=== PATIENT | female | born 2000 | race Caucasian/White ===

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

== ENCOUNTER → 2020-10-12 17:14 | Outpatient (CLI) | payer OTHER, SELFPAY ==
[2020-10-12 17:40] LABS: Basophils # 0.1 K/mm3 (0-0.2); Basophils % 0.5 % (0.1-2.0); Eosinophils % 0.3 % (0.1-12.0); Hematocrit 46.1 % (37.0-47.0); Hemoglobin 14.4 g/dL (12.2-16.2); Lymphocytes # 2.9 K/mm3 (0.7-4.5); Lymphocytes % 26.7 % (10-50); Mean Corpuscular HGB Conc 31.2 g/dL (31.8-35.4); Mean Corpuscular Hemoglobin 26.3 pg (27.0-31.2); Mean Corpuscular Volume 84.2 fl (81-99); Mean Platelet Volume 7.5 fl (7.4-10.4); Monocytes # 0.6 K/mm3 (0.1-1.0); Monocytes % 5.3 % (1.7-9.3); Neutrophils # 7.2 K/mm3 (1.8-7.8); Neutrophils % 67.2 % (37.0-80.0); Platelet Count 283 K/mm3 (142-424); Red Blood Count 5.48 M/mm3 (4.20-5.40); Red Cell Distribution Width 13.5 % (11.5-17.5); White Blood Count 10.7 K/mm3 (4.5-13.0)
[2020-10-12 17:58] LABS: Alanine Aminotransferase 39 U/L (12-78); Albumin Level 5.1 g/dl (3.5-5.0); Albumin/Globulin Ratio 1.5 (1.1-1.8); Alkaline Phosphatase 79 U/L (38-126); Anion Gap 13.2 mEq/L (5-15); Aspartate Amino Transferase 38 U/L (14-36); Bilirubin,Total 0.6 mg/dl (0.2-1.3); Blood Urea Nitrogen 6 mg/dl (7-17); Calcium 10.2 mg/dl (8.4-10.2); Carbon Dioxide 26 mmol/L (22.0-30.0); Chloride 106 mmol/L (98-107); Estimated Glomerular Filt Rate 91 ml/min (>60); GFR (African American) 111 ML/MIN (>60); Globulin 3.3 g/dL (1.3-3.2); Glucose 97 mg/dl (74-100); Potassium 4.2 mmoL/L (3.5-5.1); Sodium 141 mmol/L (136-145); Total Protein,Serum 8.4 g/dl (6.3-8.2)
[2020-10-15 09:14] LABS: Hep A Ab, IgM Negative (Negative); Hepatitis B Core Antibody IgM Negative (Negative); Hepatitis B Surface Antigen Negative (Negative)
[2020-10-15 10:51] LABS: Hepatitis C Antibody 0.1 s/co ratio (0.0-0.9)
== END ==
PROVIDERS: Visit Provider Internal Medicine Adolescent Medicine
DX: F31.31 Bipolar disorder, current episode depressed, mild (principal)
CPT/HCPCS: 36415; 80053; 80074; 85025

== ENCOUNTER 2021-01-22 19:39 | Emergency (ER) | payer OTHER, SELFPAY ==
[2021-01-22 20:15] VITALS: BP 129/73; PULSE 99; RESP 18; TEMP 37; O2SAT 99; BMI 34.9
--- NOTE | 2021-01-22 20:50 | HMH.EDUTC ---
[facility] [place] Clinical Impression: Pilonidal cyst Cellulitis Qualifiers: Site of cellulitis: buttock Qualified Code(s): L03.317 - Cellulitis of buttock Disposition: Home, Self-Care Condition on Discharge: Good Instructions: Cellulitis, Pilonidal Cyst Additional Instructions: Do Sitz baths of sit in a tub of warm salt water 2 or 3 times per day for 15 minutes each. Take the medication as directed. Apply the topical medication as directed. Prescriptions: Sulfamethoxazole/Trimethoprim [Bactrim DS tablet] 1 each PO BID 10 Days #20 tab Transmission Status: Received by [facility] #[id number] Mupirocin [Bactroban 2% Ointment 22gm tube] 1 applicatio TP TID 7 Days #1 tube Transmission Status: Received by [facility] #[id number] cephALEXin [cephALEXin 500mg capsule] 500 mg PO Q6H 10 Days #40 cap Transmission Status: Received by [facility] #[id number] Referrals: Ravi Askew MD [Primary Care Provider] - Forms: Work/School Release Time of Disposition: 21:26 Medical Decision Making - Medical Records Medical records reviewed: No: I reviewed the patient's medical records. - Vivek Inquiry Pt receiving controlled substance: No Vital Signs: 01/22/21 20:15 01/22/21 21:24 Temperature 98.6 F 98.6 F Temperature Source Oral Pulse Rate 99 H Pulse Rate [Right Brachial] 99 H Respiratory Rate 18 18 Blood Pressure 129/73 Blood Pressure [Right Arm] 129/73 Blood Pressure Mean [Right Arm] 91 Blood Pressure Source [Right Arm] Automatic Cuff Blood Pressure Position [Right Arm] Sitting 02 Sat by Pulse Oximetry 99 Oxygen Delivery Method Room Air Orders (Tests/Meds): ED MEDICATIONS Discontinued Medications Generic Name Dose Route Start Last Admin Trade Name Freq PRN Reason Stop Dose Admin Ceftriaxone Sodium 1 gm 01/22/21 20:51 01/22/21 20:59 Ceftriaxone 1gm Vial IM 01/22/21 20:52 1 gm ONCE ONE Administration Protocol Lidocaine HCl 0 ml 01/22/21 20:51 01/22/21 20:59 Lidocaine 1% 5ml Pf Vial IM 01/22/21 20:52 2.1 ml ONCE ONE Administration [facility] [place] - General Stated complaint: infect insect bite on back Time Seen by Provider: 01/22/21 20:25 Mode of Arrival: Ambulatory Source of Information: Patient Limitations: No Limitations Description of Symptoms (Recalled from Triage Doc. by RN): PATIENT C/O POSSIBLE BUG BITE/ALLERGIC REACTION TO LOWER BACK X 5 DAYS HEENT Symptoms (Recalled from RN notes): No Resp Symptoms (Recalled from RN notes): No Skin Symptoms (Recalled from RN notes): Yes MS Symptoms (Recalled from RN notes): No Functional Status (Recalled from RN notes): WNL - History of Present Illness Provider Complaint: She states that on her very lower back there is swelling and drainage from an infection. She thinks that she got bit by a bug and it started this. She denies any fever or chills. - Related Data Home Medications Medication Instructions Recorded Confirmed L norgest/E estradiol-E estrad 1 tab PO 91 Days tab 02/03/18 03/04/19 0.15 mg-30 mcg (84)/10 mcg(7) tabs,3mos loratadine 10 mg tablet 10 mg PO 30 Days tab 02/03/18 03/04/19 aripiprazole 15 mg tablet PO #30 tab 03/04/19 03/04/19 fluticasone propionate 50 INTRANASAL #16 g 03/04/19 03/04/19 mcg/actuation nasal spray,suspension hydroxyzine pamoate 25 mg capsule PO #100 cap 03/04/19 03/04/19 Previous Rx's Medication Instructions Recorded amoxicillin 875 mg tablet 875 mg PO BID 10 Days #20 tab 03/04/19 ukkeqsmebmoalif-snckfuopseqwutu-SB 10 ml PO Q4-6H PRN #220 ml 03/04/19 2 mg-30 mg-10 mg/5 mL oral syrup Mupirocin [Bactroban 2% Ointment 1 applicatio TP TID 7 Days #1 tube 01/22/21 22gm tube] Sulfamethoxazole/Trimethoprim 1 each PO BID 10 Days #20 tab 01/22/21 [Bactrim DS tablet] cephALEXin [cephALEXin 500mg 500 mg PO Q6H 10 Days #40 cap 01/22/21 capsule] Allergies Allergy/AdvReac Type Severity Reaction Status Date / Time No Known Jameel
[2021-01-22 21:24] VITALS: BP 129/73; PULSE 99; RESP 18; TEMP 37; O2SAT 99
== END 2021-01-22 21:39 | disposition home or self-care (01) ==
PROVIDERS: Emergency Provider Nurse Practitioner Family; PCP Internal Medicine Adolescent Medicine
DX: L05.91 Pilonidal cyst without abscess (principal); F17.210 Nicotine dependence, cigarettes, uncomplicated
CPT/HCPCS: 96372; 99202; G0463

== ENCOUNTER 2021-10-16 09:37 | Emergency (ER) | payer OTHER, SELFPAY ==
[2021-10-16] VITALS (8 sets, daily range): BP systolic 112–137; BP diastolic 53–85; PULSE 73–93; RESP 17–18; TEMP 36.6–36.9; O2SAT 4–99; BMI 32.0
--- NOTE | 2021-10-16 11:06 | HMH.EDUTC ---
[facility] [place] [facility] [place] Impression: Viral upper respiratory infection Decreased movement Qualifiers: Fetus number: fetus 6 or greater Trimester: unspecified trimester Qualified Code(s): O36.8199 - Decreased movements, unspecified trimester, other fetus Disposition: Home, Self-Care Condition on Discharge: Fair Instructions: DI for Viral Upper Respiratory Infection -- Adult Additional Instructions: Follow-up in Dr. Li's office on Thursday for further evaluation, ultrasound. Return to emergency department if any severe abdominal pain, vaginal bleeding, uncontrollable vomiting, bloody diarrhea, fever greater than 100.[address] Cortez office called with appt time Thursday at 10am for ultrasound and then 10:30 for office visit. Referrals: Ravi Askew MD [Primary Care Provider] - Forms: Work/School Release Time of Disposition: 11:17 Medical Decision Making - Vivek Inquiry Pt receiving controlled substance: No Vivek was queried for this patient: No Vital Signs: 10/16/21 10:50 10/16/21 11:18 10/16/21 12:00 Temperature 98 F 98.5 F Temperature Source Oral Oral Pulse Rate 78 Pulse Rate [Left] 93 H 73 Respiratory Rate 18 18 Blood Pressure 134/53 L Blood Pressure [Right Arm] 128/77 134/60 Blood Pressure Mean 82 Blood Pressure Mean [Right Arm] 94 84 Blood Pressure Source [Right Arm] Automatic Cuff Blood Pressure Position [Right Arm] Sitting 02 Sat by Pulse Oximetry 99 99 97 Oxygen Delivery Method Room Air 10/16/21 12:30 10/16/21 13:00 10/16/21 13:32 Temperature Temperature Source Pulse Rate 78 84 83 Pulse Rate [Left] Respiratory Rate Blood Pressure 137/85 127/74 137/79 Blood Pressure [Right Arm] Blood Pressure Mean 94 92 98 Blood Pressure Mean [Right Arm] Blood Pressure Source [Right Arm] Blood Pressure Position [Right Arm] 02 Sat by Pulse Oximetry 99 98 95 Oxygen Delivery Method 10/16/21 15:05 10/16/21 15:38 Temperature 98.5 F Temperature Source Oral Pulse Rate 80 81 Pulse Rate [Left] Respiratory Rate 17 Blood Pressure 114/53 L 112/74 Blood Pressure [Right Arm] Blood Pressure Mean 68 Blood Pressure Mean [Right Arm] Blood Pressure Source [Right Arm] Blood Pressure Position [Right Arm] 02 Sat by Pulse Oximetry 4 L Oxygen Delivery Method Room Air - Lab Data Lab Results 10/16/21 11:23: Urine Color Yellow, Urine Appearance Clear, Urine pH 7.0, Ur Specific [place] <= 1.005, Urine Protein Negative, Urine Glucose (UA) Negative, Urine Ketones 2+, Urine Blood Negative, Urine Nitrate Negative, Urine Bilirubin Negative, Urine Urobilinogen 0.2, Ur Leukocyte Esterase Negative, Urine RBC None, Urine WBC None, Ur Squamous Epith Cells 3-5, Urine Bacteria Trace 10/16/21 13:01: SARS-CoV-2 (PCR) Not detected, Influenza A Untype (PCR) Not detected, Influenza Type B (PCR) Not detected 10/16/21 14:14: WBC 11.2 H, RBC 4.52, Hgb 12.9, Hct 38.7, MCV 85.6, MCH 28.4, MCHC 33.2, RDW 13.8, Plt Count 257, MPV 8.1, Neut % (Auto) 74.4, Lymph % (Auto) 17.8, [place] % (Auto) 4.0, Eos % (Auto) 3.0, Baso % (Auto) 0.8, Neut # (Auto) 8.3 H, Lymph # (Auto) 2.0, [place] # (Auto) 0.4, Eos # (Auto) 0.3, Baso # (Auto) 0.1 10/16/21 14:14: Sodium 137, Potassium 3.6, Chloride 103, Carbon Dioxide 23, Anion Gap 14.6, BUN 4 L, Creatinine 0.50 L, Estimated Creat Clear 277, Estimated GFR 156, Est GFR ( Amer) 188, Glucose 77, Calcium 8.9, Total Bilirubin 0.8, AST 25, ALT 21, Alkaline Phosphatase 87, Total Protein 7.7, Albumin 4.2, Globulin 3.5 H, Albumin/Globulin Ratio 1.2 Result diagrams: 10/16/21 14:14 10/16/21 14:14 Orders (Tests/Meds): ED MEDICATIONS Discontinued Medications Generic Name Dose Route Start Last Admin Trade Name Freq PRN Reason Stop Dose Admin Sodium Chloride 1,000 ml 10/16/21 13:50 10/16/21 14:17 Sodium Chloride 0.9% 1000ml Bag IV 10/16/21 13:51 1,000 ml BOLUS ONE Administration Sodium Chloride 10 ml 10/16/21 13:50 S
--- NOTE | 2021-10-16 11:16 | PC.NURSE ---
FHT obtained via doppler, HR 146 notified ACACIA ASHER
--- NOTE | 2021-10-16 11:25 | PC.NURSE ---
contacted OB department spoke with DEYSI Bhatt; states with pt being 21 weeks they would obtain heart tones is all they would do, states fetus it too early for an NST. Relayed information to ACACIA ASHER
--- NOTE | 2021-10-16 11:30 | PC.NURSE ---
ACACIA ASHER at
[2021-10-16 11:51] LABS: Microscopic, Urine URINE MICROSCOPIC (MICROSCOPIC)
[2021-10-16 11:55] LABS: Appearance,Urine CLEAR (Clear); Bilirubin,Urine Negative (Negative); Blood, Urine Negative (Negative); Color,Urine YELLOW (Yellow); Glucose,Urine (UA) Negative (Negative); Ketones,Urine 2+ (Negative); Leukocyte Esterase,Urine Negative (Negative); Nitrate,Urine Negative (Negative); Protein,Urine Negative (Negative); Specific Gravity, Urine <= 1.005 (1.005-1.030); Urobilinogen,Urine 0.2 EU/dl (0.2)
[2021-10-16 12:07] LABS: Bacteria,Urine Trace /lpf
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
[2021-10-16 13:09] LABS: Coronavirus 19, PCR Not Detected (NotDetected); Influenza A, PCR Not Detected (NotDetected); Influenza B, PCR Not Detected (NotDetected)
--- NOTE | 2021-10-16 13:23 | HMH.EDGENADL ---
ED Disposition Clinical Impression: Viral upper respiratory infection Decreased movement Qualifiers: Fetus number: fetus 6 or greater Trimester: unspecified trimester Qualified Code(s): O36.8199 - Decreased movements, unspecified trimester, other fetus Disposition: Home, Self-Care Condition on Discharge: Good Instructions: DI for Viral Upper Respiratory Infection -- Adult Additional Instructions: Follow-up in Dr. Li's office on Thursday for further evaluation, ultrasound. Return to emergency department if any severe abdominal pain, vaginal bleeding, uncontrollable vomiting, bloody diarrhea, fever greater than 100.5 degrees. Referrals: Ravi Askew MD [Primary Care Provider] - - Critical Care Critical Care Time: No Attestation: On 10/16/21, the high probability of a clinically significant, sudden or life threatening deterioration of the following system(s) required my full and direct attention, intervention and personal management. The time I documented below is in addition to time spent performing reported procedures but includes the following listed in this critical care notation. Medical Decision Making - Vivek Inquiry Pt receiving controlled substance: No Vital Signs: 10/16/21 10:50 10/16/21 11:18 10/16/21 12:00 Temperature 98 F 98.5 F Temperature Source Oral Oral Pulse Rate 78 Pulse Rate [Left] 93 H 73 Respiratory Rate 18 18 Blood Pressure 134/53 L Blood Pressure [Right Arm] 128/77 134/60 Blood Pressure Mean 82 Blood Pressure Mean [Right Arm] 94 84 Blood Pressure Source [Right Arm] Automatic Cuff Blood Pressure Position [Right Arm] Sitting 02 Sat by Pulse Oximetry 99 99 97 Oxygen Delivery Method Room Air - Lab Data Lab Results 10/16/21 11:23: Urine Color Yellow, Urine Appearance Clear, Urine pH 7.0, Ur Specific [place] <= 1.005, Urine Protein Negative, Urine Glucose (UA) Negative, Urine Ketones 2+, Urine Blood Negative, Urine Nitrate Negative, Urine Bilirubin Negative, Urine Urobilinogen 0.2, Ur Leukocyte Esterase Negative, Urine RBC None, Urine WBC None, Ur Squamous Epith Cells 3-5, Urine Bacteria Trace 10/16/21 13:01: SARS-CoV-2 (PCR) Not detected, Influenza A Untype (PCR) Not detected, Influenza Type B (PCR) Not detected Orders (Tests/Meds): ED MEDICATIONS Generic Name Dose Route Start Last Admin Trade Name Freq PRN Reason Stop Dose Admin Sodium Chloride 10 ml 10/16/21 13:50 Sodium Chloride 0.9% 10ml Flush Syringe IV 11/15/21 13:49 NEEDED PRN Maintain IV Site Discontinued Medications Generic Name Dose Route Start Last Admin Trade Name Freq PRN Reason Stop Dose Admin Sodium Chloride 1,000 ml 10/16/21 13:50 Sodium Chloride 0.9% 1000ml Bag IV 10/16/21 13:51 BOLUS ONE ORDERS Category Date Time Status Complete Blood Count Auto Diff Stat Lab 10/16/21 13:50 Ordered Comprehensive Metabolic Panel Stat Lab 10/16/21 13:50 Ordered - Physician Consults Physician Consulted: Guillermo Time: 13:52 Reason -: Obstetrical Eval/Care Comment/Response: Agrees with management. Discharge after IV fluids. Follow-up in their office on Thursday. They will call the emergency department with an appointment time. General Adult HPI - General Chief complaint: OB/Uterine Contractions Stated complaint: cough, fever, congestion, vomiting, diarrhea Time Seen by Provider: 10/16/21 13:23 Mode of Arrival: Ambulatory Limitations: No Limitations Description of Symptoms (Recalled from ER Triage Doc. by RN): Pt reports has not felt movement since yesterday morning. Pt reports she contacted her OB office who directed her to be seen in ER. Pt denies vaginal bleeding, denies pelvic pain. Pt reports sheis 21 weeks gestation, G1. OB is Dr. Li in [place]. Pt also reports has had diarrhea, cough and congestion. - History of Present Illness HPI narrative: Prima , 21 weeks gestation . Sent from the urgent treatmen
--- NOTE | 2021-10-16 13:35 | PC.NURSE ---
Called Dr Dana MANRIQUEZ in [place], to consult with patient. He was not in but they are going to have interactive developer Dr palm back.
[2021-10-16 14:23] LABS: Basophils # 0.1 K/mm3 (0-0.2); Basophils % 0.8 % (0.1-2.0); Eosinophils # 0.3 K/mm3 (0.0-0.4); Hematocrit 38.7 % (37.0-47.0); Hemoglobin 12.9 g/dL (12.2-16.2); Lymphocytes % 17.8 % (10-50); Mean Corpuscular HGB Conc 33.2 g/dL (31.8-35.4); Mean Corpuscular Hemoglobin 28.4 pg (27.0-31.2); Mean Corpuscular Volume 85.6 fl (81-99); Mean Platelet Volume 8.1 fl (7.4-10.4); Monocytes # 0.4 K/mm3 (0.1-1.0); Neutrophils # 8.3 K/mm3 (1.8-7.8); Neutrophils % 74.4 % (37.0-80.0); Platelet Count 257 K/mm3 (142-424); Red Blood Count 4.52 M/mm3 (4.20-5.40); Red Cell Distribution Width 13.8 % (11.5-17.5); White Blood Count 11.2 K/mm3 (4.8-10.8)
[2021-10-16 14:30] LABS: Chloride 103 mmol/L (98-107); Potassium 3.6 mmoL/L (3.5-5.1); Sodium 137 mmol/L (136-145)
[2021-10-16 14:33] LABS: Alanine Aminotransferase 21 U/L (12-78); Albumin Level 4.2 g/dl (3.5-5.0); Albumin/Globulin Ratio 1.2 (1.1-1.8); Alkaline Phosphatase 87 U/L (38-126); Anion Gap 14.6 mEq/L (5-15); Aspartate Amino Transferase 25 U/L (14-36); Bilirubin,Total 0.8 mg/dl (0.2-1.3); Blood Urea Nitrogen 4 mg/dl (7-17); Carbon Dioxide 23 mmol/L (22.0-30.0); Creatinine Clearance Estimated 277 mL/min (50-200); Estimated Glomerular Filt Rate 156 ml/min (>60); GFR (African American) 188 ML/MIN (>60); Globulin 3.5 g/dL (1.3-3.2); Total Protein,Serum 7.7 g/dl (6.3-8.2)
[2021-10-16 14:34] LABS: Calcium 8.9 mg/dl (8.4-10.2); Glucose 77 mg/dl (74-100)
== END 2021-10-16 15:41 | disposition home or self-care (01) ==
LOC: UTC 09:42 → ER 11:10
PROVIDERS: Emergency Provider Emergency Medicine; PCP Internal Medicine Adolescent Medicine
DX: J06.9 Acute upper respiratory infection, unspecified (principal); R11.2 Nausea with vomiting, unspecified; O36.8121 Decreased fetal movements, second trimester, fetus 1; J45.909 Unspecified asthma, uncomplicated; F17.210 Nicotine dependence, cigarettes, uncomplicated
CPT/HCPCS: 80053; 81001; 85025; 96360; 96365; 99283; C9803; U0003; U0005

== ENCOUNTER 2021-12-01 08:23 | Outpatient (CLI) | payer OTHER, SELFPAY ==
[2021-12-01 08:26] VITALS: BP 132/76; PULSE 92; RESP 18; O2SAT 98; BMI 33.0
[2021-12-01 08:32] VITALS: BMI 37.3
[2021-12-01 08:53] LABS: Microscopic, Urine URINE MICROSCOPIC (MICROSCOPIC)
[2021-12-01 08:59] LABS: Appearance,Urine CLOUDY (Clear); Blood, Urine Negative (Negative); Color,Urine ORANGE (Yellow); Glucose,Urine (UA) Negative (Negative); Ketones,Urine 3+ (Negative); Leukocyte Esterase,Urine Negative (Negative); Nitrate,Urine POSITIVE (Negative); Protein,Urine 3+ (Negative); Specific Gravity, Urine >= 1.030 (1.005-1.030); Urobilinogen,Urine 0.2 EU/dl (0.2)
[2021-12-01 09:08] LABS: Barbiturates Screen,Urine Negative ng/ml (<200)
[2021-12-01 09:09] LABS: Benzodiazepines Screen,Urine Negative ng/ml (<200)
[2021-12-01 09:10] LABS: Amphetamine/Metha Screen,Urine Negative ng/ml (<1000); Cannabinoid Screen,Urine Positive ng/ml (<50)
[2021-12-01 09:11] LABS: Cocaine Screen,Urine Negative ng/ml (<300)
[2021-12-01 09:12] LABS: Methadone Screen,Urine Negative ng/ml (<300); Opiate Screen,Urine Negative ng/ml (<300)
[2021-12-01 09:13] LABS: Phencyclidine Screen,Urine Negative ng/ml (<25)
[2021-12-01 09:17] LABS: Coronavirus 19, PCR Not Detected (NotDetected); Influenza A, PCR Not Detected (NotDetected); Influenza B, PCR Not Detected (NotDetected)
[2021-12-01 09:24] LABS: Bilirubin,Urine 2+ (Negative)
[2021-12-01 09:25] LABS: Amorphous Sediment,Urine 1+ /lpf; Bacteria,Urine 4+ /lpf; RBC,Urine Occasional #/hpf (0-3)
[2021-12-01 09:44] LABS: Basophils # 0.2 K/mm3 (0-0.2); Basophils % 1.1 % (0.1-2.0); Hematocrit 37.9 % (37.0-47.0); Hemoglobin 12.9 g/dL (12.2-16.2); Lymphocytes # 1.7 K/mm3 (0.7-4.5); Lymphocytes % 10.1 % (10-50); Mean Corpuscular Hemoglobin 29.1 pg (27.0-31.2); Mean Corpuscular Volume 85.8 fl (81-99); Mean Platelet Volume 8.3 fl (7.4-10.4); Monocytes # 0.6 K/mm3 (0.1-1.0); Monocytes % 3.3 % (1.7-9.3); Neutrophils # 14.6 K/mm3 (1.8-7.8); Neutrophils % 85.4 % (37.0-80.0); Platelet Count 245 K/mm3 (142-424); Red Blood Count 4.42 M/mm3 (4.20-5.40); Red Cell Distribution Width 13.4 % (11.5-17.5); White Blood Count 17.1 K/mm3 (4.8-10.8)
[2021-12-01 09:47] LABS: MANUAL DIFFERENTIAL MANUAL DIFFERENTIAL (MANUAL DIFF)
[2021-12-01 09:56] LABS: Chloride 100 mmol/L (98-107); Potassium 3.6 mmoL/L (3.5-5.1); Sodium 136 mmol/L (136-145)
[2021-12-01 09:58] LABS: Blood Urea Nitrogen 5 mg/dl (7-17); Creatinine Clearance Estimated 277 mL/min (50-200); Estimated Glomerular Filt Rate 156 ml/min (>60); GFR (African American) 188 ML/MIN (>60)
[2021-12-01 09:59] LABS: Alanine Aminotransferase 20 U/L (12-78); Albumin Level 3.8 g/dl (3.5-5.0); Albumin/Globulin Ratio 1.3 (1.1-1.8); Alkaline Phosphatase 108 U/L (38-126); Anion Gap 13.6 mEq/L (5-15); Aspartate Amino Transferase 23 U/L (14-36); Bilirubin,Total 0.6 mg/dl (0.2-1.3); Calcium 9.9 mg/dl (8.4-10.2); Carbon Dioxide 26 mmol/L (22.0-30.0); Globulin 2.9 g/dL (1.3-3.2); Glucose 118 mg/dl (74-100); Total Protein,Serum 6.7 g/dl (6.3-8.2)
[2021-12-01 10:33] LABS: Lymphocytes % 18 % (10-50); Monocytes % 2 % (2-9); Neutrophils % 80 % (42-76); Total Cells Counted 100
[2021-12-01 10:34] LABS: Platelet Estimate Normal; RBC Morphology Normal
--- NOTE | 2021-12-01 12:06 | P.PN_ITS ---
Internal Medicine - PN: Subj *Date: 12/01/21 *Time: 12:06 Interval history: She is a 20-year-old 1 para 0 at 27 and 4 weeks gestational age. She has nausea, vomiting and diarrhea. She denies any fever or chills. She has been here for the last few hours and has had IV fluids. She is feeling much better. We gave her IV Zofran. She has had no further episodes of nausea or vomiting. She does have Zofran at home but she has the tablets rather than the ODT's. Blood work and urinalysis shows likely UTI with dehydration. She has positive nitrites. Exam Vital signs and Labs for Last 24 Hours: Pulse Resp BP Pulse Ox 92 H 18 132/76 98 12/01/21 08:26 12/01/21 08:26 12/01/21 08:26 12/01/21 08:26 Laboratory Results - last 24 hr 12/01/21 08:35: Urine Color [place], Urine Appearance Cloudy, Urine pH 6.0, Ur Specific [place] >= 1.030, Urine Protein 3+, Urine Glucose (UA) Negative, Urine Ketones 3+, Urine Blood Negative, Urine Nitrate Positive, Urine Bilirubin 2+ A, Urine Urobilinogen 0.2, Ur Leukocyte Esterase Negative, Urine RBC Occasional, Urine WBC 3-5, Ur Squamous Epith Cells 5-10, Amorphous Sediment 1+, Urine Bacteria 4+ 12/01/21 08:35: Urine Opiates Screen Negative, Urine Methadone Screen Negative, Ur Barbituates Screen Negative, Ur Phencyclidine Scrn Negative, Ur Amphetamines Screen Negative, U Benzodiazepines Scrn Negative, Urine Cocaine Screen Negative, U Marijuana (THC) Screen Positive H 12/01/21 09:10: SARS-CoV-2 (PCR) Not detected, Influenza A Untype (PCR) Not detected, Influenza Type B (PCR) Not detected 12/01/21 09:25: WBC 17.1 H, RBC 4.42, Hgb 12.9, Hct 37.9, MCV 85.8, MCH 29.1, MCHC 34.0, RDW 13.4, Plt Count 245, MPV 8.3, Neut % (Auto) 85.4 H, Lymph % (Auto) 10.1, [place] % (Auto) 3.3, Eos % (Auto) 0.0 L, Baso % (Auto) 1.1, Neut # (Auto) 14.6 H, Lymph # (Auto) 1.7, [place] # (Auto) 0.6, Eos # (Auto) 0.0, Baso # (Auto) 0.2, Total Counted 100, Neutrophils % (Manual) 80 H, Lymphocytes % (Manual) 18, Monocytes % (Manual) 2, Platelet Estimate Normal, RBC Morphology Normal 12/01/21 09:25: Sodium 136, Potassium 3.6, Chloride 100, Carbon Dioxide 26, Anion Gap 13.6, BUN 5 L, Creatinine 0.50 L, Estimated Creat Clear 277, Estimated GFR 156, Est GFR ( Amer) 188, Glucose 118 H, Calcium 9.9, Total Bilirubin 0.6, AST 23, ALT 20, Alkaline Phosphatase 108, Total Protein 6.7, Albumin 3.8, Globulin 2.9, Albumin/Globulin Ratio 1.3 I & O for Last 24 hours: Intake & Output 11/29/21 11/30/21 12/01/21 12/02/21 11:59 11:59 11:59 11:59 Weight 217 lb 8 oz - Constitutional no acute distress Assessment and Plan (1) Vomiting affecting Status: Acute Category: Medical Code(s): O21.9 - Vomiting of , unspecified (2) Dehydration Status: Acute Category: Medical Code(s): E86.0 - Dehydration (3) Urinary tract infection affecting Status: Acute Category: Medical Code(s): O23.40 - Unspecified infection of urinary tract in , unspecified trimester - Assessment and plan all Dx Assessment and Plan for all problems:: She has received 2 L of fluid and feels much better. She received IV Zofran. We will go ahead and start Keflex 500 mg p.o. twice daily for the next 7 days. She has received a dose of Ancef. We will call her in some Zofran ODT as well.
== END 2021-12-01 09:00 | disposition home or self-care (01) ==
LOC: OBOUT 08:24 → OB 08:25
PROVIDERS: PCP Internal Medicine Adolescent Medicine; Visit Provider Nurse Practitioner Obstetrics & Gynecology
DX: O26.892 Other specified pregnancy related conditions, second trimester (principal); Z3A.27 27 weeks gestation of pregnancy
CPT/HCPCS: 59025; 80053; 80305; 81001; 85007; 85025; 87086; 96365; 96366; 96367; C9803; G0463; J2405; U0003; U0005

== ENCOUNTER 2021-12-10 19:56 | Outpatient (CLI) | payer OTHER, SELFPAY ==
[2021-12-10 20:04] VITALS: BP 123/60; PULSE 72; RESP 17; TEMP 36.9; O2SAT 100; BMI 34.4
== END 2021-12-10 21:50 | disposition home or self-care (01) ==
LOC: OBOUT 19:58 → OB 19:59
PROVIDERS: Visit Provider Nurse Practitioner Obstetrics & Gynecology
DX: O21.2 Late vomiting of pregnancy (principal); Z3A.28 28 weeks gestation of pregnancy
CPT/HCPCS: 59025; 96365; G0463; J2405

== ENCOUNTER 2021-12-29 10:01 | Outpatient (CLI) | payer OTHER, SELFPAY ==
[2021-12-29 11:18] VITALS: BMI 33.4
[2021-12-29 11:25] VITALS: BP 145/87; PULSE 66; RESP 18; TEMP 36.4; O2SAT 100; BMI 33.4
[2021-12-29 11:33] LABS: Basophils # 0.4 K/mm3 (0-0.2); Basophils % 2.1 % (0.1-2.0); Chloride 104 mmol/L (98-107); Eosinophils % 0.2 % (0.1-12.0); Hematocrit 38.6 % (37.0-47.0); Hemoglobin 13.1 g/dL (12.2-16.2); Lymphocytes # 1.6 K/mm3 (0.7-4.5); Lymphocytes % 9.5 % (10-50); Mean Corpuscular HGB Conc 33.8 g/dL (31.8-35.4); Mean Platelet Volume 8.4 fl (7.4-10.4); Monocytes # 0.4 K/mm3 (0.1-1.0); Monocytes % 2.6 % (1.7-9.3); Neutrophils # 14.2 K/mm3 (1.8-7.8); Neutrophils % 85.5 % (37.0-80.0); Platelet Count 244 K/mm3 (142-424); Potassium 3.3 mmoL/L (3.5-5.1); Red Blood Count 4.49 M/mm3 (4.20-5.40); Red Cell Distribution Width 13.1 % (11.5-17.5); Sodium 136 mmol/L (136-145); White Blood Count 16.5 K/mm3 (4.8-10.8)
[2021-12-29 11:36] LABS: Blood Urea Nitrogen 3 mg/dl (7-17); Creatinine Clearance Estimated 278 mL/min (50-200); Estimated Glomerular Filt Rate 154 ml/min (>60); GFR (African American) 187 ML/MIN (>60)
[2021-12-29 11:37] LABS: Anion Gap 10.3 mEq/L (5-15); Calcium 9.2 mg/dl (8.4-10.2); Carbon Dioxide 25 mmol/L (22.0-30.0); Glucose 113 mg/dl (74-100)
[2021-12-29 11:39] LABS: MANUAL DIFFERENTIAL MANUAL DIFFERENTIAL (MANUAL DIFF)
[2021-12-29 12:24] LABS: Lymphocytes % 16 % (10-50); Neutrophils % 84 % (42-76); Platelet Estimate Normal; RBC Morphology Normal; Total Cells Counted 100
[2021-12-29 12:33] LABS: Microscopic, Urine URINE MICROSCOPIC (MICROSCOPIC)
[2021-12-29 12:37] LABS: Appearance,Urine SL CLOUDY (Clear); Blood, Urine Negative (Negative); Color,Urine YELLOW (Yellow); Glucose,Urine (UA) Negative (Negative); Ketones,Urine 1+ (Negative); Leukocyte Esterase,Urine Negative (Negative); Nitrate,Urine Negative (Negative); PH,Urine 8.5 (5.0-8.5); Protein,Urine 2+ (Negative); Specific Gravity, Urine 1.015 (1.005-1.030); Urobilinogen,Urine 0.2 EU/dl (0.2)
[2021-12-29 12:49] LABS: Barbiturates Screen,Urine Negative ng/ml (<200); Bilirubin,Urine 1+ (Negative)
[2021-12-29 12:50] LABS: Benzodiazepines Screen,Urine Negative ng/ml (<200)
[2021-12-29 12:51] LABS: Amorphous Sediment,Urine 1+ /lpf; Amphetamine/Metha Screen,Urine Negative ng/ml (<1000); Bacteria,Urine Trace /lpf; Cannabinoid Screen,Urine Positive ng/ml (<50)
[2021-12-29 12:52] LABS: Cocaine Screen,Urine Negative ng/ml (<300); Methadone Screen,Urine Negative ng/ml (<300)
[2021-12-29 12:53] LABS: Opiate Screen,Urine Negative ng/ml (<300)
[2021-12-29 12:54] LABS: Phencyclidine Screen,Urine Negative ng/ml (<25)
[2021-12-29 13:16] LABS: Alanine Aminotransferase 24 U/L (12-78); Aspartate Amino Transferase 31 U/L (14-36)
== END 2021-12-29 13:53 | disposition home or self-care (01) ==
LOC: OBOUT 10:07 → OB 10:08
PROVIDERS: PCP Internal Medicine Adolescent Medicine; Visit Provider Obstetrics & Gynecology
DX: O26.893 Other specified pregnancy related conditions, third trimester (principal); Z3A.31 31 weeks gestation of pregnancy; R11.2 Nausea with vomiting, unspecified; R19.7 Diarrhea, unspecified
CPT/HCPCS: 59025; 80048; 80305; 81001; 84450; 84460; 85007; 85025; 96365; 96367; G0463; J2405

== ENCOUNTER 2022-01-13 07:32 | Outpatient (CLI) | payer OTHER, SELFPAY ==
[2022-01-13 08:35] VITALS: BP 137/81; PULSE 108; RESP 20; TEMP 36.9; O2SAT 98; BMI 31.7
--- NOTE | 2022-01-13 08:50 | HMH.HPDC ---
General - General Admission date:: 01/13/2022 Discharge date: 01/13/22 (Transfer to [facility]) *Admission Date: 01/13/22 *Chief complaint: Contractions, possible leakage of fluid *History of present illness: Ms Marsha Mcgee is a 21 yo at 33+ weeks who presents to [facility] with complaint of contractions that started at 0600 this morning. She also thinks she may be leaking fluid. Patient is unattached. She is being cared for by [facility] office. She reports good movement. She denies difficulties during this . She denies past medical history. Upon arrival to [facility], SVE was 4-5/100/-1. heart tones category 1. [facility] History I have reviewed the patient's past medical history: Yes Medical History: Reports:: Asthma Denies:: Cancer, Diabetes Mellitus Type 1, Diabetes Mellitus Type 2, MRSA *Have you ever received a pneumonia vaccine?: No *Have you received a flu vaccine this season?: No Other Surgeries: Yes: No Previous Surgery Amputation: No Fractures: No - *Social History Smoking Status: Current every day smoker Tobacco Type: cigarettes # Packs/Day (cigarettes): 1 Alcohol Intake: never Substance Use Type: denies use *Occupational Status:: employed Housing: house Household Members: family *Travel in the last 8 weeks: None Family Hx:: Diabetes Para: 0 Review of Systems - Review of Systems Review of systems:: pertinent systems reviewed and negative unless documented below Exam Vital signs and Labs for Last 24 Hours: Temp Pulse Resp BP Pulse Ox 98.5 F 108 H 20 137/81 98 01/13/22 08:35 01/13/22 08:35 01/13/22 08:35 01/13/22 08:35 01/13/22 08:35 I & O for Last 24 hours: Intake & Output 01/10/22 01/11/22 01/12/22 01/13/22 23:59 23:59 23:59 23:59 Weight 215 lb - Constitutional no acute distress - *Routine HEENT Exam Head: Present: normocephalic Eye: Absent: conjunctivae pink ENT: Present: mucous membranes moist - *Routine Respiratory Exam Present: CTA bilaterally - *Routine Cardiovascular Exam Present: RRR - *Routine Abdominal Exam Present: soft. Absent: tenderness Comments: Gravid - *Routine Rectal Exam Rectal:: deferred - *Routine Genitalia Exam Genitalia:: normal female - *Routine Extremities Exam Present: edema, full ROM. Absent: calf tenderness Comments: +1 bilateral lower extremity edema - *Routine Neurological Exam Present: alert, oriented X3 Hospital Course Hospital Course: Ms Marsha Mcgee is a 21 yo at 33+ weeks who presented to [facility] with complaint of contractions that started at 0600 this morning. She thinks she is leaking fluid. Denies vaginal bleeding. Good movement. Denies complications during this . Past medical history significant for asthma. Upon arrival to L&D SVE was 4-5/100/-1. Cervical exam was performed early on arrival. Amnisure was not performed. FHT Category 1. [place] q 3-4. Patient received Celestone 12mg, Mag Sulfate 4 gm bolus with 1 gm/hr maintenance and Ampicillin 2 gram. Brethine 0.25 mg SQ x1 dose given. Patient receives care from [facility] office. Transfer to [facility] for labor. Discussed plan of care with patient. All questions addressed and answered. Patient and her family agree with plan. Rhogam Administration: Not Indicated DS: Diagnosis - Discharge Diagnosis (1) 1, currently Status: Acute (2) with 33 completed weeks gestation Status: Acute (3) labor Status: Acute (4) Asthma Status: Acute Discharge Plan - Patient Discharge Instructions ACTIVITY: Limited activity - Follow up Plan Condition at discharge:: Stable Home Medications: Home Medications Medication Instructions Recorded Confirmed Type L norgest/E estradiol-E estrad 1 tab PO 91 Days tab 02/03/18 03/04/19 History 0.15 mg-30 mcg (84)/10 mcg(7) tabs,3mos
== END 2022-01-13 10:21 | disposition short-term general hospital (02) ==
LOC: OBOUT 07:34 → OB 07:37
PROVIDERS: PCP Internal Medicine Adolescent Medicine; Visit Provider Obstetrics & Gynecology
DX: O47.03 False labor before 37 completed weeks of gestation, third trimester (principal); Z3A.33 33 weeks gestation of pregnancy
CPT/HCPCS: 59025; 96365; 96367; 96372; G0463; J0290; J0595; J2405

== ENCOUNTER 2022-08-19 09:49 | Outpatient (CLI) | payer OTHER, SELFPAY ==
[2022-08-19 09:57] VITALS: BMI 33.4
== END 2022-08-19 10:08 | disposition home or self-care (01) ==
PROVIDERS: PCP Internal Medicine Adolescent Medicine; Visit Provider Nurse Practitioner Family
DX: Z11.1 Encounter for screening for respiratory tuberculosis (principal)
CPT/HCPCS: 86580

== ENCOUNTER 2023-01-04 10:02 | Emergency (ER) | payer OTHER, SELFPAY ==
[2023-01-04 10:15] VITALS: BP 133/86; PULSE 86; RESP 18; TEMP 37.4; O2SAT 100; BMI 25.7
--- NOTE | 2023-01-04 10:42 | EXP.UTC ---
Discharge Plan Disposition Patient Disposition: Home, Self-Care Condition: Good Prescriptions Prescriptions: New amoxicillin [amoxicillin] 500 mg tablet 500 mg PO BID 10 Days Qty: 20 0RF No Action L norgest/e.estradiol-e.estrad 0.15 mg-30 mcg (84)/10 mcg (7) tablets,dose pack,3 month 1 tab PO 91 Days loratadine 10 mg tablet 10 mg PO 30 Days Label Comments: take 1 tablet by mouth once daily fluticasone propionate 50 mcg/actuation spray,suspension INTRANASAL Qty: 16 hydroxyzine pamoate 25 mg capsule PO Qty: 100 Label Comments: TAKE 1 CAPSULE BY MOUTH FOUR TIMES DAILY NEEDED MAY CAUSE DROWSINESS aripiprazole 15 mg tablet PO Qty: 30 amoxicillin 875 mg tablet 875 mg PO BID 10 Days Qty: 20 0RF ghurkslcrbldlns-ybxuhilou-NK 2-30-10 mg/5 mL syrup 10 ml PO Q4-6H PRN (Reason: sinus symptoms) Qty: 220 0RF sulfamethoxazole-trimethoprim 1 EACH tablet 1 each PO BID 10 Days Qty: 20 0RF mupirocin 22 GM ointment 1 applicatio TP TID 7 Days Qty: 1 0RF ondansetron 4 MG tablet,disintegrating 4 mg PO TIDP PRN (Reason: Nausea And Vomiting) Qty: 20 0RF cephalexin 500 MG capsule 500 mg PO Q6H 10 Days Qty: 40 0RF Referrals Follow up/Referrals: Ravi Askew MD [Primary Care Provider] - See instructions Activity Restrictions/Add. Instructions Additional Instructions/Restrictions: Start antibiotic as soon as possible and be sure to take as ordered for full length of time even though he should start feeling better in 24-48 hours. Tylenol or Motrin as needed for pain or fever Encourage fluids, water, Gatorade, Powerade, Pedialyte if infant/toddler/child Warm compresses often helps when placed over ear Return immediately for new or worsening symptoms no noticeable improvement in 48-72 hours and in 10-14 days to ensure the ears are return to baseline. Follow-up with primary care Clinical Impressions Clinical Impression: Acute otitis media, bilateral Instructions Patient Instructions: Middle Ear Infection Discharge ED Provider: Georgina ([facility] [place])Ashley [facility] HPI General Stated complaint: Ear pain, congestion, drainage, sore throat Mode of Arrival: Ambulatory Source of Information: Patient Limitations: No Limitations Time Seen by Provider: 01/04/23 10:42 Description of Symptoms (Recalled from Triage Doc. by RN): PATIENT C/O LEFT EAR PAIN AND SINUS PRESSURE X 2 DAYS HEENT Symptoms (Recalled from RN notes): Yes Resp Symptoms (Recalled from RN notes): No Skin Symptoms (Recalled from RN notes): No MS Symptoms (Recalled from RN notes): No Functional Status (Recalled from RN notes): WNL History of Present Illness Provider Complaint: 22 yr old female presents for left ear pain and sinus pressure Related Data Home Medications Medication Instructions Recorded Confirmed L norgest/E estradiol-E estrad 1 tab PO 91 days 02/03/18 03/04/19 0.15 mg-30 mcg (84)/10 mcg(7) tabs,3mos loratadine 10 mg tablet 10 mg PO 30 days 02/03/18 03/04/19 aripiprazole 15 mg tablet PO #30 tabs 03/04/19 03/04/19 fluticasone propionate 50 intranasal #16 grams 03/04/19 03/04/19 mcg/actuation nasal spray,suspension hydroxyzine pamoate 25 mg capsule PO #100 caps 03/04/19 03/04/19 Previous Rx's Medication Instructions Recorded amoxicillin 875 mg tablet 875 mg PO BID 10 days #20 tabs 03/04/19 kvzxjapmcnebrqv-ccwivxddapjwkiu-[place] 10 ml PO Q4-6H PRN sinus symptoms 03/04/19 2 mg-30 mg-10 mg/5 mL oral syrup #220 mL mupirocin 2 % topical ointment 1 applicatio TP TID 7 days #1 tube 01/22/21 sulfamethoxazole 800 1 each PO BID 10 days #20 tabs 01/22/21 mg-trimethoprim 160 mg tablet cephalexin 500 mg capsule 500 mg PO Q6H 10 days #40 caps 12/01/21 ondansetron 4 mg disintegrating 4 mg PO TIDP PRN Nausea And 12/01/21 tablet Vomiting #20 tabs amoxicillin 500 mg tablet 500 mg PO BID 10 days #20 tabs 01/04/23 Allergies Allergy/AdvReac Type Severity Reaction Stat
[2023-01-04 10:45] VITALS: BP 133/86; PULSE 86; RESP 18; TEMP 37.4; O2SAT 100
== END 2023-01-04 10:50 | disposition home or self-care (01) ==
PROVIDERS: Emergency Provider Nurse Practitioner Family; PCP Internal Medicine Adolescent Medicine
DX: H66.93 Otitis media, unspecified, bilateral (principal); F17.210 Nicotine dependence, cigarettes, uncomplicated
CPT/HCPCS: 99212; 99214; G0463

== ENCOUNTER 2023-03-28 08:10 | Emergency (ER) | payer OTHER, SELFPAY ==
[2023-03-28 08:10] VITALS: BP 131/77; PULSE 87; RESP 20; TEMP 36.7; O2SAT 100; BMI 33.5
--- NOTE | 2023-03-28 08:33 | EXP.UTC ---
Discharge Plan Disposition Patient Disposition: Home, Self-Care Condition: Good Prescriptions Prescriptions: New albuterol sulfate [Proventil HFA] 90 mcg/actuation HFA aerosol inhaler 1 - 2 inh inhalation Q6H PRN (Reason: shortness of breath or wheezing) Qty: 8.5 0RF ibuprofen 600 mg tablet 600 mg PO Q6HP PRN (Reason: Moderate Pain) Qty: 20 0RF methocarbamol 500 mg tablet 500 mg PO TID Qty: 15 0RF No Action L norgest/e.estradiol-e.estrad 0.15 mg-30 mcg (84)/10 mcg (7) tablets,dose pack,3 month 1 tab PO 91 Days loratadine 10 mg tablet 10 mg PO 30 Days Patient Comments: take 1 tablet by mouth once daily fluticasone propionate 50 mcg/actuation spray,suspension INTRANASAL Qty: 16 hydroxyzine pamoate 25 mg capsule PO Qty: 100 Patient Comments: TAKE 1 CAPSULE BY MOUTH FOUR TIMES DAILY NEEDED MAY CAUSE DROWSINESS aripiprazole 15 mg tablet PO Qty: 30 amoxicillin 875 mg tablet 875 mg PO BID 10 Days Qty: 20 0RF ohaqudedsofrzle-tyfuutrfb-IQ 2-30-10 mg/5 mL syrup 10 ml PO Q4-6H PRN (Reason: sinus symptoms) Qty: 220 0RF sulfamethoxazole-trimethoprim 1 EACH tablet 1 each PO BID 10 Days Qty: 20 0RF mupirocin 22 GM ointment 1 applicatio TP TID 7 Days Qty: 1 0RF ondansetron 4 MG tablet,disintegrating 4 mg PO TIDP PRN (Reason: Nausea And Vomiting) Qty: 20 0RF cephalexin 500 MG capsule 500 mg PO Q6H 10 Days Qty: 40 0RF amoxicillin [amoxicillin] 500 mg tablet 500 mg PO BID 10 Days Qty: 20 0RF Referrals Follow up/Referrals: Ravi Askew MD [Primary Care Provider] - See instructions Activity Restrictions/Add. Instructions Additional Instructions/Restrictions: *Ibuprofen alyse 6 hours with meal as needed for pain/inflammation *Not additional anti-inflammatory like motrin, aleve, advil with the above amount of ibuprofen. You can still take Tylenol every 4 hours as needed if you need something else for pain *Ice 20 minutes every 2 hours for the first 48 hours after the initial injury followed by moist heat every 20 minutes 3-4 times a day to affected area *Muscle relaxer every 8 hours as needed for muscle spasms but remember, it WILL cause drowsiness You cannot take it and drive, operate machinery or care for small children. *Keep this area active, no movement leads to more stiffness, However take it easy and avoid heavy lifting pushing or pulling *Follow up with you family doctor if no improvement for further treatment You were tested for today for COVID19 your test result should be back in the next 24-48 hours, you may check your results on the [facility] for the results Clinical Impressions Clinical Impression: Muscle strain Instructions Patient Instructions: Muscle Strain, DI for Low Back Pain Discharge ED Provider: Elisa Kim [facility] General Stated complaint: rib and back pain, no accident Mode of Arrival: Ambulatory Source of Information: Patient Limitations: No Limitations Time Seen by Provider: 03/28/23 08:33 Description of Symptoms (Recalled from Triage Doc. by RN): PATIENT C/O RIB/BACK PAIN AND CONGESTION. REQUESTING COVID TEST HEENT Symptoms (Recalled from RN notes): Yes Resp Symptoms (Recalled from RN notes): No Skin Symptoms (Recalled from RN notes): No MS Symptoms (Recalled from RN notes): Yes Functional Status (Recalled from RN notes): WNL History of Present Illness Provider Complaint: Patient states that he son has been sick with Rhinovirus States that she has been packing him around and he is 33lbs and thinks she may have pulled something in her ribs and got her lower back feeling achy and sore States that she also wanted to get tested for COVID to make sure she doesnt have that States that she has been having a little nasal congestion but she has been around her sick child so it may just be that Related Data Home Medications Medication Instructions Recorded Confirmed
[2023-03-28 08:34] VITALS: BP 131/77; PULSE 87; RESP 20; TEMP 36.7; O2SAT 100
[2023-03-28 08:34] LABS: UTC Pregnancy Test, Urine Negative (Negative)
== END 2023-03-28 08:52 | disposition home or self-care (01) ==
PROVIDERS: Emergency Provider Nurse Practitioner; PCP Internal Medicine Adolescent Medicine
DX: S39.012A Strain of muscle, fascia and tendon of lower back, initial encounter (principal); F17.210 Nicotine dependence, cigarettes, uncomplicated; X50.0XXA Overexertion from strenuous movement or load, initial encounter
CPT/HCPCS: 81025; 99212; 99214; G0463

== ENCOUNTER → 2023-05-09 09:26 | Outpatient (CLI) | payer OTHER, SELFPAY ==
[2023-05-09 09:40] LABS: Basophils % 0.5 % (0.1-2.0); Eosinophils # 0.1 K/mm3 (0.0-0.4); Eosinophils % 1.8 % (0.1-12.0); Hematocrit 40.6 % (37.0-47.0); Hemoglobin 14.1 g/dL (12.2-16.2); Lymphocytes # 2.8 K/mm3 (0.7-4.5); Mean Corpuscular HGB Conc 34.7 g/dL (31.8-35.4); Mean Corpuscular Volume 83.8 fl (81-99); Mean Platelet Volume 8.7 fl (7.4-10.4); Monocytes # 0.4 K/mm3 (0.1-1.0); Monocytes % 5.5 % (1.7-9.3); Neutrophils # 4.5 K/mm3 (1.8-7.8); Neutrophils % 57.2 % (37.0-80.0); Platelet Count 240 K/mm3 (142-424); Red Blood Count 4.84 M/mm3 (4.20-5.40); Red Cell Distribution Width 13.8 % (11.5-17.5); White Blood Count 7.9 K/mm3 (4.8-10.8)
[2023-05-09 11:47] LABS: Alanine Aminotransferase 45 U/L (12-78); Albumin Level 4.6 g/dl (3.5-5.0); Albumin/Globulin Ratio 1.4 (1.1-1.8); Alkaline Phosphatase 49 U/L (38-126); Anion Gap 13.5 mEq/L (5-15); Aspartate Amino Transferase 35 U/L (14-36); Bilirubin,Total 0.4 mg/dl (0.2-1.3); Blood Urea Nitrogen 7 mg/dl (7-17); Calcium 9.8 mg/dl (8.4-10.2); Carbon Dioxide 27 mmol/L (22.0-30.0); Chloride 105 mmol/L (98-107); Estimated Glomerular Filt Rate 89 ml/min (>60); GFR (African American) 108 ML/MIN (>60); Globulin 3.4 g/dL (1.3-3.2); Glucose 73 mg/dl (74-100); Potassium 4.5 mmoL/L (3.5-5.1); Sodium 141 mmol/L (136-145)
[2023-05-09 12:16] LABS: Thyroid Stimulating Hormone 0.89 uIU/mL (0.465-4.68)
== END ==
PROVIDERS: PCP Internal Medicine Adolescent Medicine; Visit Provider Nurse Practitioner Family
DX: R53.83 Other fatigue (principal)
CPT/HCPCS: 36415; 80053; 84443; 85025

== ENCOUNTER → 2023-06-02 13:43 | Outpatient (CLI) | payer OTHER, SELFPAY ==
--- NOTE | 2023-06-02 13:48 | CT_ITS ---
FINAL REPORT TECHNIQUE: Thin section axial images were obtained through the abdomen after intravenous contrast. Reconstruction images were obtained from the axial data. Exam was performed using dose reduction techniques. CLINICAL HISTORY: NAUSEA AND VOMITING FINDINGS: There is dependent atelectasis in the lung bases. There is focal fatty change adjacent to the falciform ligament. Otherwise the liver is homogeneous. The gallbladder is present. The spleen, adrenal glands, and pancreas are unremarkable. There is no hydronephrosis or solid renal mass. Abdominal GI tract is without acute abnormality. There are a few, thickened, fluid-filled small bowel loops in the upper abdomen favored to be related enteritis. There are multiple small mesenteric lymph nodes which are likely reactive. There is no ascites in the abdomen. The uterus is unremarkable and bladder are unremarkable. The pelvic portions of the GI tract, including the appendix, are without acute abnormality. There is no pelvic lymphadenopathy. There is physiologic free fluid. No acute osseous abnormalities identified. IMPRESSION: Mildly thickened, fluid-filled small bowel loops in the upper abdomen favored to be related to enteritis. Multiple small mesenteric lymph nodes. Reviewed, Interpreted and Dictated by Ying Huff MD Transcribed by Brittny Driver Authenticated and [facility]
== END ==
PROVIDERS: PCP Internal Medicine Adolescent Medicine; Visit Provider Nurse Practitioner Family
DX: R11.2 Nausea with vomiting, unspecified (principal); R63.4 Abnormal weight loss
CPT/HCPCS: 74177; Q9967

== ENCOUNTER 2023-08-04 07:42 | Emergency (ER) | payer OTHER, SELFPAY ==
[2023-08-04 07:43] VITALS: BP 111/77; PULSE 112; RESP 20; TEMP 36.8; O2SAT 98; BMI 26.6
[2023-08-04 07:50] LABS: Microscopic, Urine URINE MICROSCOPIC (MICROSCOPIC)
--- NOTE | 2023-08-04 07:50 | PC.NURSE ---
Dr. Faith at [facility] for pt eval
[2023-08-04 07:54] LABS: Appearance,Urine CLEAR (Clear); Blood, Urine Negative (Negative); Color,Urine YELLOW (Yellow); Glucose,Urine (UA) Negative (Negative); Ketones,Urine TRACE (Negative); Leukocyte Esterase,Urine 2+ (Negative); Nitrate,Urine Negative (Negative); Protein,Urine 2+ (Negative); Specific Gravity, Urine 1.025 (1.005-1.030)
[2023-08-04 08:07] LABS: Bilirubin,Urine 2+ (Negative)
[2023-08-04] MEDS: 0.9 % SODIUM CHLORIDE 1000ML 1,000 ML 999 ML IV (08:10)
[2023-08-04 08:11] LABS: Bacteria,Urine 1+ /lpf; Squamous Epithelial Cell,Urine 20-50 #/hpf (0-5)
[2023-08-04] MEDS: METOCLOPRAMIDE HCL 10MG/2ML VIAL 10 MG IVP (08:12)
[2023-08-04 08:27] LABS: Chloride 100 mmol/L (98-107); Potassium 3.8 mmoL/L (3.5-5.1); Sodium 137 mmol/L (136-145)
[2023-08-04 08:30] LABS: Alanine Aminotransferase 20 U/L (12-78); Albumin Level 4.7 g/dl (3.5-5.0); Albumin/Globulin Ratio 1.3 (1.1-1.8); Alkaline Phosphatase 64 U/L (38-126); Anion Gap 14.8 mEq/L (5-15); Aspartate Amino Transferase 27 U/L (14-36); Blood Urea Nitrogen 8 mg/dl (7-17); Carbon Dioxide 26 mmol/L (22.0-30.0); Creatinine Clearance Estimated 157 mL/min (50-200); Estimated Glomerular Filt Rate 104 ml/min (>60); GFR (African American) 125 ML/MIN (>60); Globulin 3.6 g/dL (1.3-3.2); Total Protein,Serum 8.3 g/dl (6.3-8.2)
[2023-08-04 08:31] LABS: Calcium 9.8 mg/dl (8.4-10.2); Glucose 86 mg/dl (74-100)
[2023-08-04 08:35] LABS: Basophils # 0.1 K/mm3 (0-0.2); Basophils % 0.7 % (0.1-2.0); Eosinophils % 0.3 % (0.1-12.0); Hematocrit 42.1 % (37.0-47.0); Hemoglobin 14.3 g/dL (12.2-16.2); Lymphocytes # 2.3 K/mm3 (0.7-4.5); Lymphocytes % 22.6 % (10-50); Mean Corpuscular HGB Conc 33.9 g/dL (31.8-35.4); Mean Corpuscular Volume 82.5 fl (81-99); Mean Platelet Volume 8.3 fl (7.4-10.4); Monocytes # 0.5 K/mm3 (0.1-1.0); Monocytes % 4.8 % (1.7-9.3); Neutrophils # 7.4 K/mm3 (1.8-7.8); Neutrophils % 71.6 % (37.0-80.0); Platelet Count 240 K/mm3 (142-424); Red Cell Distribution Width 13.4 % (11.5-17.5); White Blood Count 10.3 K/mm3 (4.8-10.8)
[2023-08-04 08:45] VITALS: BP 114/60; PULSE 67; RESP 20; O2SAT 99
--- NOTE | 2023-08-04 08:46 | PC.NURSE ---
Pt ambulatory to bathroom, and provided with drink and crackers. No other needs voiced. Call light within reach.
[2023-08-04 09:00] VITALS: BP 123/61; PULSE 70; O2SAT 100
--- NOTE | 2023-08-04 09:15 | HMH.EDGENADL ---
Discharge Plan Disposition Patient Disposition: Home, Self-Care Prescriptions Prescriptions: New cephalexin 500 mg capsule 1,000 mg PO BID 7 Days Qty: 28 0RF metoclopramide HCl [Reglan] 10 mg tablet 10 mg PO Q6H PRN (Reason: nausea and vomiting) Qty: 20 1RF No Action L norgest/e.estradiol-e.estrad 0.15 mg-30 mcg (84)/10 mcg (7) tablets,dose pack,3 month 1 tab PO 91 Days loratadine 10 mg tablet 10 mg PO 30 Days Patient Comments: take 1 tablet by mouth once daily fluticasone propionate 50 mcg/actuation spray,suspension INTRANASAL Qty: 16 hydroxyzine pamoate 25 mg capsule PO Qty: 100 Patient Comments: TAKE 1 CAPSULE BY MOUTH FOUR TIMES DAILY NEEDED MAY CAUSE DROWSINESS aripiprazole 15 mg tablet PO Qty: 30 mupirocin 22 GM ointment 1 applicatio TP TID 7 Days Qty: 1 0RF ondansetron 4 MG tablet,disintegrating 4 mg PO TIDP PRN (Reason: Nausea And Vomiting) Qty: 20 0RF albuterol sulfate [Proventil HFA] 90 mcg/actuation HFA aerosol inhaler 1 - 2 inh inhalation Q6H PRN (Reason: shortness of breath or wheezing) Qty: 8.5 0RF ibuprofen 600 mg tablet 600 mg PO Q6HP PRN (Reason: Moderate Pain) Qty: 20 0RF methocarbamol 500 mg tablet 500 mg PO TID Qty: 15 0RF Referrals Follow up/Referrals: Ravi Askew MD [Primary Care Provider] - See instructions Niru Ochoa DO [Staff Physician] - See instructions Clinical Impressions Clinical Impression: UTI (urinary tract infection), Instructions Patient Instructions: DI for Acute Abdominal Pain Discharge ED Provider: Ayaz Faith General Adult HPI General Chief complaint: Abdominal Pain Stated complaint: vomiting, abd pain took a postitive preg test Time Seen by Provider: 08/04/23 07:46 Mode of Arrival: Ambulatory Source of Information: Patient Limitations: No Limitations Description of Symptoms (Recalled from ER Triage Doc. by RN): Pateint reports she has a postive test 1 week ago. Patient started vomiting and cramping x2 days ago. This is her second . Patient states her mensutral cycle is never regular and she does not know her last cycle. Patient reports she has a lot of GI issues reports colon is enlarged and has a GI doctor that follows her and reports this would be a high risk . History of Present Illness HPI narrative: 22-year-old female who with gastroparesis presenting with abdominal pain, vomiting, positive test. Patient states that she has been having the symptoms for a few days. Took a test about a week ago. States that my colon is 5 times bigger than it should be. And I have no idea how it is going to be room for a baby in there. She has been vomiting what looks like undigested food for the last couple of days, but denies diarrhea, or blood in vomit or stool. No urinary symptoms. Abdominal pain is a crampy, lower abdomen, comes and goes, does not radiate. Not associated with abnormal vaginal discharge or bleeding. Related Data Home Medications Medication Instructions Recorded Confirmed L norgest/E estradiol-E estrad 1 tab PO 91 days 02/03/18 03/04/19 0.15 mg-30 mcg (84)/10 mcg(7) tabs,3mos loratadine 10 mg tablet 10 mg PO 30 days 02/03/18 03/04/19 aripiprazole 15 mg tablet PO #30 tabs 03/04/19 03/04/19 fluticasone propionate 50 intranasal #16 grams 03/04/19 03/04/19 mcg/actuation nasal spray,suspension hydroxyzine pamoate 25 mg capsule PO #100 caps 03/04/19 03/04/19 Previous Rx's Medication Instructions Recorded mupirocin 2 % topical ointment 1 applicatio TP TID 7 days #1 tube 01/22/21 ondansetron 4 mg disintegrating 4 mg PO TIDP PRN Nausea And 12/01/21 tablet Vomiting #20 tabs albuterol sulfate 90 mcg/actuation 1 - 2 inh inhalation Q6H PRN 03/28/23 aerosol inhaler (Proventil HFA) shortness of breath or wheezing #8.5 grams ibuprofen 600 mg tablet 600 mg PO Q6HP PRN Moderate Pain 03/28/23 #20 tabs methocarbamol 500 mg tablet 500 mg PO TID #15 tabs 03/28/23 cephalexin 500 mg capsule 1,000 mg PO BID 7 days #28 caps 08/04/23 metoclopramide HCl 10 mg tablet 10 mg PO Q6H PRN nausea and 08/04/23 (Reglan) vomiting #20 tabs Allergies Allergy/AdvReac Type Severity Reaction Status Date / Time No Known Allergies Allergy Verified 07/16/23 13:15 [facility] Disclaimer: The information contained in this section may have been updated after the patient was seen, as this information can be updated by other users. Social History Smoking Status: Never smoker alcohol intake: never substance use type: denies use current occupational status: employed Travel in the last 8 weeks: None household members: family housing: house ROS Obtained: Yes All systems reviewed & no additional complaints except as documented Physical Exam General General appearance: alert and in no apparent distress Head Head exam: atraumatic and normocephalic Eye Eye exam: Present normal appearance, PERRL and EOMI ENT ENT exam: Present mucous membranes moist Neck Neck exam: Present normal inspection, full ROM and trachea midline Respiratory Respiratory exam: Present normal lung sounds bilaterally; Absent respiratory distress, wheezes, stridor, accessory muscle use or prolonged expiratory phase Cardiovascular Cardiovascular exam: Present regular rate and normal rhythm Abdominal Exam Abdominal exam: Present soft; Absent distention, tenderness, guarding, rebound or rigidity Extremities Exam Extremities exam: Absent edema Neurological Exam Neurological exam: Present alert, oriented X3, CN II-XII intact and normal gait; Absent motor sensory deficit Skin Skin exam: Present warm and dry; Absent diaphoresis or erythema Medical Decision Making Medical Records Medical records reviewed: Yes I reviewed the patient's medical records. Vivek Inquiry Pt receiving controlled substance: No Vivek was queried for this patient: No Vital Signs: 08/04/23 07:43 08/04/23 08:45 08/04/23 09:00 Temperature 98.2 F Temperature Source Oral Pulse Rate 67 70 Pulse Rate [Right Brachial] 112 H Respiratory Rate 20 20 Blood Pressure 114/60 123/61 Blood Pressure [Right Arm] 111/77 Blood Pressure Mean 79 Blood Pressure Mean [Right Arm] 88 Blood Pressure Source [Right Arm] Automatic Cuff Blood Pressure Position [Right Arm] Sitting 02 Sat by Pulse Oximetry 98 99 100 Oxygen Delivery Method Room Air 08/04/23 09:30 Temperature Temperature Source Pulse Rate 54 L Pulse Rate [Right Brachial] Respiratory Rate Blood Pressure 109/51 L Blood Pressure [Right Arm] Blood Pressure Mean Blood Pressure Mean [Right Arm] Blood Pressure Source [Right Arm] Blood Pressure Position [Right Arm] 02 Sat by Pulse Oximetry 99 Oxygen Delivery Method Room Air Lab Data Lab Results 08/04/23 07:46: Urine Color Yellow, Urine Appearance Clear, Urine pH 7.0, Ur Specific [place] 1.025, Urine Protein 2+, Urine Glucose (UA) Negative, Urine Ketones Trace, Urine Blood Negative, Urine Nitrate Negative, Urine Bilirubin 2+ A, Urine Urobilinogen 4.0, Ur Leukocyte Esterase 2+ A, Urine RBC None, Urine WBC 10-20, Ur Squamous Epith Cells 20-50, Urine Bacteria 1+ 08/04/23 08:00: WBC 10.3, RBC 5.10, Hgb 14.3, Hct 42.1, MCV 82.5, MCH 28.0, MCHC 33.9, RDW 13.4, Plt Count 240, MPV 8.3, Neut % (Auto) 71.6, Lymph % (Auto) 22.6, [place] % (Auto) 4.8, Eos % (Auto) 0.3, Baso % (Auto) 0.7, Neut # (Auto) 7.4, Lymph # (Auto) 2.3, [place] # (Auto) 0.5, Eos # (Auto) 0.0, Baso # (Auto) 0.1, Sodium 137, Potassium 3.8, Chloride 100, Carbon Dioxide 26, Anion Gap 14.8, BUN 8, Creatinine 0.70, Estimated Creat Clear 157, Estimated GFR 104, Est GFR ( Amer) 125, Glucose 86, Calcium 9.8, Total Bilirubin 1.0, AST 27, ALT 20, Alkaline Phosphatase 64, Total Protein 8.3 H, Albumin 4.7, Globulin 3.6 H, Albumin/Globulin Ratio 1.3, Lipase 36, HCG, Quant [id number] H 08/04/23 08:00 08/04/23 08:00 Orders (Tests/Meds): ED MEDICATIONS Discontinued Medications Generic Name Dose Route Start Last Admin Trade Name Freq PRN Reason Stop Dose Admin Sodium Chloride 1,000 mls @ 999 mls/hr 08/04/23 07:47 08/04/23 08:10 Sod Chlor 0.9% 1000ml Bag IV 08/04/23 08:47 999 mls/hr .Q1H1M ONE Administration Metoclopramide HCl 10 mg 08/04/23 07:54 08/04/23 08:12 Metoclopramide Hcl 10mg/2ml Vial IVP 08/04/23 07:55 10 mg ONCE ONE Administration Ondansetron HCl 4 mg 08/04/23 07:47 08/04/23 08:12 Ondansetron 4mg/2ml Vial IV 08/04/23 07:48 Not Given ONCE ONE ORDERS Category Date Time Status POCUS Point of Care (ER Only) Stat Exams 08/04/23 09:43 Ordered CBC w/Auto Diff [Complete Blood Count Auto Diff] Stat Lab 08/04/23 08:00 Completed CMP [Comprehensive Metabolic Panel] Stat Lab 08/04/23 08:00 Completed HCG,Quantitative Stat Lab 08/04/23 08:00 Completed Lipase Stat Lab 08/04/23 08:00 Completed UA [Urinalysis and Microscopic] Stat Lab 08/04/23 07:46 Completed Urine Culture Stat Micro 08/04/23 07:46 Received Medical Decision Narrative: 22-year-old female who with gastroparesis presenting with abdominal pain, vomiting, positive test. Patient states that she has been having the symptoms for a few days. Took a test about a week ago. States that my colon is 5 times bigger than it should be. And I have no idea how it is going to be room for a baby in there. She has been vomiting what looks like undigested food for the last couple of days, but denies diarrhea, or blood in vomit or stool. No urinary symptoms. Abdominal pain is a crampy, lower abdomen, comes and goes, does not radiate. Not associated with abnormal vaginal discharge or bleeding. History was obtained via conversation with patient. On arrival, patient hemodynamically stable, alert, [oriented x4, ] appropriate, GCS 15, moving all extremities spontaneously, pupils equal and reactive to light. Full physical exam performed and significant for well-appearing woman in no acute distress. Abdomen soft, nontender on my exam. Patient normotensive, nontachycardic, well-appearing. Differential includes hyperemesis gravidarum, gastroparesis, pancreatitis, , ectopic , cholecystitis, appendicitis, urinary tract infection, stone, among others. Patient was given Reglan, fluids for symptomatic management and correction of underlying abnormalities. Workup independently interpreted and significant for on UA. Nonactionable CBC. Beta-hCG quant 127,000. Bedside ultrasound with intrauterine with cardiac activity. On reevaluation, patient stating she is feeling much better. Given patient presentation, workup, history, this most likely represents intrauterine , UTI. Because patient at baseline without signs or symptoms of clinical decompensation, deemed appropriate for discharge. Results were relayed to patient who voiced understanding and were agreeable to outpatient management and follow up. At the time of discharge the patient was hemodynamically stable, tolerating PO, and mobilizing appropriately. Procedures Limited Ultrasound Indication:: Limited OB ultrasound Indication: Vomiting, abdominal pain, positive test Identified structures: Uterus, pouch of Jhon Findings: Uterus: Definitive IUP joseph FHR: Cardiac flicker [place]: Absent Impression: -IUP: Present - heart rate: Present, cardiac flicker -Ectopic : Absent -Free fluid: Absent Images was to permanent archive The study was technically adequate [facility] Transabdominal: [id number] This study was performed by me, and I personally interpreted all images/videos. Based on my clinical judgement, these images were adequate and did not necessitate further imaging. Critical Care Critical Care Time Critical Care Time: No
[2023-08-04 09:24] LABS: HCG,Quantitative 127690 mIU/ml (0-5.42)
[2023-08-04 09:30] VITALS: BP 109/51; PULSE 54; O2SAT 99
--- NOTE | 2023-08-04 09:34 | PC.NURSE ---
Rounded on pt. No needs or complaints voiced. Call light within reach.
[2023-08-04 09:45] LABS: Lipase 36 U/L (23-300)
--- NOTE | 2023-08-04 10:05 | PC.NURSE ---
Dr. Faith at [facility] for [facility]
[2023-08-04 10:35] VITALS: BP 97/52; PULSE 60; RESP 18; TEMP 37.1; O2SAT 100
--- NOTE | 2023-08-07 09:00 | PC.NURSE ---
urine culture shows mixed urogenital mikael, Dc on cephalexin, NTD at this time per
== END 2023-08-04 10:36 | disposition home or self-care (01) ==
PROVIDERS: Emergency Provider Emergency Medicine; PCP Internal Medicine Adolescent Medicine
DX: O23.41 Unspecified infection of urinary tract in pregnancy, first trimester (principal); Z3A.00 Weeks of gestation of pregnancy not specified
CPT/HCPCS: 80053; 81001; 83690; 84702; 85025; 87086; 96361; 96374; 99285

== ENCOUNTER 2023-08-06 05:51 | Emergency (ER) | payer OTHER, SELFPAY ==
[2023-08-06] VITALS (11 sets, daily range): BP systolic 76–139; BP diastolic 34–100; PULSE 48–93; RESP 18–20; TEMP 36.7–36.8; O2SAT 97–100; BMI 25.8; BMI 28.0
--- NOTE | 2023-08-06 06:14 | ED_ITS ---
Discharge Plan Disposition Patient Disposition: Home, Self-Care Prescriptions Prescriptions: New promethazine 12.5 mg suppository 12.5 mg DC TID PRN (Reason: nausea and vomiting) Qty: 12 0RF Rx Instructions: do not give 3rd daily dose after evening meal or within 4hr before bed ondansetron 4 mg tablet,disintegrating 4 mg PO Q6H PRN (Reason: nausea and vomiting) 5 Days Qty: 20 0RF No Action L norgest/e.estradiol-e.estrad 0.15 mg-30 mcg (84)/10 mcg (7) tablets,dose pac k,3 month 1 tab PO 91 Days loratadine 10 mg tablet 10 mg PO 30 Days Patient Comments: take 1 tablet by mouth once daily fluticasone propionate 50 mcg/actuation spray,suspension INTRANASAL Qty: 16 hydroxyzine pamoate 25 mg capsule PO Qty: 100 Patient Comments: TAKE 1 CAPSULE BY MOUTH FOUR TIMES DAILY NEEDED MAY CAUSE DROWSINESS aripiprazole 15 mg tablet PO Qty: 30 mupirocin 22 GM ointment 1 applicatio TP TID 7 Days Qty: 1 0RF ondansetron 4 MG tablet,disintegrating 4 mg PO TIDP PRN (Reason: Nausea And Vomiting) Qty: 20 0RF albuterol sulfate [Proventil HFA] 90 mcg/actuation HFA aerosol inhaler 1 - 2 inh inhalation Q6H PRN (Reason: shortness of breath or wheezing) Qty: 8.5 0RF ibuprofen 600 mg tablet 600 mg PO Q6HP PRN (Reason: Moderate Pain) Qty: 20 0RF methocarbamol 500 mg tablet 500 mg PO TID Qty: 15 0RF cephalexin 500 mg capsule 1,000 mg PO BID 7 Days Qty: 28 0RF metoclopramide HCl [Reglan] 10 mg tablet 10 mg PO Q6H PRN (Reason: nausea and vomiting) Qty: 20 1RF Referrals Follow up/Referrals: Niru Ochoa DO [Staff Physician] - See instructions Ravi Askew MD [Primary Care Provider] - See instructions Activity Restrictions/Add. Instructions Additional Instructions/Restrictions: Please follow-up with Dr. Ochoa as soon as possible shortly I recommend that you stop smoking marijuana. Lastly return the emergency department with any ongoing weight loss or refractory nausea and vomiting. Clinical Impressions Clinical Impression: Hyperemesis gravidarum, Twin gestation in first trimester, Cannabinoid hyperemesis syndrome Instructions Patient Instructions: DI for Diarrhea and Traveler's Diarrhea -- Adult, DI for Diarrhea and Traveler's Diarrhea -- Child, DI for Nausea -- Adult, DI for Nausea -- Child Discharge ED Provider: Munir Arzola General Adult HPI <Munir Arzola MD - Last Filed: 08/06/23 06:59> General Chief complaint: Nausea/Vomiting/Diarrhea Stated complaint: 3-4 weeks with vomiting Time Seen by Provider: 08/06/23 06:00 Mode of Arrival: Ambulatory Source of Information: Patient Limitations: No Limitations Description of Symptoms (Recalled from ER Triage Doc. by RN): Pt ambulatory to ED with c/o N/V, abd pain, starting approx 12 hrs ago. Pt reports being 3-4 weeks . Pt states she has vomited 26 gallons of mostly water. Abd pain in pelvic region. Denies vaginal bleeding/discharge. History of Present Illness HPI narrative: 22-year-old female, G2, P1, history of chronic daily marijuana usage, reported history of gastroparesis, history of hyperemesis gravidarum during first presents with worsening nausea vomiting. Reports that she has been vomiting nonstop for days and weeks. She reports that she normally vomits every day but symptoms are much worse now. She reports she has been losing weight at home for the last year and a half. Patient reports that she is continuing to drink so that she has something to throw up. She denies any vaginal bleeding or discharge. She was seen here couple of days ago for similar symptoms and was diagnosed with UTI. She reports that she has been taking Zofran and Reglan at home without improvement in symptoms. She reports that she tried Unisom and B6 with her prior and it did not work. Regarding her current gestational age, she reports that she is not sure because she does not know what her last menstrual period is because they are very irregular. Related Data Home Medications Medication Instructions Recorded Confirmed L norgest/E estradiol-E estrad 1 tab PO 91 days 02/03/18 03/04/19 0.15 mg-30 mcg (84)/10 mcg(7) tabs,3mos loratadine 10 mg tablet 10 mg PO 30 days 02/03/18 03/04/19 aripiprazole 15 mg tablet PO #30 tabs 03/04/19 03/04/19 fluticasone propionate 50 intranasal #16 grams 03/04/19 03/04/19 mcg/actuation nasal spray,suspension hydroxyzine pamoate 25 mg capsule PO #100 caps 03/04/19 03/04/19 Previous Rx's Medication Instructions Recorded mupirocin 2 % topical ointment 1 applicatio TP TID 7 days #1 tube 01/22/21 ondansetron 4 mg disintegrating 4 mg PO TIDP PRN Nausea And 12/01/21 tablet Vomiting #20 tabs albuterol sulfate 90 mcg/actuation 1 - 2 inh inhalation Q6H PRN 03/28/23 aerosol inhaler (Proventil HFA) shortness of breath or wheezing #8.5 grams ibuprofen 600 mg tablet 600 mg PO Q6HP PRN Moderate Pain 03/28/23 #20 tabs methocarbamol 500 mg tablet 500 mg PO TID #15 tabs 03/28/23 cephalexin 500 mg capsule 1,000 mg PO BID 7 days #28 caps 08/04/23 metoclopramide HCl 10 mg tablet 10 mg PO Q6H PRN nausea and 08/04/23 (Reglan) vomiting #20 tabs ondansetron 4 mg disintegrating 4 mg PO Q6H PRN nausea and 08/06/23 tablet vomiting 5 days #20 tabs promethazine 12.5 mg rectal 12.5 mg DC TID PRN nausea and 08/06/23 suppository vomiting #12 ea Allergies Allergy/AdvReac Type Severity Reaction Status Date / Time No Known Allergies Allergy Verified 07/16/23 13:15 PFS <Munir Arzola MD - Last Filed: 08/06/23 06:59> PFS Disclaimer: The information contained in this section may have been updated after the patient was seen, as this information can be updated by other users. Social History Smoking Status: Unknown if ever smoked alcohol intake: never substance use type: denies use current occupational status: employed Travel in the last 8 weeks: None household members: family housing: house <Munir Arzola MD - Last Filed: 01/11/24 06:59> ROS Obtained: Yes All systems reviewed & no additional complaints except as documented Physical Exam <Munir Arzola MD - Last Filed: 08/06/23 06:59> General General appearance: alert and anxious Head Head exam: atraumatic and normocephalic Eye Eye exam: Present normal appearance, PERRL and EOMI ENT ENT exam: Present normal oropharynx and normal external ear exam Neck Neck exam: Present normal inspection and full ROM Chest Chest inspection: Present normal inspection and symmetric chest wall rise; Absent tenderness Respiratory Respiratory exam: Present normal lung sounds bilaterally; Absent respiratory distress Cardiovascular Cardiovascular exam: Present regular rate and normal rhythm Abdominal Exam Abdominal exam: Present soft; Absent distention, tenderness or guarding Extremities Exam Extremities exam: Present normal inspection; Absent edema or joint swelling Back Exam Back exam: Present normal inspection; Absent tenderness Neurological Exam Neurological exam: Present alert and oriented X3; Absent motor sensory deficit Psychiatric Psychiatric exam: Present normal affect and normal mood Skin Skin exam: Present warm, dry and normal color Lymphatic Lymphatic Findings: no adenopathy Medical Decision Making <Munir Arzola MD - Last Filed: 08/06/23 06:59> Medical Records Medical records reviewed: Yes I reviewed the patient's medical records. Vivek Inquiry Pt receiving controlled substance: No Vivek was queried for this patient: No Vital Signs: 08/06/23 06:07 08/06/23 06:30 08/06/23 06:46 Temperature 98.3 F Temperature Source Oral Pulse Rate 68 60 Pulse Rate [Left Radial] 93 H Respiratory Rate 20 Blood Pressure 118/100 H 99/39 L Blood Pressure [Right Arm] 131/77 Blood Pressure Mean [Right Arm] 95 Blood Pressure Source [Right Arm] Automatic Cuff Blood Pressure Position [Right Arm] Sitting 02 Sat by Pulse Oximetry 97 100 100 Oxygen Delivery Method Room Air Room Air Room Air 08/06/23 07:00 08/06/23 07:21 08/06/23 07:24 Temperature Temperature Source Pulse Rate 58 L 50 L 48 L Pulse Rate [Left Radial] Respiratory Rate Blood Pressure 109/53 L 105/34 L 90/42 L Blood Pressure [Right Arm] Blood Pressure Mean [Right Arm] Blood Pressure Source [Right Arm] Blood Pressure Position [Right Arm] 02 Sat by Pulse Oximetry 99 100 100 Oxygen Delivery Method Room Air Room Air Room Air 08/06/23 07:26 08/06/23 07:41 08/06/23 08:00 Temperature Temperature Source Pulse Rate 60 48 L 53 L Pulse Rate [Left Radial] Respiratory Rate Blood Pressure 76/43 L 110/53 L 110/50 L Blood Pressure [Right Arm] Blood Pressure Mean [Right Arm] Blood Pressure Source [Right Arm] Blood Pressure Position [Right Arm] 02 Sat by Pulse Oximetry 100 100 100 Oxygen Delivery Method Room Air Room Air Lab Data Lab results reviewed: Yes I reviewed the patient's lab results. Lab Results 08/06/23 06:19: WBC 10.3, RBC 5.41 H, Hgb 15.1, Hct 45.4, MCV 83.9, MCH 27.8, MCHC 33.2, RDW 13.6, Plt Count 237, MPV 8.3, Neut % (Auto) 71.2, Lymph % (Auto) 22.5, Blaine % (Auto) 5.0, Eos % (Auto) 0.5, Baso % (Auto) 0.7, Neut # (Auto) 7.3, Lymph # (Auto) 2.3, Blaine # (Auto) 0.5, Eos # (Auto) 0.1, Baso # (Auto) 0.1, Sodium 137, Potassium 4.3, Chloride 102, Carbon Dioxide 26, Anion Gap 13.3, BUN 7, Creatinine 0.70, Estimated Creat Clear 152, Estimated GFR 104, Est GFR ( Amer) 125, Glucose 96, Lactate 1.4, Calcium 9.3, Magnesium 1.6, Total Bilirubin 0.6, AST 27, ALT 23, Alkaline Phosphatase 63, Total Protein 8.3 H, Albumin 4.7, Globulin 3.6 H, Albumin/Globulin Ratio 1.3, Lipase 40 08/06/23 07:19: SARS-CoV-2 (PCR) Not detected, Influenza A Untype (PCR) Not detected, Influenza Type B (PCR) Not detected 08/06/23 06:19 08/06/23 06:19 Orders (Tests/Meds): ED MEDICATIONS Discontinued Medications Generic Name Dose Route Start Last Admin Trade Name Freq PRN Reason Stop Dose Admin Diphenhydramine HCl 25 mg 08/06/23 06:13 08/06/23 06:28 Diphenhydramine 50mg/Ml Vial IV 08/06/23 06:14 25 mg ONCE ONE Administration Lactated Ringer's 1,000 mls @ 999 mls/hr 08/06/23 06:15 08/06/23 08:14 Lactated Ringer's 1000 Ml Bag IV 08/06/23 08:15 999 mls/hr .Q1H1M ORALIA Administration Metoclopramide HCl 10 mg 08/06/23 06:12 08/06/23 06:28 Metoclopramide Hcl 10mg/2ml Vial IVP 08/06/23 06:13 10 mg ONCE ONE Administration Ondansetron HCl 4 mg 08/06/23 06:12 08/06/23 06:28 Ondansetron 4mg/2ml Vial IV 08/06/23 06:13 4 mg ONCE ONE Administration ORDERS Category Date Time Status POCUS Point of Care (ER Only) Stat Exams 08/06/23 08:19 Ordered Beta HCG, Quant [HCG,Quantitative] Stat Lab 08/06/23 08:33 Ordered CBC w/Auto Diff [Complete Blood Count Auto Diff] Stat Lab 08/06/23 06:19 Completed CMP [Comprehensive Metabolic Panel] Stat Lab 08/06/23 06:19 Completed Lactic Acid Stat Lab 08/06/23 06:19 Completed Lipase Stat Lab 08/06/23 06:19 Completed Magnesium Stat Lab 08/06/23 06:19 Completed Rapid PCR Covid and Flu A/B Stat Lab 08/06/23 07:19 Completed US OB transvaginal Stat Ultrasound 08/06/23 08:32 Taken Medical Decision Narrative: 22-year-old female, G2, P1 with reported history of gastroparesis, hyperemesis gravidarum with first , chronic daily marijuana use, presents with intractable nausea and vomiting at home.. History was obtained via conversation with patient, chart review. On arrival, patient is afebrile, hemodynamically stable, uncomfortable appearing, intermittently crying, moving all extremities spontaneously. Full physical exam performed and significant for no significant abdominal tenderness. I reviewed the patient's most recent visit, they report that she had a intrauterine with cardiac activity. Her beta at that time was 126,000. Differential includes but is not limited to hyperemesis gravidarum, nausea vomiting , gastroenteritis, gastroparesis, pancreatitis, dehydration, cannabis hyperemesis syndrome. Patient was given IV Reglan, Benadryl, Zofran, 2 L fluid bolus for symptomatic management and correction of underlying abnormalities. Workup initiated including CBC CMP lipase mag. At this time care handed off to oncoming physician. <Oh Zhang MD - Last Filed: 08/06/23 09:37> Vital Signs: 08/06/23 06:07 08/06/23 06:30 08/06/23 06:46 Temperature 98.3 F Temperature Source Oral Pulse Rate 68 60 Pulse Rate [Left Radial] 93 H Respiratory Rate 20 Blood Pressure 118/100 H 99/39 L Blood Pressure [Right Arm] 131/77 Blood Pressure Mean [Right Arm] 95 Blood Pressure Source [Right Arm] Automatic Cuff Blood Pressure Position [Right Arm] Sitting 02 Sat by Pulse Oximetry 97 100 100 Oxygen Delivery Method Room Air Room Air Room Air 08/06/23 07:00 08/06/23 07:21 08/06/23 07:24 Temperature Temperature Source Pulse Rate 58 L 50 L 48 L Pulse Rate [Left Radial] Respiratory Rate Blood Pressure 109/53 L 105/34 L 90/42 L Blood Pressure [Right Arm] Blood Pressure Mean [Right Arm] Blood Pressure Source [Right Arm] Blood Pressure Position [Right Arm] 02 Sat by Pulse Oximetry 99 100 100 Oxygen Delivery Method Room Air Room Air Room Air 08/06/23 07:26 08/06/23 07:41 08/06/23 08:00 Temperature Temperature Source Pulse Rate 60 48 L 53 L Pulse Rate [Left Radial] Respiratory Rate Blood Pressure 76/43 L 110/53 L 110/50 L Blood Pressure [Right Arm] Blood Pressure Mean [Right Arm] Blood Pressure Source [Right Arm] Blood Pressure Position [Right Arm] 02 Sat by Pulse Oximetry 100 100 100 Oxygen Delivery Method Room Air Room Air Lab Data Lab results reviewed: Yes I reviewed the patient's lab results. Lab Results 08/06/23 06:19: WBC 10.3, RBC 5.41 H, Hgb 15.1, Hct 45.4, MCV 83.9, MCH 27.8, MCHC 33.2, RDW 13.6, Plt Count 237, MPV 8.3, Neut % (Auto) 71.2, Lymph % (Auto) 22.5, Blaine % (Auto) 5.0, Eos % (Auto) 0.5, Baso % (Auto) 0.7, Neut # (Auto) 7.3, Lymph # (Auto) 2.3, Blaine # (Auto) 0.5, Eos # (Auto) 0.1, Baso # (Auto) 0.1, Sodium 137, Potassium 4.3, Chloride 102, Carbon Dioxide 26, Anion Gap 13.3, BUN 7, Creatinine 0.70, Estimated Creat Clear 152, Estimated GFR 104, Est GFR ( Amer) 125, Glucose 96, Lactate 1.4, Calcium 9.3, Magnesium 1.6, Total Bilirubin 0.6, AST 27, ALT 23, Alkaline Phosphatase 63, Total Protein 8.3 H, Albumin 4.7, Globulin 3.6 H, Albumin/Globulin Ratio 1.3, Lipase 40 08/06/23 07:19: SARS-CoV-2 (PCR) Not detected, Influenza A Untype (PCR) Not detected, Influenza Type B (PCR) Not detected Orders (Tests/Meds): ED MEDICATIONS Discontinued Medications Generic Name Dose Route Start Last Admin Trade Name Freq PRN Reason Stop Dose Admin Diphenhydramine HCl 25 mg 08/06/23 06:13 08/06/23 06:28 Diphenhydramine 50mg/Ml Vial IV 08/06/23 06:14 25 mg ONCE ONE Administration Lactated Ringer's 1,000 mls @ 999 mls/hr 08/06/23 06:15 08/06/23 08:14 Lactated Ringer's 1000 Ml Bag IV 08/06/23 08:15 999 mls/hr .Q1H1M ORALIA Administration Metoclopramide HCl 10 mg 08/06/23 06:12 08/06/23 06:28 Metoclopramide Hcl 10mg/2ml Vial IVP 08/06/23 06:13 10 mg ONCE ONE Administration Ondansetron HCl 4 mg 08/06/23 06:12 08/06/23 06:28 Ondansetron 4mg/2ml Vial IV 08/06/23 06:13 4 mg ONCE ONE Administration ORDERS Category Date Time Status POCUS Point of Care (ER Only) Stat Exams 08/06/23 08:19 Ordered Beta HCG, Quant [HCG,Quantitative] Stat Lab 08/06/23 08:33 Ordered CBC w/Auto Diff [Complete Blood Count Auto Diff] Stat Lab 08/06/23 06:19 Completed CMP [Comprehensive Metabolic Panel] Stat Lab 08/06/23 06:19 Completed Lactic Acid Stat Lab 08/06/23 06:19 Completed Lipase Stat Lab 08/06/23 06:19 Completed Magnesium Stat Lab 08/06/23 06:19 Completed Rapid PCR Covid and Flu A/B Stat Lab 08/06/23 07:19 Completed US OB transvaginal Stat Ultrasound 08/06/23 08:32 Taken Medical Decision Narrative: 22-year-old female, G2, P1 with reported history of gastroparesis, hyperemesis gravidarum with first , chronic daily marijuana use, presents with intractable nausea and vomiting at home.. History was obtained via conversation with patient, chart review. On arrival, patient is afebrile, hemodynamically stable, uncomfortable appearing, intermittently crying, moving all extremities spontaneously. Full physical exam performed and significant for no significant abdominal tenderness. I reviewed the patient's most recent visit, they report that she had a intrauterine with cardiac activity. Her beta at that time was 126,000. Differential includes but is not limited to hyperemesis gravidarum, nausea vomiting , gastroenteritis, gastroparesis, pancreatitis, dehydration, cannabis hyperemesis syndrome. Patient was given IV Reglan, Benadryl, Zofran, 2 L fluid bolus for symptomatic management and correction of underlying abnormalities. Workup initiated including CBC CMP lipase mag. At this time care handed off to oncoming physician. Reassessment 8:[address] hZang I took over from Dr. Arzola. We got an accurate measurement of the patient's weight since she is only lost about 6 pounds in the last few weeks nonetheless she is losing weight in the setting of nausea vomiting in . Has a history of hyperemesis gravidarum and extensive discussion with her as well about cyclical vomiting associated with cannabinol hyperemesis and advised that she stop smoking chronically. She is feeling significantly better after the medications given to her from Dr. Arzola. However I did a limited bedside ultrasound as she was concerned about this and noted that there were 2 gestational sacs concerning for twin gestations could not definitively see pole or yolk sac and ordered transvaginal ultrasound for further evaluation. Reassessment 937 patient feeling much better tolerating p.o. transvaginal ultrasound confirmed twin intrauterine pregnancies. She has been advised to follow-up close with her primary care doctor and her [employer] doctor and return to the emergency department any ongoing nausea and vomiting. A prescription for Zofran was sent to her pharmacy in addition to rectal Phenergan. I am worried about the weight loss that she has had but she would like to go home would not like to be admitted for IV fluids and she will follow-up with her [employer] doctor Dr. Niru Ochoa. Procedures <Munir Arzola MD - Last Filed: 08/06/23 06:59> Risk/Benefits of Procedure(s) Were Explained: Yes <Oh Zhang MD - Last Filed: 08/06/23 09:37> Miscellaneous Procedure Procedure Performed: Limited OB ultrasound Indication: Nausea and vomiting in Identified structures: [-Uterus -Left adnexa -Right adnexa -Pouch of Jhon] Findings: Uterus: 2 gestational sacs noted intrauterine with a double decidual sign but no obvious pole or yolk sac FHR: Unable to be visualized Right adnexa: No free fluid Left adnexa: No free fluid Cul de sac: Absent Impression: 2 gestational sacs without definitive pole or yolk sacs concerning for twin gestations versus blighted ovum etc. Images were saved to permanent archive The study was technically adequate CPT Transabdominal: 48111-80 This study was performed by me, and I personally interpreted all images/videos. Based on my clinical judgement, these images were adequate and did not necessitate further imaging. Critical Care <Munir Arzola MD - Last Filed: 08/06/23 06:59> Critical Care Time Critical Care Time: No
[2023-08-06] MEDS: METOCLOPRAMIDE HCL 10MG/2ML VIAL 10 MG IVP (06:28)
[2023-08-06] MEDS: diphenhydrAMINE 50MG/ML VIAL 25 MG IV (06:28)
[2023-08-06] MEDS: ONDANSETRON 4MG/2ML VIAL 4 MG IV (06:28)
[2023-08-06] MEDS: LACTATED RINGERS 1000ML 1,000 ML 999 ML IV ×2 (06:29→08:14)
[2023-08-06 06:35] LABS: Basophils # 0.1 K/mm3 (0-0.2); Basophils % 0.7 % (0.1-2.0); Eosinophils # 0.1 K/mm3 (0.0-0.4); Eosinophils % 0.5 % (0.1-12.0); Hematocrit 45.4 % (37.0-47.0); Hemoglobin 15.1 g/dL (12.2-16.2); Lymphocytes # 2.3 K/mm3 (0.7-4.5); Lymphocytes % 22.5 % (10-50); Mean Corpuscular HGB Conc 33.2 g/dL (31.8-35.4); Mean Corpuscular Hemoglobin 27.8 pg (27.0-31.2); Mean Corpuscular Volume 83.9 fl (81-99); Mean Platelet Volume 8.3 fl (7.4-10.4); Monocytes # 0.5 K/mm3 (0.1-1.0); Neutrophils # 7.3 K/mm3 (1.8-7.8); Neutrophils % 71.2 % (37.0-80.0); Platelet Count 237 K/mm3 (142-424); Red Blood Count 5.41 M/mm3 (4.20-5.40); Red Cell Distribution Width 13.6 % (11.5-17.5); White Blood Count 10.3 K/mm3 (4.8-10.8)
[2023-08-06 06:43] LABS: Alanine Aminotransferase 23 U/L (12-78); Albumin Level 4.7 g/dl (3.5-5.0); Albumin/Globulin Ratio 1.3 (1.1-1.8); Alkaline Phosphatase 63 U/L (38-126); Anion Gap 13.3 mEq/L (5-15); Aspartate Amino Transferase 27 U/L (14-36); Bilirubin,Total 0.6 mg/dl (0.2-1.3); Blood Urea Nitrogen 7 mg/dl (7-17); Calcium 9.3 mg/dl (8.4-10.2); Carbon Dioxide 26 mmol/L (22.0-30.0); Chloride 102 mmol/L (98-107); Creatinine Clearance Estimated 152 mL/min (50-200); Estimated Glomerular Filt Rate 104 ml/min (>60); GFR (African American) 125 ML/MIN (>60); Globulin 3.6 g/dL (1.3-3.2); Glucose 96 mg/dl (74-100); Lactic Acid 1.4 mmol/L (0.7-2.1); Lipase 40 U/L (23-300); Magnesium 1.6 mg/dl (1.6-2.3); Potassium 4.3 mmoL/L (3.5-5.1); Sodium 137 mmol/L (136-145); Total Protein,Serum 8.3 g/dl (6.3-8.2)
[2023-08-06 07:38] LABS: Coronavirus 19, PCR Not Detected (NotDetected); Influenza A, PCR Not Detected (NotDetected); Influenza B, PCR Not Detected (NotDetected)
--- NOTE | 2023-08-06 08:00 | PC.NURSE ---
pt provided additional crackers, tolerated sprite and crackers earlier. provided additional warm blanket
--- NOTE | 2023-08-06 08:14 | PC.NURSE ---
dr jackson at bedside to reevaluate pt
--- NOTE | 2023-08-06 08:32 | US_ITS ---
PROCEDURE: US OB TRANSVAGINAL CLINICAL INDICATION: hyperemesis, confirmation of COMPARISON: No exams were available for comparison FINDINGS: Transvaginal sonographic images of the pelvis were obtained. Her last menstrual period is unknown. Two intrauterine gestational sacs are present. Twin A: The crown lump length crown-rump length is 1.18cm This correlates to a gestational age of 7weeks 3 days. heart tones are present with an FHR of 152bpm. Yolk sac is noted. The yolk sac measures 4.4mm. Twin B: [place]-rump length is 14.8 mm This correlates to a gestational age of 7 weeks 6 days. heart tones are present. Yolk sac is noted. The yolk sac measures 4.6 mm. The right ovary is seen and appears normal. The left ovary is seen and appears normal. There is no fluid in the cul-de-sac. IMPRESSION: 1. Viable twin gestation. 2. Dating consensus says that we should use the largest fetus for dates. (Twin B )Her MARIBELL will be [birth year]18[birth year]24. 3. Both ovaries are seen and appear normal. There is a small amount of fluid around the left ovary. 4. There appear to be 2 separate sacs. Possibly 1 placenta. 5. No fluid in the cul-de-sac. Dictated by: Anup Gilmore MD 08/06/2023 11:39 Anup Gilmore MD in OV 08/06/2023 11:39
--- NOTE | 2023-08-06 08:55 | PC.NURSE ---
pt gone to ultrasound
--- NOTE | 2023-08-06 09:24 | PC.NURSE ---
PT RETURNED FROM US
--- NOTE | 2023-08-06 09:34 | PC.NURSE ---
DR MATSON AT BEDSIDE TO UPDATE PT ON POC
[2023-08-06 10:33] LABS: HCG,Quantitative 150270 mIU/ml (0-5.42)
== END 2023-08-06 09:45 | disposition home or self-care (01) ==
PROVIDERS: Student in an Organized Health Care Education/Training Program; Emergency Provider Emergency Medicine; PCP Internal Medicine Adolescent Medicine
DX: O21.0 Mild hyperemesis gravidarum (principal); O99.321 Drug use complicating pregnancy, first trimester; O99.281 Endocrine, nutritional and metabolic diseases complicating pregnancy, first trimester; O30.001 Twin pregnancy, unspecified number of placenta and unspecified number of amniotic sacs, first trimester; O26.891 Other specified pregnancy related conditions, first trimester; F12.188 Cannabis abuse with other cannabis-induced disorder; R10.2 Pelvic and perineal pain; R63.4 Abnormal weight loss; Z3A.01 Less than 8 weeks gestation of pregnancy
CPT/HCPCS: 76817; 80053; 83605; 83690; 83735; 84702; 85025; 87636; 96361; 96374; 96375; 99285; J2405

== ENCOUNTER 2023-08-12 03:19 | Emergency (ER) | payer OTHER, SELFPAY ==
[2023-08-12] VITALS (8 sets, daily range): BP systolic 97–143; BP diastolic 43–69; PULSE 61–85; RESP 16–22; TEMP 36.6–36.8; O2SAT 100; BMI 28.3
--- NOTE | 2023-08-12 03:30 | HMH.EDGENADL ---
Discharge Plan Disposition Patient Disposition: Home, Self-Care Prescriptions Prescriptions: No Action omeprazole 40 mg capsule,delayed release(DR/EC) 40 mg PO DAILY Patient Comments: TAKE 1 CAPSULE BY MOUTH ONCE DAILY promethazine [Promethegan] 12.5 mg suppository 12.5 mg [place] Q8HP PRN (Reason: Nausea And Vomiting) ondansetron 4 mg tablet,disintegrating 4 mg PO Q6HP PRN (Reason: Nausea And Vomiting) Patient Comments: DISSOLVE 1 TABLET ON THE TONGUE EVERY 6 HOURS FOR 5 DAYS NEEDED FOR NAUSEA OR VOMITING fluticasone propionate 50 mcg/actuation spray,suspension 1 spray INTRANASAL DAILY Patient Comments: SHAKE LIQUID AND USE 1 SPRAY IN EACH NOSTRIL EVERY DAY loratadine 10 mg tablet 10 mg PO DAILY Patient Comments: TAKE 1 TABLET BY MOUTH EVERY DAY metoclopramide HCl 10 mg tablet 10 mg PO Q6HP PRN (Reason: Nausea And Vomiting) Patient Comments: TAKE 1 TABLET BY MOUTH EVERY 6 HOURS NEEDED FOR NAUSEA OR VOMITING Referrals Follow up/Referrals: Ravi Askew MD [Primary Care Provider] - See instructions Activity Restrictions/Add. Instructions Additional Instructions/Restrictions: Please follow-up with your primary care provider and obgyn. Please return to the emergency department if you develop any new or worsening symptoms or become concerned for your health. Clinical Impressions Clinical Impression: Nausea and vomiting during prior to 22 weeks gestation, Cannabis hyperemesis syndrome concurrent with and due to cannabis dependence Instructions Patient Instructions: DI for Diarrhea and Traveler's Diarrhea -- Adult, DI for Diarrhea and Traveler's Diarrhea -- Child, DI for Nausea -- Adult, DI for Nausea -- Child Discharge ED Provider: Munir Arzola General Adult HPI General Chief complaint: Nausea/Vomiting/Diarrhea Stated complaint: vomiting Time Seen by Provider: 08/12/23 03:25 History of Present Illness HPI narrative: 22-year-old female presents with persistent/worsening nausea vomiting in the setting of . She is 8 weeks based on transvaginal ultrasound obtained 5 days ago which showed twins. She reports that she had hyperemesis with her first and her symptoms this time are worse. She is a chronic large volume marijuana user as well. She has been taking Phenergan and Zofran at home. She reports that she felt well for couple of days after her most recent ED visit, but has feeling worse again. She reports that she cannot keep fluids down over the last couple of days. She reports generalized abdominal discomfort with nausea and vomiting, denies any focal abdominal pain, denies any urinary symptoms. Reports no fever at home. She reports that she has not been able to keep the Zofran or Reglan down, reports the rectal Phenergan has not been working. She has her initial OB appointment scheduled for approximately 7 hours from now. She denies any vaginal bleeding, vaginal discharge, pelvic pain. She reports she has cut down significantly on her marijuana use recently. Related Data Home Medications Medication Instructions Recorded Confirmed fluticasone propionate 50 1 spray intranasal DAILY 08/12/23 08/12/23 mcg/actuation nasal spray,suspension loratadine 10 mg tablet 10 mg PO DAILY 08/12/23 08/12/23 metoclopramide HCl 10 mg tablet 10 mg PO Q6HP PRN Nausea And 08/12/23 08/12/23 Vomiting omeprazole 40 mg capsule,delayed 40 mg PO DAILY 08/12/23 08/12/23 release ondansetron 4 mg disintegrating 4 mg PO Q6HP PRN Nausea And 08/12/23 08/12/23 tablet Vomiting promethazine 12.5 mg rectal 12.5 mg WI Q8HP PRN Nausea And 08/12/23 08/12/23 suppository (Promethegan) Vomiting Allergies Allergy/AdvReac Type Severity Reaction Status Date / Time No Known Allergies Allergy Verified 07/16/23 13:15 [facility] Disclaimer: The information contained in this section may have been updated after the patient was seen, as this information can be updated by other users. Medical History (Updated 08/12/23 @ 05:11 by Munir Arzola MD) Asthma Surgical History (Updated 08/12/23 @ 03:38 by Gianluca Shankar RN) No history of previous surgery Family History (Updated 08/12/23 @ 03:38 by Gianluca Shankar RN) Other No significant family history Social History (Updated 08/12/23 @ 03:38 by Gianluca Shankar RN) Smoking Status: Current every day smoker tobacco type: cigarettes packs per day: 1 alcohol intake: never substance use type: denies use current occupational status: employed Travel in the last 8 weeks: None household members: family housing: house ROS Obtained: Yes All systems reviewed & no additional complaints except as documented Physical Exam General General appearance: alert and anxious Head Head exam: atraumatic and normocephalic Eye Eye exam: Present normal appearance, PERRL and EOMI ENT ENT exam: Present normal oropharynx and normal external ear exam Neck Neck exam: Present normal inspection and full ROM Chest Chest inspection: Present normal inspection and symmetric chest wall rise; Absent tenderness Respiratory Respiratory exam: Present normal lung sounds bilaterally; Absent respiratory distress Cardiovascular Cardiovascular exam: Present regular rate and normal rhythm Abdominal Exam Abdominal exam: Present soft; Absent distention, tenderness or guarding Extremities Exam Extremities exam: Present normal inspection; Absent edema or joint swelling Back Exam Back exam: Present normal inspection; Absent tenderness Neurological Exam Neurological exam: Present alert and oriented X3; Absent motor sensory deficit Psychiatric Psychiatric exam: Present normal affect and normal mood Skin Skin exam: Present warm, dry and normal color Lymphatic Lymphatic Findings: no adenopathy Medical Decision Making Medical Records Medical records reviewed: Yes I reviewed the patient's medical records. Vivek Inquiry Pt receiving controlled substance: No Vivek was queried for this patient: No Vital Signs: 08/12/23 03:20 08/12/23 03:30 08/12/23 04:01 Temperature 97.8 F Temperature Source Oral Pulse Rate 85 62 Pulse Rate [Left] 75 Respiratory Rate 22 18 Blood Pressure 143/69 H 97/55 L Blood Pressure [Right Arm] 143/69 H Blood Pressure Mean 69 Blood Pressure Mean [Right Arm] 93 Blood Pressure Source [Right Arm] Automatic Cuff Blood Pressure Position [Right Arm] Supine 02 Sat by Pulse Oximetry 100 100 100 Oxygen Delivery Method Room Air Room Air Room Air Lab Data Lab results reviewed: Yes I reviewed the patient's lab results. Lab Results 08/12/23 03:40: WBC 12.7 H, RBC 4.74, Hgb 13.2, Hct 39.9, MCV 84.1, MCH 27.8, MCHC 33.0, RDW 13.6, Plt Count 206, MPV 9.1, Neut % (Auto) 73.0, Lymph % (Auto) 22.2, [place] % (Auto) 3.7, Eos % (Auto) 0.7, Baso % (Auto) 0.4, Neut # (Auto) 9.3 H, Lymph # (Auto) 2.8, [place] # (Auto) 0.5, Eos # (Auto) 0.1, Baso # (Auto) 0.1, Sodium 137, Potassium 3.8, Chloride 104, Carbon Dioxide 26, Anion Gap 10.8, BUN 9, Creatinine 0.70, Estimated Creat Clear 166, Estimated GFR 104, Est GFR ( Amer) 125, Glucose 105 H, Calcium 8.9, Magnesium 1.7, Total Bilirubin 0.4, AST 22, ALT 18, Alkaline Phosphatase 56, Total Protein 7.4, Albumin 4.3, Globulin 3.1, Albumin/Globulin Ratio 1.4, Lipase 45 08/12/23 03:40 08/12/23 03:40 Orders (Tests/Meds): ED MEDICATIONS Generic Name Dose Route Start Last Admin Trade Name Freq PRN Reason Stop Dose Admin Lactated Ringer's 1,000 mls @ 999 mls/hr 08/12/23 03:45 08/12/23 03:44 Lactated Ringer's 1000 Ml Bag IV 08/12/23 05:45 999 mls/hr .Q1H1M ORALIA Administration Discontinued Medications Generic Name Dose Route Start Last Admin Trade Name Freq PRN Reason Stop Dose Admin Metoclopramide HCl 10 mg 08/12/23 03:39 08/12/23 03:43 Metoclopramide Hcl 10mg/2ml Vial IVP 08/12/23 03:40 10 mg ONCE ONE Administration Ondansetron HCl 4 mg 08/12/23 03:38 08/12/23 03:42 Ondansetron 4mg/2ml Vial IV 08/12/23 03:39 4 mg ONCE ONE Administration ORDERS Category Date Time Status CBC w/Auto Diff [Complete Blood Count Auto Diff] Stat Lab 08/12/23 03:40 Completed CMP [Comprehensive Metabolic Panel] Stat Lab 08/12/23 03:40 Completed Lipase Stat Lab 08/12/23 03:40 Completed Magnesium Stat Lab 08/12/23 03:40 Completed Medical Decision Narrative: 22-year-old female, presents complicated by history of chronic marijuana usage, hyperemesis gravidarum with prior , currently 8 weeks with twins, presents to the ER with nausea vomiting and p.o. intolerance approximately 6 days after most recent visit for similar symptoms.. History was obtained via conversation with patient, chart review. On arrival, patient is [afebrile, hemodynamically stable, satting appropriately, alert, oriented x4, GCS 15], moving all extremities spontaneously. Full physical exam performed and significant for anxious appearing intermittently tearful woman without focal abdominal tenderness. She frequently drinks water and then throws it up. Weight is 186 pounds, up 1.5 pounds from visit 6 days ago. Differential includes but is not limited to hyperemesis gravidarum, dehydration, electrolyte derangement, cannabis hyperemesis syndrome. Patient was given 2 L fluid bolus, IV Zofran, IV Reglan for symptomatic management and correction of underlying abnormalities. Workup initiated including CBC CMP mag lipase. Laboratory workup independently interpreted by me and significant for normal creatinine, normal potassium, normal mag, normal lipase. At 0400 patient placed in observation status to assess IV antiemetic interventions and provide continued fluid resuscitation. On reassessment, She was sleeping comfortably. no longer vomiting or dry heaving. Reports marked symptomatic improvement. Patient was taken out of observation status at 0 520 as she does not require admission for p.o. intolerance at this time. Total time in observation 1 hour and 20 minutes. I had extensive discussion with patient regarding symptoms and symptom management. She will follow-up with her [facility] [employer] [employer] appointment in the next few hours. Admission for hyperemesis gravidarum was considered, but deemed unnecessary as patient has gained weight since prior visit, has no significant dehydration or electrolyte derangements based on labs, has rapid followup. Procedures Risk/Benefits of Procedure(s) Were Explained: Yes Critical Care Critical Care Time Critical Care Time: No
[2023-08-12] MEDS: LACTATED RINGERS 1000ML 1,000 ML 999 ML IV ×2 (03:42→03:44)
[2023-08-12] MEDS: ONDANSETRON 4MG/2ML VIAL 4 MG IV (03:42)
[2023-08-12] MEDS: METOCLOPRAMIDE HCL 10MG/2ML VIAL 10 MG IVP (03:43)
[2023-08-12 03:50] LABS: Basophils # 0.1 K/mm3 (0-0.2); Basophils % 0.4 % (0.1-2.0); Eosinophils # 0.1 K/mm3 (0.0-0.4); Eosinophils % 0.7 % (0.1-12.0); Hematocrit 39.9 % (37.0-47.0); Hemoglobin 13.2 g/dL (12.2-16.2); Lymphocytes # 2.8 K/mm3 (0.7-4.5); Lymphocytes % 22.2 % (10-50); Mean Corpuscular Hemoglobin 27.8 pg (27.0-31.2); Mean Corpuscular Volume 84.1 fl (81-99); Mean Platelet Volume 9.1 fl (7.4-10.4); Monocytes # 0.5 K/mm3 (0.1-1.0); Monocytes % 3.7 % (1.7-9.3); Neutrophils # 9.3 K/mm3 (1.8-7.8); Platelet Count 206 K/mm3 (142-424); Red Blood Count 4.74 M/mm3 (4.20-5.40); Red Cell Distribution Width 13.6 % (11.5-17.5); White Blood Count 12.7 K/mm3 (4.8-10.8)
[2023-08-12 03:54] LABS: Chloride 104 mmol/L (98-107); Sodium 137 mmol/L (136-145)
[2023-08-12 03:55] LABS: Potassium 3.8 mmoL/L (3.5-5.1)
[2023-08-12 03:57] LABS: Alanine Aminotransferase 18 U/L (12-78); Albumin Level 4.3 g/dl (3.5-5.0); Albumin/Globulin Ratio 1.4 (1.1-1.8); Alkaline Phosphatase 56 U/L (38-126); Anion Gap 10.8 mEq/L (5-15); Aspartate Amino Transferase 22 U/L (14-36); Bilirubin,Total 0.4 mg/dl (0.2-1.3); Blood Urea Nitrogen 9 mg/dl (7-17); Calcium 8.9 mg/dl (8.4-10.2); Carbon Dioxide 26 mmol/L (22.0-30.0); Creatinine Clearance Estimated 166 mL/min (50-200); Estimated Glomerular Filt Rate 104 ml/min (>60); GFR (African American) 125 ML/MIN (>60); Globulin 3.1 g/dL (1.3-3.2); Glucose 105 mg/dl (74-100); Lipase 45 U/L (23-300); Total Protein,Serum 7.4 g/dl (6.3-8.2)
[2023-08-12 03:58] LABS: Magnesium 1.7 mg/dl (1.6-2.3)
== END 2023-08-12 05:35 | disposition home or self-care (01) ==
PROVIDERS: Emergency Provider Emergency Medicine; PCP Internal Medicine Adolescent Medicine
DX: O21.9 Vomiting of pregnancy, unspecified (principal); O99.321 Drug use complicating pregnancy, first trimester; F12.288 Cannabis dependence with other cannabis-induced disorder; F17.210 Nicotine dependence, cigarettes, uncomplicated; J45.909 Unspecified asthma, uncomplicated; O99.331 Smoking (tobacco) complicating pregnancy, first trimester; O99.512 Diseases of the respiratory system complicating pregnancy, second trimester; O30.009 Twin pregnancy, unspecified number of placenta and unspecified number of amniotic sacs, unspecified trimester
CPT/HCPCS: 80053; 83690; 83735; 85025; 96361; 96374; 96375; 99285; J2405

== ENCOUNTER 2023-08-20 11:38 | Emergency (ER) | payer OTHER, SELFPAY ==
[2023-08-20 11:39] VITALS: BP 150/71; PULSE 95; RESP 18; TEMP 36.6; O2SAT 99; BMI 27.3
[2023-08-20 11:42] VITALS: BP 150/71; PULSE 92; O2SAT 97
--- NOTE | 2023-08-20 12:01 | US_ITS ---
PROCEDURE: US OB TRANSVAGINAL CLINICAL INDICATION: bleeding, , passed tissue COMPARISON: US US OB TRANSVAGINAL from 08/06/2023 FINDINGS: Transvaginal sonographic images of the pelvis were obtained. From her last menstrual period she is 9weeks 3days. Twin . Twin A: A viable intrauterine gestation is present with a crown-rump length of 3.0 cm. This correlates to a gestational age of 9weeks 6days. heart tones are present with an FHR of 170bpm. Twin B: Viable intrauterine gestation is present with a crown-rump length of 2.94 cm. This correlates to a gestational age of 9 weeks 6 days. heart tones are present with an FHR of 158 BPM. There appears to be a small subchorionic hemorrhage in the lower uterine segment. The fetuses is are diamniotic. The right ovary is seen and appears normal. The left ovary is seen and appears normal. There is no fluid in the cul-de-sac. IMPRESSION: 1. Viable twin gestation at 9 weeks 6 days. There are 2 gestational sacs. The chorionicity is not determined yet. 2. heart tones are present in both babies. 3. There has been good interval growth since her last ultrasound. 4. A small subchorionic hemorrhage is seen in the lower uterine segment. Dictated by: Anup Gilmore MD 08/20/2023 16:00 Anup Gilmore MD in OV 08/20/2023 16:00
--- NOTE | 2023-08-20 12:06 | ED_ITS ---
Discharge Plan Disposition Patient Disposition: Home, Self-Care Prescriptions Prescriptions: New cephalexin 500 mg capsule 1,000 mg PO BID 7 Days Qty: 28 0RF No Action omeprazole 40 mg capsule,delayed release(DR/EC) 40 mg PO DAILY Patient Comments: TAKE 1 CAPSULE BY MOUTH ONCE DAILY promethazine [Promethegan] 12.5 mg suppository 12.5 mg [place] Q8HP PRN (Reason: Nausea And Vomiting) ondansetron 4 mg tablet,disintegrating 4 mg PO Q6HP PRN (Reason: Nausea And Vomiting) Patient Comments: DISSOLVE 1 TABLET ON THE TONGUE EVERY 6 HOURS FOR 5 DAYS NEEDED FOR NAUSEA OR VOMITING fluticasone propionate 50 mcg/actuation spray,suspension 1 spray INTRANASAL DAILY Patient Comments: SHAKE LIQUID AND USE 1 SPRAY IN EACH NOSTRIL EVERY DAY loratadine 10 mg tablet 10 mg PO DAILY Patient Comments: TAKE 1 TABLET BY MOUTH EVERY DAY metoclopramide HCl 10 mg tablet 10 mg PO Q6HP PRN (Reason: Nausea And Vomiting) Patient Comments: TAKE 1 TABLET BY MOUTH EVERY 6 HOURS NEEDED FOR NAUSEA OR VOMITING ondansetron HCl 4 mg tablet 4 mg PO Q8H PRN (Reason: nausea and vomiting) 5 Days Qty: 30 0RF Referrals Follow up/Referrals: Ravi Askew MD [Primary Care Provider] - See instructions Activity Restrictions/Add. Instructions Additional Instructions/Restrictions: Antibiotic twice daily for the full course. Call your family doctor to [facility] for this visit to the emergency department and schedule follow-up within 48 hours to ensure improvement. If you have any worsening of your condition or any other concerning signs or symptoms, return to the emergency department or your primary care doctor for further evaluation. Be sure to call your [facility] to follow-up after this ER visit. Clinical Impressions Clinical Impression: Vaginal bleeding affecting early , UTI (urinary tract infection), Subchorionic bleed Discharge ED Provider: Ayaz Faith General Adult HPI General Chief complaint: Vaginal Bleeding Stated complaint: 9 wks twin vaginal bleeding Time Seen by Provider: 08/20/23 11:45 Mode of Arrival: Ambulatory Source of Information: Patient Limitations: No Limitations Description of Symptoms (Recalled from ER Triage Doc. by RN): Patient states she is 9 weeks with twins and woke up this morning with pale pink bleeding and a small clot in toilet. Patient states she has some cramping. History of Present Illness HPI narrative: 22-year-old female 10 weeks presenting with vaginal bleeding. She woke up today on 08/20 and went to the bathroom. She had spotting and bleeding, passed tissue. Came to the emergency department for further evaluation knowing that she is Rh- and bleeding and wanted to check on baby. Related Data Home Medications Medication Instructions Recorded Confirmed fluticasone propionate 50 1 spray intranasal DAILY 08/12/23 08/12/23 mcg/actuation nasal spray,suspension loratadine 10 mg tablet 10 mg PO DAILY 08/12/23 08/12/23 metoclopramide HCl 10 mg tablet 10 mg PO Q6HP PRN Nausea And 08/12/23 08/12/23 Vomiting omeprazole 40 mg capsule,delayed 40 mg PO DAILY 08/12/23 08/12/23 release ondansetron 4 mg disintegrating 4 mg PO Q6HP PRN Nausea And 08/12/23 08/12/23 tablet Vomiting promethazine 12.5 mg rectal 12.5 mg AL Q8HP PRN Nausea And 08/12/23 08/12/23 suppository (Promethegan) Vomiting Previous Rx's Medication Instructions Recorded ondansetron HCl 4 mg tablet 4 mg PO Q8H PRN nausea and 08/12/23 vomiting 5 days #30 tabs cephalexin 500 mg capsule 1,000 mg PO BID 7 days #28 caps 08/20/23 Allergies Allergy/AdvReac Type Severity Reaction Status Date / Time No Known Allergies Allergy Verified 07/16/23 13:15 [facility] Disclaimer: The information contained in this section may have been updated after the patient was seen, as this information can be updated by other users. Medical History (Updated 08/20/23 @ 13:35 by Ayaz Faith MD) Asthma Surgical History (Updated 08/12/23 @ 03:38 by Gianluca Shankar RN) No history of previous surgery Family History (Updated 08/12/23 @ 03:38 by Gianluca Shankar RN) Other No significant family history Social History (Updated 08/12/23 @ 03:38 by Gianluca Shankar RN) Smoking Status: Current every day smoker tobacco type: cigarettes packs per day: 1 alcohol intake: never substance use type: denies use current occupational status: employed Travel in the last 8 weeks: None household members: family housing: house ROS Obtained: Yes All systems reviewed & no additional complaints except as documented Physical Exam General General appearance: alert and in no apparent distress Head Head exam: atraumatic and normocephalic Eye Eye exam: Present normal appearance, PERRL and EOMI ENT ENT exam: Present mucous membranes moist Neck Neck exam: Present normal inspection, full ROM and trachea midline Respiratory Respiratory exam: Absent respiratory distress, wheezes, stridor, accessory muscle use or prolonged expiratory phase Cardiovascular Cardiovascular exam: Present normal rhythm Abdominal Exam Abdominal exam: Present soft; Absent distention, tenderness, guarding, rebound or rigidity Extremities Exam Extremities exam: Absent edema Neurological Exam Neurological exam: Present alert, oriented X3, CN II-XII intact and normal gait; Absent motor sensory deficit Skin Skin exam: Present warm and dry; Absent diaphoresis or erythema Medical Decision Making Medical Records Medical records reviewed: Yes I reviewed the patient's medical records. Vivek Inquiry Pt receiving controlled substance: No Vivek was queried for this patient: No Vital Signs: 08/20/23 11:39 08/20/23 11:42 Temperature 97.9 F Temperature Source Oral Pulse Rate 92 H Pulse Rate [Right] 95 H Respiratory Rate 18 Blood Pressure 150/71 H Blood Pressure [Right Arm] 150/71 H Blood Pressure Mean [Right Arm] 97 Blood Pressure Source [Right Arm] Automatic Cuff 02 Sat by Pulse Oximetry 99 97 Oxygen Delivery Method Room Air Room Air Lab Data Lab Results 08/20/23 11:52: WBC 10.0, RBC 4.54, Hgb 13.2, Hct 37.6, MCV 82.7, MCH 29.1, MCHC 35.2, RDW 13.4, Plt Count 230, MPV 8.3, Neut % (Auto) 66.5, Lymph % (Auto) 27.9, [place] % (Auto) 4.2, Eos % (Auto) 0.9, Baso % (Auto) 0.5, Neut # (Auto) 6.6, Lymph # (Auto) 2.8, [place] # (Auto) 0.4, Eos # (Auto) 0.1, Baso # (Auto) 0.1, Sodium 135 L, Potassium 3.6, Chloride 104, Carbon Dioxide 25, Anion Gap 9.6, BUN 8, Creatinine 0.60, Estimated Creat Clear 188, Estimated GFR 124, Est GFR ( Amer) 150, Glucose 98, Calcium 9.4, Total Bilirubin 0.5, AST 28, ALT 21, Alkaline Phosphatase 58, Total Protein 7.4, Albumin 4.1, Globulin 3.3 H, Albumin/Globulin Ratio 1.2, Urine Color Yellow, Urine Appearance Clear, Urine pH 6.0, Ur Specific [place] 1.010, Urine Protein Negative, Urine Glucose (UA) Negative, Urine Ketones Negative, Urine Blood 3+, Urine Nitrate Negative, Urine Bilirubin Negative, Urine Urobilinogen 0.2, Ur Leukocyte Esterase 1+ A 08/20/23 11:52 08/20/23 11:52 Orders (Tests/Meds): ED MEDICATIONS Generic Name Dose Route Start Last Admin Trade Name Freq PRN Reason Stop Dose Admin Rho Immune Globulin 0 unit 08/20/23 12:04 Rho(D) Immune Globulin 1,500 Unit Syringe IM 09/19/23 12:03 NEEDED PRN For Rh Pre/ scrn resu ORDERS Category Date Time Status Rhogam Stat BBK 08/20/23 12:20 Received CBC [Complete Blood Count Auto Diff] Stat Lab 08/20/23 11:52 Completed CMP [Comprehensive Metabolic Panel] Stat Lab 08/20/23 11:52 Completed UA [Urinalysis and Microscopic] Stat Lab 08/20/23 11:52 Results Urine Culture Stat Micro 08/20/23 11:52 Received US OB transvaginal Stat Ultrasound 08/20/23 12:01 Taken Medical Decision Narrative: 22-year-old female 10 weeks presenting with vaginal bleeding. She woke up today on 08/20 and went to the bathroom. She had spotting and bleeding, passed tissue. Came to the emergency department for further evaluation knowing that she is Rh- and bleeding and wanted to check on baby. History was obtained via conversation with patient. On arrival, patient hemodynamically stable, alert, oriented x4, appropriate, GCS 15, moving all extremities spontaneously, pupils equal and reactive to light. Full physical exam performed and significant for well-appearing woman in no acute distress. No abdominal tenderness. No flank tenderness. Overall well- appearing. Differential includes subchorionic hemorrhage, abruption, , among others. Patient was given RhoGAM for symptomatic management and correction of underlying abnormalities. Workup independently interpreted and significant for nonactionable CBC. Urinalysis concerning for UTI. Scant subchorionic hemorrhage. Transvaginal ultrasound to viable pregnancies and separate gestational sacs. Independently interpreted and significant for see radiology read for full review of final results. On reevaluation, patient resting comfortably in bed.Given patient presentation, workup, history, this most likely represents UTI, subchorionic hemorrhage. Because patient at baseline without signs or symptoms of clinical de compensation, deemed appropriate for discharge. Results were relayed to patient who voiced understanding and were agreeable to outpatient management and follow up. At the time of discharge the patient was hemodynamically stable, tolerating PO, and mobilizing appropriately. Critical Care Critical Care Time Critical Care Time: No
[2023-08-20 12:12] LABS: Basophils # 0.1 K/mm3 (0-0.2); Basophils % 0.5 % (0.1-2.0); Eosinophils # 0.1 K/mm3 (0.0-0.4); Eosinophils % 0.9 % (0.1-12.0); Hematocrit 37.6 % (37.0-47.0); Hemoglobin 13.2 g/dL (12.2-16.2); Lymphocytes # 2.8 K/mm3 (0.7-4.5); Lymphocytes % 27.9 % (10-50); Mean Corpuscular HGB Conc 35.2 g/dL (31.8-35.4); Mean Corpuscular Hemoglobin 29.1 pg (27.0-31.2); Mean Corpuscular Volume 82.7 fl (81-99); Mean Platelet Volume 8.3 fl (7.4-10.4); Monocytes # 0.4 K/mm3 (0.1-1.0); Monocytes % 4.2 % (1.7-9.3); Neutrophils # 6.6 K/mm3 (1.8-7.8); Neutrophils % 66.5 % (37.0-80.0); Platelet Count 230 K/mm3 (142-424); Red Blood Count 4.54 M/mm3 (4.20-5.40); Red Cell Distribution Width 13.4 % (11.5-17.5)
[2023-08-20 12:13] LABS: Chloride 104 mmol/L (98-107); Potassium 3.6 mmoL/L (3.5-5.1); Sodium 135 mmol/L (136-145)
[2023-08-20 12:15] LABS: Alanine Aminotransferase 21 U/L (12-78); Aspartate Amino Transferase 28 U/L (14-36); Blood Urea Nitrogen 8 mg/dl (7-17); Creatinine Clearance Estimated 188 mL/min (50-200); Estimated Glomerular Filt Rate 124 ml/min (>60); GFR (African American) 150 ML/MIN (>60)
[2023-08-20 12:16] LABS: Albumin Level 4.1 g/dl (3.5-5.0); Albumin/Globulin Ratio 1.2 (1.1-1.8); Alkaline Phosphatase 58 U/L (38-126); Anion Gap 9.6 mEq/L (5-15); Bilirubin,Total 0.5 mg/dl (0.2-1.3); Calcium 9.4 mg/dl (8.4-10.2); Carbon Dioxide 25 mmol/L (22.0-30.0); Globulin 3.3 g/dL (1.3-3.2); Glucose 98 mg/dl (74-100); Total Protein,Serum 7.4 g/dl (6.3-8.2)
[2023-08-20 12:48] LABS: Microscopic, Urine URINE MICROSCOPIC (MICROSCOPIC)
--- NOTE | 2023-08-20 13:09 | PC.NURSE ---
PT IS AT ULTRASOUND
[2023-08-20 13:10] LABS: Appearance,Urine CLEAR (Clear); Bilirubin,Urine Negative (Negative); Blood, Urine 3+ (Negative); Color,Urine YELLOW (Yellow); Glucose,Urine (UA) Negative (Negative); Ketones,Urine Negative (Negative); Leukocyte Esterase,Urine 1+ (Negative); Nitrate,Urine Negative (Negative); Protein,Urine Negative (Negative); Urobilinogen,Urine 0.2 EU/dl (0.2)
--- NOTE | 2023-08-20 13:25 | PC.NURSE ---
pt returned from ultrasound, per tech there are two viable fetuses, gave verbal info to ACACIA ASHER
[2023-08-20 13:32] LABS: Bacteria,Urine Trace /lpf; WBC,Urine Occasional #/hpf (0-3)
[2023-08-20 14:19] VITALS: BP 121/62; PULSE 70; RESP 18; TEMP 36.6; O2SAT 97
[2023-08-20] MEDS: RHO(D) IMMUNE GLOBULIN 1,500 UNIT SYRINGE IM (14:32)
== END 2023-08-20 14:39 | disposition home or self-care (01) ==
PROVIDERS: Emergency Provider Emergency Medicine; PCP Internal Medicine Adolescent Medicine
DX: O23.41 Unspecified infection of urinary tract in pregnancy, first trimester (principal); O41.8X10 Other specified disorders of amniotic fluid and membranes, first trimester, not applicable or unspecified; O99.511 Diseases of the respiratory system complicating pregnancy, first trimester; O99.331 Smoking (tobacco) complicating pregnancy, first trimester; O30.009 Twin pregnancy, unspecified number of placenta and unspecified number of amniotic sacs, unspecified trimester; J45.909 Unspecified asthma, uncomplicated; F17.210 Nicotine dependence, cigarettes, uncomplicated; Z3A.10 10 weeks gestation of pregnancy; O36.0110 Maternal care for anti-D [Rh] antibodies, first trimester, not applicable or unspecified
CPT/HCPCS: 36415; 76817; 80053; 81001; 85025; 87086; 90471; 96372; 99285; J2790

== ENCOUNTER 2023-08-23 19:39 | Emergency (ER) | payer OTHER, SELFPAY ==
[2023-08-23 19:40] VITALS: BP 163/72; PULSE 86; RESP 20; TEMP 36.6; O2SAT 100; BMI 25.8
--- NOTE | 2023-08-23 20:35 | HMH.EDGENADL ---
Discharge Plan Disposition Patient Disposition: Home, Self-Care Prescriptions Prescriptions: No Action omeprazole 40 mg capsule,delayed release(DR/EC) 40 mg PO DAILY Patient Comments: TAKE 1 CAPSULE BY MOUTH ONCE DAILY promethazine [Promethegan] 12.5 mg suppository 12.5 mg CA Q8HP PRN (Reason: Nausea And Vomiting) ondansetron 4 mg tablet,disintegrating 4 mg PO Q6HP PRN (Reason: Nausea And Vomiting) Patient Comments: DISSOLVE 1 TABLET ON THE TONGUE EVERY 6 HOURS FOR 5 DAYS NEEDED FOR NAUSEA OR VOMITING fluticasone propionate 50 mcg/actuation spray,suspension 1 spray INTRANASAL DAILY Patient Comments: SHAKE LIQUID AND USE 1 SPRAY IN EACH NOSTRIL EVERY DAY loratadine 10 mg tablet 10 mg PO DAILY Patient Comments: TAKE 1 TABLET BY MOUTH EVERY DAY metoclopramide HCl 10 mg tablet 10 mg PO Q6HP PRN (Reason: Nausea And Vomiting) Patient Comments: TAKE 1 TABLET BY MOUTH EVERY 6 HOURS NEEDED FOR NAUSEA OR VOMITING ondansetron HCl 4 mg tablet 4 mg PO Q8H PRN (Reason: nausea and vomiting) 5 Days Qty: 30 0RF cephalexin 500 mg capsule 1,000 mg PO BID 7 Days Qty: 28 0RF Referrals Follow up/Referrals: Ravi Askew MD [Primary Care Provider] - See instructions Activity Restrictions/Add. Instructions Additional Instructions/Restrictions: Please follow-up with primary care doctor and your X RAY DEVELOPING MACHINE OPERATOR doctor as previously instructed return to the emergency department any worsening symptoms. Clinical Impressions Clinical Impression: Twin gestation in first trimester, Nausea and vomiting during Instructions Patient Instructions: DI for Diarrhea and Traveler's Diarrhea -- Adult, DI for Diarrhea and Traveler's Diarrhea -- Child, DI for Nausea -- Adult, DI for Nausea -- Child Discharge ED Provider: Oh Zhang General Adult HPI General Chief complaint: Nausea/Vomiting/Diarrhea Stated complaint: 11 wks preg, vomitting, abd pain Time Seen by Provider: 08/23/23 20:24 Mode of Arrival: Ambulatory Source of Information: Patient Limitations: No Limitations Description of Symptoms (Recalled from ER Triage Doc. by RN): 11 weeks with twins been seen here several times for n/v, pt states she is unable to stand and cant keep her po meds down History of Present Illness HPI narrative: Patient is a G3, P1 at 11 weeks gestation recently diagnosed with twins presented with nausea vomiting. She has a history of cannabinol hyperemesis and cyclical vomiting but states she recently has stopped smoking marijuana but continues to have nausea and vomiting despite numerous antiemetic medications at home including Zofran and Reglan Phenergan etc. She states that she is just not been able to keep anything down which is what brought her in today she also has some weakness associated with vomiting. Denies any significant abdominal pain loss of fluid contractions etc. Related Data Home Medications Medication Instructions Recorded Confirmed fluticasone propionate 50 1 spray intranasal DAILY 08/12/23 08/12/23 mcg/actuation nasal spray,suspension loratadine 10 mg tablet 10 mg PO DAILY 08/12/23 08/12/23 metoclopramide HCl 10 mg tablet 10 mg PO Q6HP PRN Nausea And 08/12/23 08/12/23 Vomiting omeprazole 40 mg capsule,delayed 40 mg PO DAILY 08/12/23 08/12/23 release ondansetron 4 mg disintegrating 4 mg PO Q6HP PRN Nausea And 08/12/23 08/12/23 tablet Vomiting promethazine 12.5 mg rectal 12.5 mg CA Q8HP PRN Nausea And 08/12/23 08/12/23 suppository (Promethegan) Vomiting Previous Rx's Medication Instructions Recorded ondansetron HCl 4 mg tablet 4 mg PO Q8H PRN nausea and 08/12/23 vomiting 5 days #30 tabs cephalexin 500 mg capsule 1,000 mg PO BID 7 days #28 caps 08/20/23 Allergies Allergy/AdvReac Type Severity Reaction Status Date / Time No Known Allergies Allergy Verified 07/16/23 13:15 [facility] Disclaimer: The information contained in this section may have been updated after the patient was seen, as this information can be updated by other users. Medical History (Updated 08/23/23 @ 20:39 by Oh Zhang MD) Asthma Surgical History (Updated 08/12/23 @ 03:38 by Gianluca Shankar RN) No history of previous surgery Family History (Updated 08/12/23 @ 03:38 by Gianluca Shankar RN) Other No significant family history Social History (Updated 08/12/23 @ 03:38 by Gianluca Shankar RN) Smoking Status: Current every day smoker tobacco type: cigarettes packs per day: 1 alcohol intake: never substance use type: denies use current occupational status: employed Travel in the last 8 weeks: None household members: family housing: house ROS Obtained: Yes All systems reviewed & no additional complaints except as documented Physical Exam General General appearance: alert Respiratory Respiratory exam: Present normal lung sounds bilaterally; Absent respiratory distress Cardiovascular Cardiovascular exam: Present regular rate; Absent tachycardia Abdominal Exam Abdominal exam: Present soft; Absent distention or tenderness Neurological Exam Neurological exam: Present alert and oriented X3 Medical Decision Making Vivek Inquiry Pt receiving controlled substance: No Vital Signs: 08/23/23 19:40 Temperature 97.8 F Temperature Source Oral Pulse Rate [Right Radial] 86 Respiratory Rate 20 Blood Pressure [Right Arm] 163/72 H Blood Pressure Mean [Right Arm] 102 02 Sat by Pulse Oximetry 100 Oxygen Delivery Method Room Air Lab Data Lab results reviewed: Yes I reviewed the patient's lab results. Lab Results 08/23/23 20:46: WBC 13.5 H, RBC 4.63, Hgb 13.3, Hct 38.2, MCV 82.5, MCH 28.7, MCHC 34.8, RDW 13.4, Plt Count 188, MPV 8.1, Neut % (Auto) 91.8 H, Lymph % (Auto) 5.4 L, [place] % (Auto) 1.7, Eos % (Auto) 0.8, Baso % (Auto) 0.2, Neut # (Auto) 12.4 H, Lymph # (Auto) 0.7, [place] # (Auto) 0.2, Eos # (Auto) 0.1, Baso # (Auto) 0.0, Total Counted 100, Neutrophils % (Manual) 90 H, Lymphocytes % (Manual) 8 L, Monocytes % (Manual) 2, Platelet Estimate Normal, RBC Morphology Normal, Sodium 136, Potassium 3.8, Chloride 103, Carbon Dioxide 24, Anion Gap 12.8, BUN 6 L, Creatinine 0.60, Estimated Creat Clear 178, Estimated GFR 124, Est GFR ( Amer) 150, Glucose 103 H, Calcium 9.2, Total Bilirubin 0.9, AST 32, ALT 25, Alkaline Phosphatase 67, Total Protein 7.5, Albumin 4.3, Globulin 3.2, Albumin/Globulin Ratio 1.3 08/23/23 20:46 08/23/23 20:46 Orders (Tests/Meds): ED MEDICATIONS Generic Name Dose Route Start Last Admin Trade Name Freq PRN Reason Stop Dose Admin Lactated Ringer's 1,000 mls @ 999 mls/hr 08/23/23 20:45 08/23/23 20:50 Lactated Ringer's 1000 Ml Bag IV 08/23/23 21:45 999 mls/hr .Q1H1M ORALIA Administration Discontinued Medications Generic Name Dose Route Start Last Admin Trade Name Freq PRN Reason Stop Dose Admin Diphenhydramine HCl 25 mg 08/23/23 20:34 08/23/23 20:50 Diphenhydramine 50mg/Ml Vial IV 08/23/23 20:35 25 mg ONCE ONE Administration Metoclopramide HCl 5 mg 08/23/23 20:34 08/23/23 20:50 Metoclopramide Hcl 10mg/2ml Vial IVP 08/23/23 20:35 5 mg ONCE ONE Administration Ondansetron HCl 4 mg 08/23/23 20:34 08/23/23 20:50 Ondansetron 4mg/2ml Vial IV 08/23/23 20:35 4 mg ONCE ONE Administration ORDERS Category Date Time Status POCUS Point of Care (ER Only) Stat Exams 08/23/23 20:24 Taken CBC w/Auto Diff [Complete Blood Count Auto Diff] Stat Lab 08/23/23 20:46 Completed CMP [Comprehensive Metabolic Panel] Stat Lab 08/23/23 20:46 Completed Medical Decision Narrative: Patient is a 22-year-old well-known to our emergency department presenting with recurrent nausea and vomiting has a history of cyclical vomiting cannabinol hyperemesis. She states she has recently stopped smoking but continues to have nausea and vomiting abdominal exam is benign she does not appear to be moderate or severely dehydrated will place IV fluids give Reglan Benadryl Zofran and reassess. Limited bedside ultrasound confirmed that she has living intrauterine pregnancies no significant complication concerning for that abdominal exam is benign she has no bleeding contractions loss of fluid etc. If and get her to tolerate p.o. she should be stable for outpatient management. Reassessment 9:42 PM patient feeling much better serial abdominal exams are benign she is tolerating p.o. she has prescription at home she states she does not need any further medications to be sent to her pharmacy she will follow-up with primary care doctor and X RAY DEVELOPING MACHINE OPERATOR doctor as previously instructed return to the emergency department any worsening symptoms. Procedures Miscellaneous Procedure Procedure Performed: Limited OB ultrasound Indication: Nausea and vomiting in the setting of twins Identified structures: [-Uterus -Left adnexa -Right adnexa -Pouch of Jhon] Findings: Uterus: Definitive IUP confirming twins consistent with dates both with normal heart rates but around 170 Right adnexa: No free fluid Left adnexa: No free fluid Cul de sac: No free fluid Impression: Twin gestation consistent with dates normal heart rates Images were saved to permanent archive The study was technically adequate CPT Transabdominal: 59269-13 This study was performed by me, and I personally interpreted all images/videos. Based on my clinical judgement, these images were adequate and did not necessitate further imaging. Critical Care Critical Care Time Critical Care Time: No
[2023-08-23] MEDS: ONDANSETRON 4MG/2ML VIAL 4 MG IV (20:50)
[2023-08-23] MEDS: diphenhydrAMINE 50MG/ML VIAL 25 MG IV (20:50)
[2023-08-23] MEDS: LACTATED RINGERS 1000ML 1,000 ML 999 ML IV (20:50)
[2023-08-23] MEDS: METOCLOPRAMIDE HCL 10MG/2ML VIAL 5 MG IVP (20:50)
[2023-08-23 21:00] LABS: Basophils % 0.2 % (0.1-2.0); Eosinophils # 0.1 K/mm3 (0.0-0.4); Eosinophils % 0.8 % (0.1-12.0); Hematocrit 38.2 % (37.0-47.0); Hemoglobin 13.3 g/dL (12.2-16.2); Lymphocytes # 0.7 K/mm3 (0.7-4.5); Lymphocytes % 5.4 % (10-50); Mean Corpuscular HGB Conc 34.8 g/dL (31.8-35.4); Mean Corpuscular Hemoglobin 28.7 pg (27.0-31.2); Mean Corpuscular Volume 82.5 fl (81-99); Mean Platelet Volume 8.1 fl (7.4-10.4); Monocytes # 0.2 K/mm3 (0.1-1.0); Monocytes % 1.7 % (1.7-9.3); Neutrophils # 12.4 K/mm3 (1.8-7.8); Neutrophils % 91.8 % (37.0-80.0); Platelet Count 188 K/mm3 (142-424); Red Blood Count 4.63 M/mm3 (4.20-5.40); Red Cell Distribution Width 13.4 % (11.5-17.5); White Blood Count 13.5 K/mm3 (4.8-10.8)
[2023-08-23 21:03] LABS: MANUAL DIFFERENTIAL MANUAL DIFFERENTIAL (MANUAL DIFF)
[2023-08-23 21:11] LABS: Alanine Aminotransferase 25 U/L (12-78); Albumin Level 4.3 g/dl (3.5-5.0); Albumin/Globulin Ratio 1.3 (1.1-1.8); Alkaline Phosphatase 67 U/L (38-126); Anion Gap 12.8 mEq/L (5-15); Aspartate Amino Transferase 32 U/L (14-36); Bilirubin,Total 0.9 mg/dl (0.2-1.3); Blood Urea Nitrogen 6 mg/dl (7-17); Calcium 9.2 mg/dl (8.4-10.2); Carbon Dioxide 24 mmol/L (22.0-30.0); Chloride 103 mmol/L (98-107); Creatinine Clearance Estimated 178 mL/min (50-200); Estimated Glomerular Filt Rate 124 ml/min (>60); GFR (African American) 150 ML/MIN (>60); Globulin 3.2 g/dL (1.3-3.2); Glucose 103 mg/dl (74-100); Potassium 3.8 mmoL/L (3.5-5.1); Sodium 136 mmol/L (136-145); Total Protein,Serum 7.5 g/dl (6.3-8.2)
[2023-08-23 21:35] LABS: Lymphocytes % 8 % (10-50); Monocytes % 2 % (2-9); Neutrophils % 90 % (42-76); Platelet Estimate Normal; Total Cells Counted 100
[2023-08-23 21:36] LABS: RBC Morphology Normal
[2023-08-23 21:50] VITALS: BP 130/76; PULSE 82; RESP 20; TEMP 36.7
== END 2023-08-23 22:46 | disposition home or self-care (01) ==
PROVIDERS: Emergency Provider Student in an Organized Health Care Education/Training Program; PCP Internal Medicine Adolescent Medicine
DX: O21.9 Vomiting of pregnancy, unspecified (principal); O26.891 Other specified pregnancy related conditions, first trimester; O99.511 Diseases of the respiratory system complicating pregnancy, first trimester; O99.331 Smoking (tobacco) complicating pregnancy, first trimester; O30.009 Twin pregnancy, unspecified number of placenta and unspecified number of amniotic sacs, unspecified trimester; R53.1 Weakness; J45.909 Unspecified asthma, uncomplicated; F17.210 Nicotine dependence, cigarettes, uncomplicated; Z3A.11 11 weeks gestation of pregnancy
CPT/HCPCS: 80053; 85007; 85025; 96374; 96375; 99284; J2405

== ENCOUNTER 2023-10-15 12:45 | Emergency (ER) | payer OTHER, SELFPAY ==
[2023-10-15 12:55] VITALS: BP 156/71; PULSE 77; RESP 18; TEMP 36.9; O2SAT 96; BMI 30.4
--- NOTE | 2023-10-15 12:59 | ED_ITS ---
Discharge Plan Disposition Patient Disposition: Home, Self-Care Chief Complaint: OB/Uterine Contractions Prescriptions Prescriptions: No Action hydroxyzine HCl 25 mg tablet 25 mg PO PRN Patient Comments: TAKE 1 TABLET BY MOUTH EVERY 6 HOURS NEEDED FOR ITCHING escitalopram oxalate 10 mg tablet 10 mg PO DAILY Patient Comments: TAKE 1 TABLET BY MOUTH DAILY pantoprazole 40 mg tablet,delayed release (DR/EC) 40 mg PO DAILY Patient Comments: TAKE 1 TABLET BY MOUTH EVERY MORNING Bonjesta 20-20 mg tablet,IR,delayed rel,biphasic 1 tab PO BID Patient Comments: TAKE 1 TABLET BY MOUTH EVERY 12 HOURS diphenhydramine HCl [EZ Nite Sleep] 25 mg capsule 25 mg PO HS PRN promethazine [Promethegan] 12.5 mg suppository 12.5 mg [place] Q8HP PRN (Reason: Nausea And Vomiting) ondansetron 4 mg tablet,disintegrating 4 mg PO Q6HP PRN (Reason: Nausea And Vomiting) Patient Comments: DISSOLVE 1 TABLET ON THE TONGUE EVERY 6 HOURS FOR 5 DAYS NEEDED FOR NAUSEA OR VOMITING fluticasone propionate 50 mcg/actuation spray,suspension 1 spray INTRANASAL DAILY Patient Comments: SHAKE LIQUID AND USE 1 SPRAY IN EACH NOSTRIL EVERY DAY metoclopramide HCl 10 mg tablet 10 mg PO Q6HP PRN (Reason: Nausea And Vomiting) Patient Comments: TAKE 1 TABLET BY MOUTH EVERY 6 HOURS NEEDED FOR NAUSEA OR VOMITING Referrals Follow up/Referrals: Ravi Askew MD [Primary Care Provider] - See instructions Activity Restrictions/Add. Instructions Additional Instructions/Restrictions: Call your BUSINESS SERVICES VICE PRESIDENT to set up follow-up. You can buy a Doppler online for pretty cheap, this will help provide reassurance. If you have any other concerning signs or symptoms, you can return to the emergency department or OB triage for further evaluation. Talk to your BUSINESS SERVICES VICE PRESIDENT or family doctor about blood pressure control in as well to make sure you are not hypertensive through the process. Clinical Impressions Clinical Impression: Twin Qualifiers: Multiple gestation type: dichorionic and diamniotic Trimester: second trimester Qualified Code(s): O30.042 - Twin , dichorionic/diamniotic, second trimester Discharge ED Provider: Ayaz Faith General Adult HPI General Chief complaint: OB/Uterine Contractions Stated complaint: 18 weeks antepartum twins, no movement Time Seen by Provider: 10/15/23 12:47 Mode of Arrival: Ambulatory Source of Information: Patient Limitations: No Limitations Description of Symptoms (Recalled from ER Triage Doc. by RN): unable to feel movement. twins History of Present Illness HPI narrative: 22-year-old female who is 18 weeks with twins presenting for concern for decreased movement. Patient states that she has felt them move a couple of times over the past couple weeks, has not felt anything in a while, coming in for reassurance. No vaginal discharge or bleeding, fevers or chills, urinary symptoms, gushes of fluid, or any other concerns. Related Data Home Medications Medication Instructions Recorded Confirmed fluticasone propionate 50 1 spray intranasal DAILY 08/12/23 08/12/23 mcg/actuation nasal spray,suspension metoclopramide HCl 10 mg tablet 10 mg PO Q6HP PRN Nausea And 08/12/23 08/12/23 Vomiting ondansetron 4 mg disintegrating 4 mg PO Q6HP PRN Nausea And 08/12/23 08/12/23 tablet Vomiting promethazine 12.5 mg rectal 12.5 mg [place] Q8HP PRN Nausea And 08/12/23 08/12/23 suppository (Promethegan) Vomiting diphenhydramine HCl 25 mg capsule 25 mg PO HS PRN 10/01/23 10/01/23 (EZ Nite Sleep) doxylamine 20 mg-pyridoxine 20 mg 1 tab PO BID 10/01/23 10/01/23 tablet,immediate and delayed release (Bonjesta) escitalopram oxalate 10 mg tablet 10 mg PO DAILY 10/01/23 10/01/23 hydroxyzine HCl 25 mg tablet 25 mg PO PRN 10/01/23 10/01/23 pantoprazole 40 mg tablet,delayed 40 mg PO DAILY 10/01/23 10/01/23 release Allergies Allergy/AdvReac Type Severity Reaction Status Date / Time No Known Allergies Allergy Verified 10/01/23 09:32 [facility] Disclaimer: The information contained in this section may have been updated after the patient was seen, as this information can be updated by other users. Medical History (Updated 10/15/23 @ 13:04 by Ayaz Faith MD) Twin gestation in second trimester Asthma Surgical History No history of previous surgery Family History Other No significant family history Social History Smoking Status: Former smoker tobacco type: cigarettes packs per day: 1 alcohol intake: never substance use type: denies use current occupational status: employed Travel in the last 8 weeks: None household members: family housing: house ROS Obtained: Yes All systems reviewed & no additional complaints except as documented Physical Exam General General appearance: alert and in no apparent distress Head Head exam: atraumatic and normocephalic Eye Eye exam: Present normal appearance, PERRL and EOMI ENT ENT exam: Present mucous membranes moist Neck Neck exam: Present normal inspection, full ROM and trachea midline Respiratory Respiratory exam: Absent respiratory distress, wheezes, stridor, accessory muscle use or prolonged expiratory phase Cardiovascular Cardiovascular exam: Present normal rhythm Abdominal Exam Abdominal exam: Present soft; Absent distention, tenderness, guarding, rebound or rigidity Extremities Exam Extremities exam: Absent edema Neurological Exam Neurological exam: Present alert, oriented X3, CN II-XII intact and normal gait; Absent motor sensory deficit Skin Skin exam: Present warm and dry; Absent diaphoresis or erythema Medical Decision Making Medical Records Medical records reviewed: Yes I reviewed the patient's medical records. Vivek Inquiry Pt receiving controlled substance: No Vivek was queried for this patient: No Vital Signs: 10/15/23 12:55 Temperature 98.5 F Temperature Source Oral Pulse Rate [Right] 77 Respiratory Rate 18 Blood Pressure [Right Arm] 156/71 H Blood Pressure Mean [Right Arm] 99 02 Sat by Pulse Oximetry 96 Oxygen Delivery Method Room Air Orders (Tests/Meds): ORDERS Category Date Time Status POCUS Point of Care (ER Only) Stat Exams 10/15/23 12:48 Ordered Medical Decision Narrative: 22-year-old female who is 18 weeks with twins presenting for concern for decreased movement. Patient states that she has felt them move a couple of times over the past couple weeks, has not felt anything in a while, coming in for reassurance. No vaginal discharge or bleeding, fevers or chills, urinary symptoms, gushes of fluid, or any other concerns. History obtained with patient. On physical exam, patient hemodynamically stable, mildly hypertensive 156/71, but well-appearing. Bedside [id number] ultrasound personally performed and independently interpreted. Diamniotic, dichorionic twins with heart rates 143 and 146. Good movements and no evidence of abnormality. Amniotic fluid index grossly normal. Because patient at baseline without signs or symptoms of clinical decompensation, deemed appropriate for discharge. Results were relayed to patient who voiced understanding and were agreeable to outpatient management and follow up. I discussed my clinical impression with patient and answered all questions. At this time, the evidence for any other entities in the differential is insufficient to warrant any further testing or ED observation. This was explained as well. Advisory was given that persistent or worsening symptoms require further evaluation. I confirmed the understanding of this discussion. Procedures Limited Ultrasound Indication:: Limited OB ultrasound Indication: movement Identified structures: Uterus Findings: Uterus: Twin IUP FHR: 143, 146 Right adnexa: -Normal Left adnexa: -Normal Cul de sac: -free fluid absent Impression: -IUP: Present x2 - heart rate: 143, 146 -Ectopic : Absent -Free fluid: Absent Images were saved to permanent archive The study was technically adequate CPT Transabdominal: 94675-26 This study was performed by me, and I personally interpreted all images/videos. Based on my clinical judgement, these images were adequate and did not necessitate further imaging. Critical Care Critical Care Time Critical Care Time: No
[2023-10-15 13:13] VITALS: BP 156/71; PULSE 80; RESP 18; TEMP 36.9; O2SAT 98
== END 2023-10-15 13:17 | disposition home or self-care (01) ==
PROVIDERS: Emergency Provider Emergency Medicine; PCP Internal Medicine Adolescent Medicine
DX: O36.8120 Decreased fetal movements, second trimester, not applicable or unspecified (principal); O30.042 Twin pregnancy, dichorionic/diamniotic, second trimester; O99.512 Diseases of the respiratory system complicating pregnancy, second trimester; J45.909 Unspecified asthma, uncomplicated; Z87.891 Personal history of nicotine dependence; Z3A.18 18 weeks gestation of pregnancy
CPT/HCPCS: 99284

== ENCOUNTER 2023-11-09 12:29 | Emergency (ER) | payer OTHER, SELFPAY ==
[2023-11-09 12:30] VITALS: BP 128/91; PULSE 83; RESP 14; TEMP 36.8; O2SAT 99; BMI 25.0
--- NOTE | 2023-11-09 12:34 | HMH.EDGENADL ---
Discharge Plan Disposition Patient Disposition: Home, Self-Care Condition: Fair Prescriptions Prescriptions: New metoclopramide HCl [Reglan] 10 mg tablet 10 mg PO Q6H PRN (Reason: nausea and vomiting) 7 Days Qty: 28 0RF No Action hydroxyzine HCl 25 mg tablet 25 mg PO PRN Patient Comments: TAKE 1 TABLET BY MOUTH EVERY 6 HOURS NEEDED FOR ITCHING escitalopram oxalate 10 mg tablet 10 mg PO DAILY Patient Comments: TAKE 1 TABLET BY MOUTH DAILY pantoprazole 40 mg tablet,delayed release (DR/EC) 40 mg PO DAILY Patient Comments: TAKE 1 TABLET BY MOUTH EVERY MORNING Bonjesta 20-20 mg tablet,IR,delayed rel,biphasic 1 tab PO BID Patient Comments: TAKE 1 TABLET BY MOUTH EVERY 12 HOURS diphenhydramine HCl [EZ Nite Sleep] 25 mg capsule 25 mg PO HS PRN promethazine [Promethegan] 12.5 mg suppository 12.5 mg [place] Q8HP PRN (Reason: Nausea And Vomiting) ondansetron 4 mg tablet,disintegrating 4 mg PO Q6HP PRN (Reason: Nausea And Vomiting) Patient Comments: DISSOLVE 1 TABLET ON THE TONGUE EVERY 6 HOURS FOR 5 DAYS NEEDED FOR NAUSEA OR VOMITING fluticasone propionate 50 mcg/actuation spray,suspension 1 spray INTRANASAL DAILY Patient Comments: SHAKE LIQUID AND USE 1 SPRAY IN EACH NOSTRIL EVERY DAY metoclopramide HCl 10 mg tablet 10 mg PO Q6HP PRN (Reason: Nausea And Vomiting) Patient Comments: TAKE 1 TABLET BY MOUTH EVERY 6 HOURS NEEDED FOR NAUSEA OR VOMITING Referrals Follow up/Referrals: Ravi Askew MD [Primary Care Provider] - See instructions Activity Restrictions/Add. Instructions Additional Instructions/Restrictions: You have been evaluated in the ED for your complaints. You may follow-up with your PCP in the next 3 to 5 days. Please return to ED for any new or worsening symptoms. I have written prescription for Reglan as you have stated that this medication works well for you at home with your nausea and vomiting. Please take this as needed. Clinical Impressions Clinical Impression: Nausea & vomiting, Nausea and vomiting during Instructions Patient Instructions: DI for Diarrhea and Traveler's Diarrhea -- Adult, DI for Diarrhea and Traveler's Diarrhea -- Child, DI for Nausea -- Adult, DI for Nausea -- Child Discharge ED Provider: Herbert Clark General Adult HPI General Chief complaint: Nausea/Vomiting/Diarrhea Stated complaint: vomiting 21 weeks Time Seen by Provider: 11/09/23 12:31 History of Present Illness HPI narrative: 22-year-old female currently 21 weeks gestation, history of hyperemesis gravidarum, asthma, anxiety, cannabis hyperemesis syndrome, presents today for evaluation concerning multiple episodes of nausea and vomiting onset last night. She also endorses significant abdominal pain. Has not had any fevers, chills, chest pain, shortness of breath, dysuria, hematuria. No further complaints. Related Data Home Medications Medication Instructions Recorded Confirmed fluticasone propionate 50 1 spray intranasal DAILY 08/12/23 08/12/23 mcg/actuation nasal spray,suspension metoclopramide HCl 10 mg tablet 10 mg PO Q6HP PRN Nausea And 08/12/23 08/12/23 Vomiting ondansetron 4 mg disintegrating 4 mg PO Q6HP PRN Nausea And 08/12/23 08/12/23 tablet Vomiting promethazine 12.5 mg rectal 12.5 mg [place] Q8HP PRN Nausea And 08/12/23 08/12/23 suppository (Promethegan) Vomiting diphenhydramine HCl 25 mg capsule 25 mg PO HS PRN 10/01/23 10/01/23 (EZ Nite Sleep) doxylamine 20 mg-pyridoxine 20 mg 1 tab PO BID 10/01/23 10/01/23 tablet,immediate and delayed release (Bonjesta) escitalopram oxalate 10 mg tablet 10 mg PO DAILY 10/01/23 10/01/23 hydroxyzine HCl 25 mg tablet 25 mg PO PRN 10/01/23 10/01/23 pantoprazole 40 mg tablet,delayed 40 mg PO DAILY 10/01/23 10/01/23 release Previous Rx's Medication Instructions Recorded metoclopramide HCl 10 mg tablet 10 mg PO Q6H PRN nausea and 11/09/23 (Reglan) vomiting 7 days #28 tabs Allergies Allergy/AdvReac Type Severity Reaction Status Date / Time No Known Allergies Allergy Verified 10/01/23 09:[address] [facility] Disclaimer: The information contained in this section may have been updated after the patient was seen, as this information can be updated by other users. Medical History (Updated 11/09/23 @ 15:29 by Herbert Clark DO) Twin gestation in second trimester Asthma Surgical History No history of previous surgery Family History Other No significant family history Social History Smoking Status: Never smoker alcohol intake: never substance use type: denies use current occupational status: employed Travel in the last 8 weeks: None household members: family housing: house ROS Obtained: Yes All systems reviewed & no additional complaints except as documented Physical Exam General General appearance: alert and in distress Head Head exam: atraumatic and normocephalic Eye Eye exam: Present normal appearance, PERRL and EOMI ENT ENT exam: Present normal oropharynx and mucous membranes moist Neck Neck exam: Present full ROM; Absent meningismus Respiratory Respiratory exam: Absent respiratory distress, wheezes, stridor or accessory muscle use Cardiovascular Cardiovascular exam: Present normal rhythm Abdominal Exam Abdominal exam: Present soft and tenderness (Generalized); Absent distention, guarding, rebound or rigidity Neurological Exam Neurological exam: Present alert, oriented X3 and CN II-XII intact; Absent motor sensory deficit Psychiatric Psychiatric exam: Present normal affect and normal mood Skin Skin exam: Present warm and dry Medical Decision Making Medical Records Medical records reviewed: Yes I reviewed the patient's medical records. Vivek Inquiry Pt receiving controlled substance: No Vivek was queried for this patient: No Vital Signs: 11/09/23 12:30 11/09/23 14:10 11/09/23 14:37 Temperature 98.2 F Temperature Source Oral Pulse Rate 57 L 58 L Pulse Rate [Left Radial] 83 Respiratory Rate 14 Blood Pressure 128/91 H 148/67 H Blood Pressure [Right Arm] 128/91 H Blood Pressure Mean [Right Arm] 103 02 Sat by Pulse Oximetry 99 94 L 94 L Oxygen Delivery Method Room Air Room Air Lab Data Lab Results 11/09/23 12:36: Urine Color Yellow, Urine Appearance Clear, Urine pH 6.5, Ur Specific [place] >= 1.030, Urine Protein 3+, Urine Glucose (UA) Negative, Urine Ketones 3+, Urine Blood Negative, Urine Nitrate Negative, Urine Bilirubin Negative, Urine Urobilinogen 1.0, Ur Leukocyte Esterase Trace, Urine RBC None, Urine WBC Occasional, Ur Squamous Epith Cells 3-5, Urine Bacteria Trace 11/09/23 12:53: WBC 16.1 H, RBC 4.82, Hgb 13.6, Hct 41.7, MCV 86.5, MCH 28.2, MCHC 32.6, RDW 13.3, Plt Count 254, MPV 8.0, Neut % (Auto) 86.0 H, Lymph % (Auto) 10.3, Rice % (Auto) 2.6, Eos % (Auto) 0.0 L, Baso % (Auto) 1.1, Neut # (Auto) 13.8 H, Lymph # (Auto) 1.7, Rice # (Auto) 0.4, Eos # (Auto) 0.0, Baso # (Auto) 0.2, Total Counted 100, Neutrophils % (Manual) 86 H, Lymphocytes % (Manual) 13, Monocytes % (Manual) 1 L, Platelet Estimate Normal, RBC Morphology Normal, Sodium 139, Potassium 3.8, Chloride 106, Carbon Dioxide 25, Anion Gap 11.8, BUN 7, Creatinine 0.60, Estimated Creat Clear 157, Estimated GFR 124, Est GFR ( Amer) 150, Glucose 115 H, Lactate 1.7, Calcium 9.7, Total Bilirubin 0.9, AST 35, ALT 26, Alkaline Phosphatase 96, Total Protein 7.8, Albumin 4.2, Globulin 3.6 H, Albumin/Globulin Ratio 1.2, Lipase 34, HCG, Quant [id number] H 11/09/23 12:53 11/09/23 12:53 Orders (Tests/Meds): ED MEDICATIONS Discontinued Medications Generic Name Dose Route Start Last Admin Trade Name Freq PRN Reason Stop Dose Admin Lactated Ringer's 1,000 mls @ 999 mls/hr 11/09/23 12:32 11/09/23 12:55 Lactated Ringer's 1000 Ml Bag IV 11/09/23 13:32 999 mls/hr .Q1H1M ONE Administration Morphine Sulfate 4 mg 11/09/23 12:32 11/09/23 12:55 Morphine 4mg/Ml Syringe IV 11/09/23 12:33 4 mg ONCE ONE Administration Ondansetron HCl 4 mg 11/09/23 12:32 11/09/23 12:55 Ondansetron 4mg/2ml Vial IV 11/09/23 12:33 4 mg ONCE ONE Administration Promethazine HCl 25 mg 11/09/23 14:02 11/09/23 14:05 Promethazine Hcl 25mg/Ml 1ml Vial IV 11/09/23 14:03 25 mg ONCE ONE Administration Sodium Chloride 25 ml 11/09/23 14:02 11/09/23 14:05 Sodium Chloride 0.9% 25ml Bag IV 11/09/23 14:03 25 ml ONCE ONE Administration ORDERS Category Date Time Status Beta HCG, Quant [HCG,Quantitative] Stat Lab 11/09/23 12:53 Completed CBC w/Auto Diff [Complete Blood Count Auto Diff] Stat Lab 11/09/23 12:53 Completed CMP [Comprehensive Metabolic Panel] Stat Lab 11/09/23 12:53 Completed Lactic Acid Stat Lab 11/09/23 12:53 Completed Lipase Stat Lab 11/09/23 12:53 Completed Urinalysis and Microscopic Stat Lab 11/09/23 12:36 Completed US OB >= 14 wk fetus mult gest Stat Ultrasound 11/09/23 13:06 Completed Medical Decision Narrative: 22-year-old female currently 21 weeks gestation, history of hyperemesis gravidarum, asthma, anxiety, cannabis hyperemesis syndrome, presents today for evaluation concerning multiple episodes of nausea and vomiting onset last night. She also endorses generalized abdominal pain. Denies having any fevers, chills, chest pain, shortness of breath. On assessment, she was hemodynamically stable. Actively vomiting and distress. Her abdomen was soft and nondistended however was generally tender to palpation. She was afebrile. Physical exam findings unremarkable. Differential diagnoses include but limited to hyperemesis gravidarum, gastritis, gastroenteritis, viral syndrome, pancreatitis, among others. Patient's lab workup today is remarkable for a WBC of 16.1. Beta hCG quant of 12,982. Urinalysis with no UTI. No electrolyte derangements. Did order for OB ultrasound and it revealed twin , fetus a with a heart rate of 139, fetus B with heart rate of 135. Other labs were nonactionable. On reassessment she remains medically stable and in no acute distress. Pain is improved after morphine and nausea and vomiting improved after Zofran and Phenergan. She is also received IV fluids. I discussed ED workup results and current plan to discharge. She states that she has rectal Reglan at home however she is out of her oral Reglan which works better for her nausea and vomiting during the day. I will send prescription for Reglan to further assist at home. I provided her with return ED precautions and instructions concerning CAPACITY PLANNING ANALYST follow-up in the setting of her . She verbalized understanding and agreement with plan. She was subsequently able to be discharged home hemodynamically stable and in no acute distress. She was able to tolerate oral intake Critical Care Critical Care Time Critical Care Time: No
[2023-11-09 12:41] LABS: Microscopic, Urine URINE MICROSCOPIC (MICROSCOPIC)
[2023-11-09 12:43] LABS: Appearance,Urine CLEAR (Clear); Bilirubin,Urine Negative (Negative); Blood, Urine Negative (Negative); Color,Urine YELLOW (Yellow); Glucose,Urine (UA) Negative (Negative); Ketones,Urine 3+ (Negative); Leukocyte Esterase,Urine TRACE (Negative); Nitrate,Urine Negative (Negative); PH,Urine 6.5 (5.0-8.5); Protein,Urine 3+ (Negative); Specific Gravity, Urine >= 1.030 (1.005-1.030)
[2023-11-09] MEDS: LACTATED RINGERS 1000ML 1,000 ML 999 ML IV (12:55)
[2023-11-09] MEDS: MORPHINE 4MG/ML SYRINGE 4 MG IV (12:55)
[2023-11-09] MEDS: ONDANSETRON 4MG/2ML VIAL 4 MG IV (12:55)
[2023-11-09 13:00] LABS: Bacteria,Urine Trace /lpf; WBC,Urine Occasional #/hpf (0-3)
--- NOTE | 2023-11-09 13:06 | US_ITS ---
PROCEDURE INFORMATION: Exam: US After First Trimester, Transabdominal. Additional Gestation Exam date and time: 11/09/2023 1:23 PM Age: 22 years old Clinical indication: Other: Abdominal pain; Gestational age or lmp: 21 weeks; ; Additional info: 21 wk with twins, abd pain w n/v/d LABS AND CLINICAL REPORTS: Gestational age (Established): 21 w 3 d Estimated due date (Established): 03/18/2024 TECHNIQUE: Imaging protocol: Real-time transabdominal obstetrical ultrasound of the maternal pelvis and a second or third trimester with image documentation. Additional Gestation was evaluated. COMPARISON: US OB TRANSVAGINAL 08/20/2023 12:31 PM FINDINGS: Number of fetuses: 2 Gestation: There is a twin . heart rate: Twin a is breech presentation. heart rate is 139 bpm. Twin B is in cephalic presentation with heart rate of 135 bpm. Placenta: Unremarkable. No subchorionic bleed. Placenta is location. Amniotic fluid: Amniotic fluid is normal for gestational age. IMPRESSION: Twin gestation, both of which have heart rate.
[2023-11-09 13:09] LABS: Basophils # 0.2 K/mm3 (0-0.2); Basophils % 1.1 % (0.1-2.0); Hematocrit 41.7 % (37.0-47.0); Hemoglobin 13.6 g/dL (12.2-16.2); Lymphocytes # 1.7 K/mm3 (0.7-4.5); Lymphocytes % 10.3 % (10-50); Mean Corpuscular HGB Conc 32.6 g/dL (31.8-35.4); Mean Corpuscular Hemoglobin 28.2 pg (27.0-31.2); Mean Corpuscular Volume 86.5 fl (81-99); Monocytes # 0.4 K/mm3 (0.1-1.0); Monocytes % 2.6 % (1.7-9.3); Neutrophils # 13.8 K/mm3 (1.8-7.8); Platelet Count 254 K/mm3 (142-424); Red Blood Count 4.82 M/mm3 (4.20-5.40); Red Cell Distribution Width 13.3 % (11.5-17.5); White Blood Count 16.1 K/mm3 (4.8-10.8)
[2023-11-09 13:10] LABS: Chloride 106 mmol/L (98-107)
[2023-11-09 13:11] LABS: MANUAL DIFFERENTIAL MANUAL DIFFERENTIAL (MANUAL DIFF); Potassium 3.8 mmoL/L (3.5-5.1); Sodium 139 mmol/L (136-145)
[2023-11-09 13:13] LABS: Alanine Aminotransferase 26 U/L (12-78); Alkaline Phosphatase 96 U/L (38-126); Aspartate Amino Transferase 35 U/L (14-36); Bilirubin,Total 0.9 mg/dl (0.2-1.3); Blood Urea Nitrogen 7 mg/dl (7-17); Creatinine Clearance Estimated 157 mL/min (50-200); Estimated Glomerular Filt Rate 124 ml/min (>60); GFR (African American) 150 ML/MIN (>60); Lactic Acid 1.7 mmol/L (0.7-2.1)
[2023-11-09 13:14] LABS: Albumin Level 4.2 g/dl (3.5-5.0); Albumin/Globulin Ratio 1.2 (1.1-1.8); Anion Gap 11.8 mEq/L (5-15); Calcium 9.7 mg/dl (8.4-10.2); Carbon Dioxide 25 mmol/L (22.0-30.0); Globulin 3.6 g/dL (1.3-3.2); Glucose 115 mg/dl (74-100); Lipase 34 U/L (23-300); Total Protein,Serum 7.8 g/dl (6.3-8.2)
--- NOTE | 2023-11-09 13:16 | PC.NURSE ---
Pt gone to RAD for u/s
[2023-11-09 13:31] LABS: HCG,Quantitative 12982 mIU/ml (0-5.42)
--- NOTE | 2023-11-09 13:36 | PC.NURSE ---
Rounded on pt to see if they had any needs. no needs at this time
--- NOTE | 2023-11-09 13:56 | PC.NURSE ---
pt returned from ultrasound, per tech 2 fetuses are seen WNL, only other finding was gall stones
[2023-11-09] MEDS: SODIUM CHLORIDE 0.9% 25ML BAG 25 ML IV (14:05)
[2023-11-09] MEDS: PROMETHAZINE HCL 25MG/ML 1ML VIAL 25 MG IV (14:05)
[2023-11-09 14:10] VITALS: BP 128/91; PULSE 57; O2SAT 94
[2023-11-09 14:37] VITALS: BP 148/67; PULSE 58; O2SAT 94
--- NOTE | 2023-11-09 14:49 | PC.NURSE ---
Pt ambulatory to bathroom. No other needs voiced. Call light within reach
[2023-11-09 14:55] LABS: Lymphocytes % 13 % (10-50); Monocytes % 1 % (2-9); Neutrophils % 86 % (42-76); Total Cells Counted 100
[2023-11-09 14:57] LABS: Platelet Estimate Normal; RBC Morphology Normal
--- NOTE | 2023-11-09 15:25 | PC.NURSE ---
Dr. Clark at to reevaluate pt
[2023-11-09 16:16] VITALS: BP 148/67; PULSE 58; RESP 15; TEMP 36.7
== END 2023-11-09 16:17 | disposition home or self-care (01) ==
PROVIDERS: Emergency Provider Emergency Medicine; PCP Internal Medicine Adolescent Medicine
DX: O21.9 Vomiting of pregnancy, unspecified (principal); R10.9 Unspecified abdominal pain; Z3A.21 21 weeks gestation of pregnancy
CPT/HCPCS: 76810; 80053; 81001; 83605; 83690; 84702; 85007; 85025; 96361; 96374; 96375; 99285; J2405

== ENCOUNTER 2023-11-09 16:08 | Observation (INO) | payer OTHER, SELFPAY ==
[2023-11-09 16:09] VITALS: BP 136/82; PULSE 95; RESP 19; TEMP 36.7; O2SAT 99; BMI 29.2
--- NOTE | 2023-11-09 16:34 | ED_ITS ---
Discharge Plan Disposition Patient Disposition: Admitted Clinical Impressions Clinical Impression: Hyperemesis gravidarum Discharge ED Provider: Oh Zhang General Adult HPI General Chief complaint: Nausea/Vomiting/Diarrhea Stated complaint: nausea dizziness and faint Time Seen by Provider: 11/09/23 16:23 History of Present Illness HPI narrative: Patient is a 22-year-old female G3, P1 at 21 weeks gestational age currently with twins. She was in our emergency department several hours ago had a 3-hour length of stay for nausea vomiting was given IV fluids Zofran and Phenergan wished to try to go home subsequently left and has continued to vomit. She states this is her 15th ED visit during this for nausea vomiting she has had to be admitted 1 time during this hospitalization for hyperemesis. States that she weighed 217 on Thursday of this past week currently weighs 204 pounds she states she is lost 13 pounds since Thursday. She was offered admission earlier today in the emergency department but opted to try to go home now she would like to be admitted. Last admission was at [facility]. Related Data Home Medications Medication Instructions Recorded Confirmed fluticasone propionate 50 1 spray intranasal DAILY 08/12/23 08/12/23 mcg/actuation nasal spray,suspension metoclopramide HCl 10 mg tablet 10 mg PO Q6HP PRN Nausea And 08/12/23 08/12/23 Vomiting ondansetron 4 mg disintegrating 4 mg PO Q6HP PRN Nausea And 08/12/23 08/12/23 tablet Vomiting promethazine 12.5 mg rectal 12.5 mg [place] Q8HP PRN Nausea And 08/12/23 08/12/23 suppository (Promethegan) Vomiting diphenhydramine HCl 25 mg capsule 25 mg PO HS PRN 10/01/23 10/01/23 (EZ Nite Sleep) doxylamine 20 mg-pyridoxine 20 mg 1 tab PO BID 10/01/23 10/01/23 tablet,immediate and delayed release (Bonjesta) escitalopram oxalate 10 mg tablet 10 mg PO DAILY 10/01/23 10/01/23 hydroxyzine HCl 25 mg tablet 25 mg PO PRN 10/01/23 10/01/23 pantoprazole 40 mg tablet,delayed 40 mg PO DAILY 10/01/23 10/01/23 release Previous Rx's Medication Instructions Recorded metoclopramide HCl 10 mg tablet 10 mg PO Q6H PRN nausea and 11/09/23 (Reglan) vomiting 7 days #28 tabs Allergies Allergy/AdvReac Type Severity Reaction Status Date / Time No Known Allergies Allergy Verified 10/01/23 09:32 [facility] Disclaimer: The information contained in this section may have been updated after the patient was seen, as this information can be updated by other users. Medical History Twin gestation in second trimester Asthma Surgical History No history of previous surgery Family History Other No significant family history Social History Smoking Status: Unknown if ever smoked alcohol intake: never substance use type: denies use current occupational status: employed Travel in the last 8 weeks: None household members: family housing: house ROS Obtained: Yes All systems reviewed & no additional complaints except as documented Physical Exam General General appearance: in no apparent distress Respiratory Respiratory exam: Present normal lung sounds bilaterally Cardiovascular Cardiovascular exam: Present regular rate Abdominal Exam Abdominal exam: Present soft; Absent distention or tenderness Neurological Exam Neurological exam: Present alert Medical Decision Making Vivek Inquiry Pt receiving controlled substance: No Vital Signs: 11/09/23 16:09 11/09/23 17:14 Temperature 98.0 F 98.5 F Temperature Source Oral Pulse Rate 70 Pulse Rate [Right] 95 H Respiratory Rate 19 20 Blood Pressure 118/69 Blood Pressure [Right Arm] 136/82 Blood Pressure Mean [Right Arm] 100 02 Sat by Pulse Oximetry 99 Oxygen Delivery Method Room Air Room Air Orders (Tests/Meds): ED MEDICATIONS Generic Name Dose Route Start Last Admin Trade Name Freq PRN Reason Stop Dose Admin Doxylamine Succinate/Pyridoxine 1 tab 11/09/23 20:00 11/09/23 20:00 Doxylamine 10mg/Pyridoxine 10mg Tablet PO 12/09/23 19:59 1 tab QID ORALIA Administration Dextrose/Lactated Ringer's 1,000 mls @ 125 mls/hr 11/09/23 18:00 11/09/23 18:08 Dextrose 5% In Lactated Ringer's 1000ml IV 12/09/23 17:59 125 mls/hr .Q8H ORALIA Administration Sodium Chloride 25 mls @ 100 mls/hr 11/09/23 19:05 Sod Chlor 0.9% 25ml Bag IV 12/09/23 19:04 Q6HP PRN PHENERGAN INFUSION Multivitamins 10 ml/ Thiamine 1,015 mls @ 125 mls/hr 11/09/23 20:00 11/09/23 20:00 HCl 100 mg/ Magnesium Sulfate IV 12/09/23 19:59 125 mls/hr 2 gm/ Lactated Ringer's DAILY ORALIA Administration Promethazine HCl 12.5 mg 11/09/23 17:54 11/09/23 18:52 Promethazine Hcl 25mg/Ml 1ml Vial IV 12/09/23 17:53 12.5 mg Q6HP PRN Administration Nausea And Vomiting Discontinued Medications Generic Name Dose Route Start Last Admin Trade Name Freq PRN Reason Stop Dose Admin Dextrose/Lactated Ringer's 1,000 mls @ 250 mls/hr 11/09/23 16:45 Dextrose 5% In Lactated Ringer's 1000ml IV 12/09/23 16:44 .Q4H ORALIA Dextrose/Lactated Ringer's 1,000 mls @ 250 mls/hr 11/09/23 17:41 11/09/23 18:58 Dextrose 5% In Lactated Ringer's 1000ml IV 12/09/23 16:44 Not Given .Q4H ORALIA Metoclopramide HCl 10 mg 11/09/23 16:31 Metoclopramide Hcl 10mg/2ml Vial IVP 11/09/23 16:32 ONCE ONE Metoclopramide HCl 10 mg 11/09/23 17:41 Metoclopramide Hcl 10mg/2ml Vial IVP 11/09/23 17:42 ONCE ONE Ondansetron HCl 4 mg 11/09/23 16:31 11/09/23 18:58 Ondansetron 4mg/2ml Vial IV 11/09/23 16:32 Not Given ONCE ONE Ondansetron HCl 4 mg 11/09/23 17:41 11/09/23 18:09 Ondansetron 4mg/2ml Vial IV 11/09/23 17:42 4 mg ONCE ONE Administration Medical Decision Narrative: Patient is a 22-year-old female with 15 ED visits for nausea and vomiting. I have seen her numerous times prior for hyperemesis associated with cannabinol leads and she continues to have significant nausea vomiting during this has recently lost 13 pounds. She had aggressive therapy earlier today and attempted to go home but this was unsuccessful. D5 LR Zofran and Reglan have now been added and she will be admitted for further evaluation and management till symptoms are adequately controlled. 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 Dr. Smith agreed to admit the patient for further management. Critical Care Critical Care Time Critical Care Time: No
--- NOTE | 2023-11-09 16:36 | PC.NURSE ---
paged Dr. Gilmore (on-call OBGYN)
--- NOTE | 2023-11-09 16:37 | PC.NURSE ---
Dr. Zhang s/w Dr. Warren Gilmore
--- NOTE | 2023-11-09 16:40 | PC.NURSE ---
Dr. Gilmore agrees to accept pt to OB dept for HG. business supervisor notified for bed request
[2023-11-09 16:41] VITALS: BMI 30.1
--- NOTE | 2023-11-09 17:12 | PC.NURSE ---
Called report to Aida JO on OB and answered all questions
[2023-11-09 17:14] VITALS: BP 118/69; PULSE 70; RESP 20; TEMP 36.9; O2SAT 98
--- NOTE | 2023-11-09 17:38 | PC.NURSE ---
OB staff here to collect pt via wheelchair
[2023-11-09 17:40] VITALS: BMI 30.1
[2023-11-09] MEDS: DEXTROSE 5%-LACTATED RINGERS 1,000 ML 125 ML IV (18:08)
[2023-11-09] MEDS: ONDANSETRON 4MG/2ML VIAL 4 MG IV (18:09)
--- NOTE | 2023-11-09 18:25 | PC.NURSE ---
BABY A 152 BABY B 148
[2023-11-09 18:31] VITALS: BP 118/59; PULSE 71; RESP 18; TEMP 36.9; O2SAT 96; BMI 30.1
[2023-11-09] MEDS: PROMETHAZINE HCL 25MG/ML 1ML VIAL 12.5 MG IV (18:52)
[2023-11-09] MEDS: DOXYLAMINE 10MG/PYRIDOXINE 10MG TABLET 1 TAB PO (20:00)
[2023-11-09] MEDS: MVI, ADULT NO.1 WITH VIT K 10 ML, THIAMINE HCL 100 MG, MAGNESIUM SULFATE 2 GM in LACTAT... 125 ML IV (20:00)
[2023-11-09 20:13] VITALS: O2SAT 100
[2023-11-09 20:16] VITALS: BP 130/53; PULSE 74; RESP 18; TEMP 36.4; O2SAT 100
--- NOTE | 2023-11-09 20:16 | PC.NURSE ---
FHRs noted at 148 and 132.
[2023-11-10] MEDS: PROMETHAZINE HCL 25MG/ML 1ML VIAL 12.5 MG IV ×3 (00:02→14:14)
[2023-11-10 04:27] VITALS: BP 105/48; PULSE 67; RESP 18; TEMP 36.6; O2SAT 98
[2023-11-10] MEDS: 0.9 % SODIUM CHLORIDE 25 ML 100 ML IV ×2 (07:34→14:14)
[2023-11-10] MEDS: MVI, ADULT NO.1 WITH VIT K 10 ML, THIAMINE HCL 100 MG, MAGNESIUM SULFATE 2 GM in LACTAT... 125 ML IV (08:05)
[2023-11-10 08:15] VITALS: BP 117/48; PULSE 74; RESP 16; TEMP 36.5; O2SAT 99
[2023-11-10] MEDS: DOXYLAMINE 10MG/PYRIDOXINE 10MG TABLET 1 TAB PO ×2 (08:16→13:22)
--- NOTE | 2023-11-10 09:01 | EXP.HP ---
History of Present Illness *Admission Date: 11/09/23 *Reason for visit:: Hyperemesis, twins *History of present illness: Patient is a 22-year-old female G3, P1 at 21 weeks gestational age currently with twins. She was in our emergency department several hours ago had a 3-hour length of stay for nausea vomiting was given IV fluids Zofran and Phenergan wished to try to go home subsequently left and has continued to vomit. She states this is her 15th ED visit during this for nausea vomiting she has had to be admitted 1 time during this hospitalization for hyperemesis. States that she weighed 217 on Thursday of this past week currently weighs 204 pounds she states she is lost 13 pounds since Thursday. She was offered admission earlier today in the emergency department but opted to try to go home now she would like to be admitted. Last admission was at [facility]. [facility] Disclaimer: The information contained in this section may have been updated after the patient was seen, as this information can be updated by other users. Medical History Twin gestation in second trimester Asthma Surgical History No history of previous surgery Family History No significant family history Social History Smoking Status: Unknown if ever smoked alcohol intake: never substance use type: denies use current occupational status: employed Travel in the last 8 weeks: None household members: family housing: house Review of Systems Review of Systems Review of systems:: pertinent systems reviewed and negative unless documented below Meds Home Medications and Allergies Home Medications Medication Instructions Recorded Confirmed Type metoclopramide HCl 10 mg tablet 10 mg PO TIDWMEAL Nausea And 08/12/23 11/10/23 History Vomiting ondansetron 4 mg disintegrating 4 mg PO TIDP PRN Nausea And 08/12/23 11/10/23 History tablet Vomiting diphenhydramine HCl 25 mg capsule 25 mg PO HS PRN Sleep 10/01/23 11/10/23 History (EZ Nite Sleep) doxylamine 20 mg-pyridoxine 20 mg 1 tab PO BID 10/01/23 11/10/23 History tablet,immediate and delayed release (Isatu) escitalopram oxalate 10 mg tablet 10 mg PO DAILY 10/01/23 11/10/23 History hydroxyzine HCl 25 mg tablet 25 mg PO Q6HP PRN Nausea And 10/01/23 11/10/23 History Vomiting pantoprazole 40 mg tablet,delayed 40 mg PO DAILY 10/01/23 11/10/23 History release New Prescriptions to Start Prescriptions: Allergies Allergy/AdvReac Type Severity Reaction Status Date / Time No Known Allergies Allergy Verified 10/01/23 09:32 Exam Data for Last 24 hours Vital signs and Labs for Last 24 Hours: Temp Pulse Resp BP Pulse Ox O2 Del Method 97.7 F 74 16 117/48 L 99 Room Air 11/10/23 08:15 11/10/23 08:15 11/10/23 08:15 11/10/23 08:15 11/10/23 08:15 11/10/23 08:15 I & O for Last 24 hours: Intake & Output 11/07/23 11/08/23 11/09/23 11/10/23 11:59 11:59 11:59 11:59 Weight 204 lb Constitutional Constitutional: no acute distress *Routine HEENT Exam Head: Present normocephalic Eye: Present EOMI and PERRL ENT: Present mucous membranes moist *Routine Neck Exam Neck: Present supple; Absent lymphadenopathy *Routine Respiratory Exam Respiratory: Present CTA bilaterally *Routine Cardiovascular Exam Cardiovascular: Present RRR *Routine Abdominal Exam Abdominal: Present soft and normoactive bowel sounds; Absent tenderness *Routine Rectal Exam Rectal:: deferred *Routine Genitalia Exam Genitalia:: deferred *Routine Extremities Exam Extremities: Absent cyanosis, clubbing or edema *Routine Skin Exam Skin: Present warm; Absent rash *Routine Neurological Exam Neurological: Present alert and oriented X3 Assessment and Plan *Assessment and plan (1) Hyperemesis gravidarum: Status: Acute Category: Medical Code(s): O21.0 - Mild hyperemesis gravidarum (2) Twin : Status: Acute Qualifiers: Multiple gestation type: dichorionic and diamniotic Trimester: second trimester Qualified Code(s): O30.042 - Twin , dichorionic/diamniotic, second trimester Category: Medical Code(s): O30.009 - Twin , unspecified number of placenta and unspecified number of amniotic sacs, unspecified trimester (3) Constipation during : Status: Acute Qualifiers: Trimester: second trimester Qualified Code(s): O99.612 - Diseases of the digestive system complicating , second trimester; K59.00 - Constipation, unspecified Category: Medical Code(s): O99.619 - Diseases of the digestive system complicating , unspecified trimester; K59.00 - Constipation, unspecified (4) Gastroparesis: Status: Acute Category: Medical Code(s): K31.84 - Gastroparesis Plan She is admitted for rehydration and control of nausea and vomiting. Nothing seems to have helped her with this. She does have gastroparesis and I suspect this may have something to do with her hyperemesis. She has lost a considerable amount of weight since last week. She is followed at [facility] and we will discuss the case with high risk and have her go down to be admitted there. She may need prolonged admission given her inability to keep anything down. She might be a candidate for IV alimentation. She also has a history of labor and delivery. Her last baby delivered at 33 weeks. She now has twins and she is at high risk for early delivery as well.
[2023-11-10] MEDS: ONDANSETRON 4MG/2ML VIAL 4 MG IV (10:32)
--- NOTE | 2023-11-10 13:54 | EXP.DC.SUM ---
General Admission date:: 11/09/23 Discharge date: 11/10/23 HPI HPI HPI: Patient is a 22-year-old female G3, P1 at 21 weeks gestational age currently with twins. She was in our emergency department several hours ago had a 3-hour length of stay for nausea vomiting was given IV fluids Zofran and Phenergan wished to try to go home subsequently left and has continued to vomit. She states this is her 15th ED visit during this for nausea vomiting she has had to be admitted 1 time during this hospitalization for hyperemesis. States that she weighed 217 on Thursday of this past week currently weighs 204 pounds she states she is lost 13 pounds since Thursday. She was offered admission earlier today in the emergency department but opted to try to go home now she would like to be admitted. Last admission was at [facility]. Hospital Course Hospital Course Hospital Course: She was admitted and observed overnight. She has received IV fluids as well as Reglan, Zofran, Phenergan and hydroxyzine. Despite this she continues to have nausea and vomiting. She did receive an IV rally pack with vitamins. I have discussed the case with Dr. Hidalgo at [facility] and we will go ahead and transfer her there. She may need IV alimentation. Exam Data for Last 24 hours Vital signs and Labs for Last 24 Hours: Temp Pulse Resp BP Pulse Ox O2 Del Method 97.7 F 74 16 117/48 L 99 Room Air 11/10/23 08:15 11/10/23 08:15 11/10/23 08:15 11/10/23 08:15 11/10/23 08:15 11/10/23 08:15 I & O for Last 24 hours: Intake & Output 11/08/23 11/09/23 11/10/23 11/11/23 11:59 11:59 11:59 11:59 Weight 204 lb Constitutional Constitutional: no acute distress *Routine HEENT Exam Head: Present normocephalic *Routine Neck Exam Neck: Present full ROM *Routine Respiratory Exam Respiratory: Present normal respiratory effort; Absent accessory muscle use DS: Diagnosis Discharge Diagnosis (1) Hyperemesis gravidarum: Status: Acute Code(s): O21.0 - Mild hyperemesis gravidarum (2) Twin : Status: Acute Code(s): O30.009 - Twin , unspecified number of placenta and unspecified number of amniotic sacs, unspecified trimester Qualifiers: Multiple gestation type: dichorionic and diamniotic Trimester: second trimester Qualified Code(s): O30.042 - Twin , dichorionic/diamniotic, second trimester (3) Constipation during : Status: Acute Code(s): O99.619 - Diseases of the digestive system complicating , unspecified trimester; K59.00 - Constipation, unspecified Qualifiers: Trimester: second trimester Qualified Code(s): O99.612 - Diseases of the digestive system complicating , second trimester; K59.00 - Constipation, unspecified (4) Gastroparesis: Status: Acute Code(s): K31.84 - Gastroparesis (5) History of delivery, currently in second trimester: Status: Acute Code(s): O09.892 - Supervision of other high risk pregnancies, second trimester Meds Home Medications and Allergies Home Medications Medication Instructions Recorded Confirmed Type metoclopramide HCl 10 mg tablet 10 mg PO TIDWMEAL Nausea And 08/12/23 11/10/23 History Vomiting ondansetron 4 mg disintegrating 4 mg PO TIDP PRN Nausea And 08/12/23 11/10/23 History tablet Vomiting diphenhydramine HCl 25 mg capsule 25 mg PO HS PRN Sleep 10/01/23 11/10/23 History (EZ Nite Sleep) doxylamine 20 mg-pyridoxine 20 mg 1 tab PO BID 10/01/23 11/10/23 History tablet,immediate and delayed release (Duyensta) escitalopram oxalate 10 mg tablet 10 mg PO DAILY 10/01/23 11/10/23 History hydroxyzine HCl 25 mg tablet 25 mg PO Q6HP PRN Nausea And 10/01/23 11/10/23 History Vomiting pantoprazole 40 mg tablet,delayed 40 mg PO DAILY 10/01/23 11/10/23 History release New Prescriptions to Start Prescriptions: Allergies Allergy/AdvReac Type Severity Reaction Status Date / Time No Known Allergies Allergy Verified 10/01/23 09:32 Discharge Plan Disposition Patient Disposition: Xfer Short-Term Hosp Discharge Order Discharge Orders: Discharge Order (Routine); Ordered 11/10/23 Ordered By: Anup Gilmore Follow up Plan Prescriptions/Medication Reconciliation: Continued hydroxyzine HCl 25 mg tablet 25 mg PO Q6HP PRN (Reason: Nausea And Vomiting) escitalopram oxalate 10 mg tablet 10 mg PO DAILY Patient Comments: TAKE 1 TABLET BY MOUTH DAILY pantoprazole 40 mg tablet,delayed release (DR/EC) 40 mg PO DAILY Patient Comments: TAKE 1 TABLET BY MOUTH EVERY MORNING Bonjesta 20-20 mg tablet,IR,delayed rel,biphasic 1 tab PO BID Patient Comments: TAKE 1 TABLET BY MOUTH EVERY 12 HOURS diphenhydramine HCl [EZ Nite Sleep] 25 mg capsule 25 mg PO HS PRN (Reason: Sleep) ondansetron 4 mg tablet,disintegrating 4 mg PO TIDP PRN (Reason: Nausea And Vomiting) Patient Comments: DISSOLVE 1 TABLET ON THE TONGUE EVERY 6 HOURS FOR 5 DAYS NEEDED FOR NAUSEA OR VOMITING metoclopramide HCl 10 mg tablet 10 mg PO TIDWMEAL Patient Comments: TAKE 1 TABLET BY MOUTH EVERY 6 HOURS NEEDED FOR NAUSEA OR VOMITING Problem Reconciliation Problems Reviewed?: Yes Patient Discharge Instructions ACTIVITY: Ambulate as tolerated DIET: continue same diet Providers Primary Care Provider: Ravi Askew Admit Provider: Anup Gilmore Attending Provider: Anup Gilmore
--- NOTE | 2023-11-10 14:47 | PC.NURSE ---
Active Medications Generic Name Dose Route Start Last Admin Trade Name Freq PRN Reason Stop Dose Admin Doxylamine Succinate/Pyridoxine 1 tab 11/09/23 20:00 11/10/23 13:22 Doxylamine 10mg/Pyridoxine 10mg Tablet PO 12/09/23 19:59 1 tab QID ORALIA Administration Dextrose/Lactated Ringer's 1,000 mls @ 125 mls/hr 11/09/23 18:00 11/09/23 18:08 Dextrose 5% In Lactated Ringer's 1000ml IV 12/09/23 17:59 125 mls/hr .Q8H ORALIA Administration Sodium Chloride 25 mls @ 100 mls/hr 11/09/23 19:05 11/10/23 14:14 Sod Chlor 0.9% 25ml Bag IV 12/09/23 19:04 100 mls/hr Q6HP PRN Administration PHENERGAN INFUSION Multivitamins 10 ml/ Thiamine 1,015 mls @ 125 mls/hr 11/09/23 20:00 11/10/23 08:05 HCl 100 mg/ Magnesium Sulfate IV 12/09/23 19:59 125 mls/hr 2 gm/ Lactated Ringer's DAILY ORALIA Administration Ondansetron HCl 4 mg 11/10/23 10:28 11/10/23 10:32 Ondansetron 4mg/2ml Vial IV 12/10/23 10:27 4 mg Q6HP PRN Administration Nausea And Vomiting Promethazine HCl 12.5 mg 11/09/23 17:54 11/10/23 14:14 Promethazine Hcl 25mg/Ml 1ml Vial IV 12/09/23 17:53 12.5 mg Q6HP PRN Administration Nausea And Vomiting
== END 2023-11-10 15:10 | disposition short-term general hospital (02) ==
LOC: ER 16:34 → OB 16:42
PROVIDERS: Admitting Provider Nurse Practitioner Obstetrics & Gynecology; Emergency Provider Student in an Organized Health Care Education/Training Program; PCP Internal Medicine Adolescent Medicine; Visit Provider Nurse Practitioner Obstetrics & Gynecology
DX: O30.042 Twin pregnancy, dichorionic/diamniotic, second trimester (principal); O99.612 Diseases of the digestive system complicating pregnancy, second trimester; K92.89 Other specified diseases of the digestive system; Z3A.21 21 weeks gestation of pregnancy; K59.00 Constipation, unspecified; K31.84 Gastroparesis
CPT/HCPCS: G0378; J2405

== ENCOUNTER 2023-11-17 08:08 | Outpatient (CLI) | payer OTHER, SELFPAY ==
--- NOTE | 2023-11-17 08:43 | PC.NURSE ---
FHR A 143 FHR B 121 Regular rhythm noted
[2023-11-17] MEDS: LACTATED RINGERS 1000ML 1,000 ML 999 ML IV (08:46)
[2023-11-17] MEDS: PROMETHAZINE HCL 25MG/ML 1ML VIAL 25 MG IV (08:46)
[2023-11-17 09:09] VITALS: BP 143/71; PULSE 78; RESP 18; TEMP 36.8; O2SAT 98; BMI 30.2
--- NOTE | 2023-11-17 10:35 | ECG_ITS ---
APPROVED REPORT Exam: Resting ECG HR:81 bpm ECG Measurements Heart Rate 81 AXES SC 124 P 81 QRSd 82 QRS 67 QT 335 T 44 QTc 373 Conclusion SINUS RHYTHM Normal ECG UNCONFIRMED REPORT Electronically signed by : Ravi Askew MD 11/18/2023 08:27:56
[2023-11-17 10:38] LABS: Microscopic, Urine URINE MICROSCOPIC (MICROSCOPIC)
[2023-11-17 10:47] LABS: Appearance,Urine CLEAR (Clear); Bilirubin,Urine Negative (Negative); Blood, Urine Negative (Negative); Color,Urine YELLOW (Yellow); Glucose,Urine (UA) Negative (Negative); Ketones,Urine Negative (Negative); Leukocyte Esterase,Urine Negative (Negative); Nitrate,Urine Negative (Negative); Protein,Urine 1+ (Negative); Urobilinogen,Urine 0.2 EU/dl (0.2)
[2023-11-17] MEDS: METOCLOPRAMIDE HCL 10MG/2ML VIAL 10 MG IVP (10:47)
[2023-11-17 11:01] LABS: Amphetamine/Metha Screen,Urine Negative ng/ml (<1000)
[2023-11-17 11:02] LABS: Barbiturates Screen,Urine Negative ng/ml (<200)
[2023-11-17 11:03] LABS: Benzodiazepines Screen,Urine Negative ng/ml (<200); Cannabinoid Screen,Urine Positive ng/ml (<50)
[2023-11-17 11:04] LABS: Cocaine Screen,Urine Negative ng/ml (<300)
[2023-11-17 11:05] LABS: Methadone Screen,Urine Negative ng/ml (<300); Opiate Screen,Urine Negative ng/ml (<300)
[2023-11-17 11:06] LABS: Phencyclidine Screen,Urine Negative ng/ml (<25)
[2023-11-17 11:11] LABS: Bacteria,Urine Trace /lpf; Mucus,Urine Trace /lpf; RBC,Urine Occasional #/hpf (0-3); WBC,Urine Occasional #/hpf (0-3)
[2023-11-17] MEDS: ONDANSETRON 4MG/2ML VIAL 4 MG IV (12:22)
[2023-11-17] MEDS: MAGNESIUM SULFATE 2 GM, THIAMINE HCL 100 MG, MVI, ADULT NO.1 WITH VIT K 10 ML in LACTAT... IV (12:28)
[2023-11-17 14:04] VITALS: BP 119/71; PULSE 78; RESP 18; O2SAT 100
[2023-11-17] MEDS: ACETAMINOPHEN 500MG TAB 1000 MG PO (14:16)
== END 2023-11-17 16:25 | disposition home or self-care (01) ==
LOC: OBOUT 08:09 → OB 08:10
PROVIDERS: PCP Internal Medicine Adolescent Medicine; Visit Provider Obstetrics & Gynecology
DX: O26.892 Other specified pregnancy related conditions, second trimester (principal); Z3A.22 22 weeks gestation of pregnancy; R11.10 Vomiting, unspecified; R10.9 Unspecified abdominal pain
CPT/HCPCS: 80307; 81001; 93005; G0463; J2405

== ENCOUNTER 2023-12-11 13:52 | Emergency (ER) | payer OTHER, SELFPAY ==
--- NOTE | 2023-12-11 14:04 | EXP.UTC ---
Discharge Plan Disposition Patient Disposition: Home, Self-Care Condition: Good Prescriptions Prescriptions: New prednisone 20 mg tablet 20 mg PO BID Qty: 10 0RF No Action hydroxyzine HCl 25 mg tablet 25 mg PO Q6HP PRN (Reason: Nausea And Vomiting) escitalopram oxalate 10 mg tablet 10 mg PO DAILY Patient Comments: TAKE 1 TABLET BY MOUTH DAILY pantoprazole 40 mg tablet,delayed release (DR/EC) 40 mg PO DAILY Patient Comments: TAKE 1 TABLET BY MOUTH EVERY MORNING Bonjesta 20-20 mg tablet,IR,delayed rel,biphasic 1 tab PO BID Patient Comments: TAKE 1 TABLET BY MOUTH EVERY 12 HOURS diphenhydramine HCl [EZ Nite Sleep] 25 mg capsule 25 mg PO HS PRN (Reason: Sleep) ondansetron 4 mg tablet,disintegrating 4 mg PO TIDP PRN (Reason: Nausea And Vomiting) Patient Comments: DISSOLVE 1 TABLET ON THE TONGUE EVERY 6 HOURS FOR 5 DAYS NEEDED FOR NAUSEA OR VOMITING metoclopramide HCl 10 mg tablet 10 mg PO TIDWMEAL Patient Comments: TAKE 1 TABLET BY MOUTH EVERY 6 HOURS NEEDED FOR NAUSEA OR VOMITING Referrals Follow up/Referrals: Ravi Askew MD [Primary Care Provider] - See instructions Activity Restrictions/Add. Instructions Additional Instructions/Restrictions: Rest, fluids Can take Robitussin Will call with respiratory panel results Clinical Impressions Clinical Impression: Upper respiratory infection, Instructions Patient Instructions: DI for Viral Upper Respiratory Infection -- Adult Discharge ED Provider[place] Rafia Perez [facility] [place] General Stated complaint: cough, congestion Time Seen by Provider: 12/11/23 14:13 History of Present Illness Provider Complaint: Cough, congestion, losing voice X 2 days. No fever. Denies ear pain or nasal congestion. 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 24 weeks . Onset (ago): day(s) (2) Relieving factors: none Exacerbating factors: none Associated symptoms: denies other symptoms Treatments prior to arrival: none Related Data Home Medications Medication Instructions Recorded Confirmed metoclopramide HCl 10 mg tablet 10 mg PO TIDWMEAL Nausea And 08/12/23 12/11/23 Vomiting ondansetron 4 mg disintegrating 4 mg PO TIDP PRN Nausea And 08/12/23 12/11/23 tablet Vomiting diphenhydramine HCl 25 mg capsule 25 mg PO HS PRN Sleep 10/01/23 12/11/23 (EZ Nite Sleep) doxylamine 20 mg-pyridoxine 20 mg 1 tab PO BID 10/01/23 12/11/23 tablet,immediate and delayed release (Bonjesta) escitalopram oxalate 10 mg tablet 10 mg PO DAILY 10/01/23 12/11/23 hydroxyzine HCl 25 mg tablet 25 mg PO Q6HP PRN Nausea And 10/01/23 12/11/23 Vomiting pantoprazole 40 mg tablet,delayed 40 mg PO DAILY 10/01/23 12/11/23 release Previous Rx's Medication Instructions Recorded prednisone 20 mg tablet 20 mg PO BID #10 tabs 12/11/23 Allergies Allergy/AdvReac Type Severity Reaction Status Date / Time No Known Allergies Allergy Verified 12/11/23 14:19 [facility] Disclaimer: The information contained in this section may have been updated after the patient was seen, as this information can be updated by other users. Medical History Twin gestation in second trimester Asthma Surgical History No history of previous surgery Family History No significant family history Social History Smoking Status: Unknown if ever smoked alcohol intake: never substance use type: denies use current occupational status: employed Travel in the last 8 weeks: None household members: family housing: house ROS Obtained: Yes All systems reviewed & no additional complaints except as documented Respiratory Respiratory: Reports cough Physical Exam General General appearance: alert and in no apparent distress Head Head exam: atraumatic, normocephalic and normal inspection Eye Eye exam: Present normal appearance, PERRL and EOMI ENT ENT exam: Present normal exam, normal oropharynx, mucous membranes moist, TM's normal bilaterally and normal external ear exam Neck Neck exam: Present normal inspection, full ROM and trachea midline; Absent meningismus or lymphadenopathy Chest Chest inspection: Present normal inspection and symmetric chest wall rise; Absent tenderness Respiratory Respiratory exam: Present normal lung sounds bilaterally; Absent respiratory distress Cardiovascular Cardiovascular exam: Present regular rate and normal rhythm; Absent JVD Abdominal Exam Abdominal exam: Present soft and normal bowel sounds; Absent distention, tenderness or guarding Extremities Exam Extremities exam: Present normal inspection, full ROM and normal capillary refill; Absent calf tenderness Back Exam Back exam: Present normal inspection; Absent tenderness Neurological Exam Neurological exam: Present alert and oriented X3 Psychiatric Psychiatric exam: Present normal affect and normal mood Skin Skin exam: Present warm, dry, intact and normal color Lymphatic Lymphatic Findings: no adenopathy Medical Decision Making Vivek Inquiry Pt receiving controlled substance: No Lab Data Lab results reviewed: Yes I reviewed the patient's lab results.
[2023-12-11 14:10] VITALS: BP 134/61; PULSE 91; RESP 19; TEMP 36.9; O2SAT 98; BMI 31.9
[2023-12-11 14:21] LABS: Adenovirus,PCR Not Detected (NotDetected); Bordetella Pertussis Not Detected (NotDetected); Chlamydophila Pneumoniae, PCR Not Detected (NotDetected); Coronavirus 19, PCR Not Detected (NotDetected); Coronavirus 229E Not Detected (NotDetected); Coronavirus NL63 Not Detected (NotDetected); Coronavirus OC43 Not Detected (NotDetected); Coronovirus HKU1,PCR Not Detected (NotDetected); Human Metapneumovirus Not Detected (NotDetected); Influenza A, PCR Not Detected (NotDetected); Influenza AH1, 2009 Not Detected (NotDetected); Influenza AH1, PCR Not Detected (NotDetected); Influenza AH3,PCR Not Detected (NotDetected); Influenza B, PCR Not Detected (NotDetected); Mycoplasma Pneumoniae, PCR Not Detected (NotDetected); Parainfluenza 1, PCR Not Detected (NotDetected); Parainfluenza 2, PCR Not Detected (NotDetected); Parainfluenza 3, PCR Not Detected (NotDetected); Parainfluenza 4, PCR Not Detected (NotDetected); Respiratory Syncytial Virus Not Detected (NotDetected)
--- NOTE | 2023-12-11 14:21 | PC.NURSE ---
Sent full panel to lab via tube system
--- NOTE | 2023-12-11 14:30 | PC.NURSE ---
Spoke with lab states has sample
[2023-12-11 14:36] VITALS: BP 134/61; PULSE 91; RESP 19; TEMP 36.9; O2SAT 98
[2023-12-11 17:53] LABS: Rhinovirus/Enterovirus Detected (NotDetected)
--- NOTE | 2023-12-11 20:27 | PC.NURSE ---
Called pt and LM about test results
== END 2023-12-11 14:36 | disposition home or self-care (01) ==
PROVIDERS: Emergency Provider Physician Assistant; PCP Internal Medicine Adolescent Medicine
DX: O26.892 Other specified pregnancy related conditions, second trimester (principal); B34.1 Enterovirus infection, unspecified; J06.9 Acute upper respiratory infection, unspecified; R05.9 Cough, unspecified; R09.81 Nasal congestion; J45.909 Unspecified asthma, uncomplicated; Z3A.24 24 weeks gestation of pregnancy
CPT/HCPCS: 87581; 87632; 87635; 87798; 99212; 99214; G0463

== ENCOUNTER 2023-12-30 18:27 | Outpatient (CLI) | payer OTHER, SELFPAY ==
[2023-12-30] VITALS (7 sets, daily range): BP systolic 123–164; BP diastolic 60–83; PULSE 104–122; RESP 18–20; TEMP 36.8; O2SAT 96–99; BMI 33.1
[2023-12-30 19:01] LABS: Microscopic, Urine URINE MICROSCOPIC (MICROSCOPIC)
[2023-12-30 19:06] LABS: Appearance,Urine CLEAR (Clear); Bilirubin,Urine Negative (Negative); Blood, Urine Negative (Negative); Color,Urine YELLOW (Yellow); Glucose,Urine (UA) Negative (Negative); Ketones,Urine 3+ (Negative); Leukocyte Esterase,Urine 1+ (Negative); Nitrate,Urine Negative (Negative); Protein,Urine Negative (Negative); Urobilinogen,Urine 0.2 EU/dl (0.2)
[2023-12-30] MEDS: TERBUTALINE SULFATE 1MG/ML VIAL 0.25 MG SQ (19:11)
[2023-12-30] MEDS: BETAMETHASONE ACET/PHOS 6MG/ML 5ML MDV 12 MG IM (19:17)
[2023-12-30 19:18] LABS: Barbiturates Screen,Urine Negative ng/ml (<200); Benzodiazepines Screen,Urine Negative ng/ml (<200)
[2023-12-30 19:19] LABS: Amphetamine/Metha Screen,Urine Negative ng/ml (<1000)
[2023-12-30 19:20] LABS: Cannabinoid Screen,Urine Positive ng/ml (<50); Cocaine Screen,Urine Negative ng/ml (<300)
[2023-12-30 19:21] LABS: Methadone Screen,Urine Negative ng/ml (<300)
[2023-12-30 19:21] LABS: Fetal Membrane Rupture (Rapid) Negative (Negative)
[2023-12-30 19:22] LABS: Opiate Screen,Urine Negative ng/ml (<300); Phencyclidine Screen,Urine Negative ng/ml (<25)
[2023-12-30] MEDS: CEFAZOLIN SODIUM 2 GM in 0.9 % SODIUM CHLORIDE 100 ML IV (19:22)
[2023-12-30 19:27] LABS: Bacteria,Urine 2+ /lpf
[2023-12-30] MEDS: MAGNESIUM SULFATE IN WATER 4 GM/50 ML PIGGYBACK IV (19:30)
[2023-12-30] MEDS: ONDANSETRON 4MG/2ML VIAL 4 MG IV (19:34)
[2023-12-30] MEDS: AZITHROMYCIN 250MG TABLET 500 MG PO (19:36)
--- NOTE | 2023-12-30 19:39 | PC.NURSE ---
Active Medications Generic Name Dose Route Start Last Admin Trade Name Freq PRN Reason Stop Dose Admin Cefazolin Sodium 2 gm/ Sodium 100 mls @ 200 mls/hr 12/30/23 19:15 12/30/23 19:22 Chloride IV 12/30/23 19:44 200 mls/hr ONCE ONE Administration Lactated Ringer's 1,000 mls @ 999 mls/hr 12/30/23 19:30 Lactated Ringer's 1000 Ml Bag IV 12/30/23 20:30 .Q1H1M ONE Magnesium Sulfate 4 gm in 50 mls @ 150 mls/hr 12/30/23 19:30 12/30/23 19:30 Magnesium Sulfate 4gm/50ml Premix IV 12/30/23 19:49 150 mls/hr ONCE ONE Administration
[2023-12-30] MEDS: MAGNESIUM SULFATE IN WATER 20 GM/500 ML IV.SOLN IV (19:46)
[2023-12-30] MEDS: INDOMETHACIN 25 MG CAPSULE 50 MG PO (19:48)
[2023-12-30] MEDS: PROMETHAZINE HCL 25MG/ML 1ML VIAL 25 MG IV (19:48)
--- NOTE | 2023-12-30 19:50 | P.PN_ITS ---
Subjective *Date: 12/30/23 *Time: 20:02 Interval history: She is a 23-year-old 3 para 1 aborta 1 at 27+6 weeks gestational age. She came into labor and delivery here with labor. She is known to have a twin . On arrival she was nena every 5 minutes. Her cervix was found to be 3 cm 50% is effaced, Station -2. Ultrasound confirmed a viable twin cephalic/cephalic. She also has hyperemesis and has been nauseous throughout the entire . She is nauseous here and we have given her an Phenergan and Zofran. Medical Exam Vital signs and Labs for Last 24 Hours: Vital Signs Temp Pulse Resp BP Pulse Ox O2 Del Method 12/30/23 18:47 98.3 F 104 H 20 143/83 H 99 Room Air Intake and Output 12/30/23 12/30/23 12/30/23 03:59 11:59 19:59 Other: Weight 211 lb 8 oz Patient Weight 12/31/23 11:59 Weight 211 lb 8 oz Laboratory Results - last 24 hr 12/30/23 18:42: Urine Color Yellow, Urine Appearance Clear, Urine pH 6.0, Ur Specific [address] 1.010, Urine Protein Negative, Urine Glucose (UA) Negative, Urine Ketones 3+, Urine Blood Negative, Urine Nitrate Negative, Urine Bilirubin Negative, Urine Urobilinogen 0.2, Ur Leukocyte Esterase 1+ A, Urine RBC 3-5, Urine WBC 5-10, Ur Squamous Epith Cells 5-10, Urine Bacteria 2+, Urine Opiates Screen Negative, Urine Methadone Screen Negative, Ur Barbituates Screen Negative, Ur Phencyclidine Scrn Negative, Ur Amphetamines Screen Negative, U Benzodiazepines Scrn Negative, Urine Cocaine Screen Negative, U Marijuana (THC) Screen Positive H 12/30/23 18:59: Membrane Rupture Negative I & O for Labs for Last 24 Hours: Intake & Output 12/28/23 12/29/23 12/30/23 12/31/23 11:59 11:59 11:59 11:59 Weight 211 lb 8 oz Head: Present atraumatic ENT: Present normal exam Neck: Present normal inspection Respiratory: Present normal respiratory effort; Absent accessory muscle use Comments:: uterus. Rectal (female): Present deferred Comment:: Her cervix is 3 to 4 cm, 50%, Station -2. Assessment and Plan *Assessment and plan (1) History of delivery, currently in second trimester: Status: Acute Category: Medical Code(s): O09.892 - Supervision of other high risk pregnancies, second trimester (2) Hyperemesis gravidarum: Status: Acute Category: Medical Code(s): O21.0 - Mild hyperemesis gravidarum (3) Twin : Status: Acute Qualifiers: Multiple gestation type: dichorionic and diamniotic Trimester: second trimester Qualified Code(s): O30.042 - Twin , dichorionic/diamniotic, second trimester Category: Medical Code(s): O30.009 - Twin , unspecified number of placenta and unspecified number of amniotic sacs, unspecified trimester (4) False labor before 37 completed weeks of gestation: Status: Acute Qualifiers: Trimester: third trimester Qualified Code(s): O47.03 - False labor before 37 completed weeks of gestation, third trimester Category: Medical Code(s): O47.00 - False labor before 37 completed weeks of gestation, unspecified trimester Plan She is having contractions every 5 minutes. She has received a 4 g bolus of magnesium sulfate. She is receiving IV fluids. She has received Ancef 2 g as well as 500 mg p.o. of azithromycin. She may have thrown up the azithromycin. She has received 50 mg of Indocid. She has received her first dose of steroids 12 mg IM of Celestone. We have given her Zofran a total of 8 mg IV and 12.5 mg IV of Phenergan for her nausea and vomiting. Ultrasound revealed viable twin cephalic/cephalic, normal fluid around each twin. AmniSure was negative.
--- NOTE | 2023-12-30 20:00 | PC.NURSE ---
ED MEDICATIONS Generic Name Dose Route Start Last Admin Trade Name Fredis PRN Reason Stop Dose Admin Lactated Ringer's 1,000 mls @ 999 mls/hr 12/30/23 19:30 Lactated Ringer's 1000 Ml Bag IV 12/30/23 20:30 .Q1H1M ONE Discontinued Medications Generic Name Dose Route Start Last Admin Trade Name Fredis PRN Reason Stop Dose Admin Azithromycin 500 mg 12/30/23 19:30 12/30/23 19:36 Azithromycin 250mg Tablet PO 12/30/23 19:31 500 mg ONCE ONE Administration Betamethasone Acet/Betameth SodPhos 12 mg 12/30/23 19:15 12/30/23 19:17 Betamethasone Acet/Phos 6mg/Ml 5ml Mdv IM 12/30/23 19:16 12 mg ONCE ONE Administration Cefazolin Sodium 2 gm/ Sodium 100 mls @ 200 mls/hr 12/30/23 19:15 12/30/23 19:22 Chloride IV 12/30/23 19:44 200 mls/hr ONCE ONE Administration Azithromycin 500 mg/ Sodium 250 mls @ 250 mls/hr 12/30/23 19:15 Chloride IV 12/30/23 20:14 ONCE ONE Magnesium Sulfate 4 gm in 50 mls @ 150 mls/hr 12/30/23 19:30 12/30/23 19:30 Magnesium Sulfate 4gm/50ml Premix IV 12/30/23 19:49 150 mls/hr ONCE ONE Administration Indomethacin 50 mg 12/30/23 20:00 Indomethacin 25 Mg Capsule PO 12/30/23 20:01 ONCE ONE Ondansetron HCl 4 mg 12/30/23 20:00 Ondansetron 4mg/2ml Vial IV 12/30/23 20:01 ONCE ONE Promethazine HCl 25 mg 12/30/23 20:00 Promethazine Hcl 25mg/Ml 1ml Vial IV 12/30/23 20:01 ONCE ONE Terbutaline Sulfate 0.25 mg 12/30/23 19:15 12/30/23 19:11 Terbutaline Sulfate 1mg/Ml Vial SQ 12/30/23 19:16 0.25 mg ONCE ONE Administration ORDERS Category Date Time Status Amnisure Test [ Membrane Rupture (Rapid)] Stat Lab 12/30/23 18:59 Completed Drug Screen,Urine Stat Lab 12/30/23 18:42 Completed UA [Urinalysis and Microscopic] Stat Lab 12/30/23 18:42 Completed Urine Culture Stat Micro 12/30/23 18:42 Received
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
--- NOTE | 2023-12-30 20:22 | PC.NURSE ---
ED MEDICATIONS Generic Name Dose Route Start Last Admin Trade Name Edisonq PRN Reason Stop Dose Admin Lactated Ringer's 1,000 mls @ 999 mls/hr 12/30/23 19:30 Lactated Ringer's 1000 Ml Bag IV 12/30/23 20:30 .Q1H1M ONE Magnesium Sulfate 20 gm in 500 mls @ 50 mls/hr 12/30/23 20:15 12/30/23 19:46 Magnesium Sulfate 20gm/500ml Premix (Ob Only) IV 01/29/24 20:14 50 mls/hr .Q10H ORALIA Administration 2 GM/HR Discontinued Medications Generic Name Dose Route Start Last Admin Trade Name Edisonq PRN Reason Stop Dose Admin Azithromycin 500 mg 12/30/23 19:30 12/30/23 19:36 Azithromycin 250mg Tablet PO 12/30/23 19:31 500 mg ONCE ONE Administration Betamethasone Acet/Betameth SodPhos 12 mg 12/30/23 19:15 12/30/23 19:17 Betamethasone Acet/Phos 6mg/Ml 5ml Mdv IM 12/30/23 19:16 12 mg ONCE ONE Administration Cefazolin Sodium 2 gm/ Sodium 100 mls @ 200 mls/hr 12/30/23 19:15 12/30/23 19:22 Chloride IV 12/30/23 19:44 200 mls/hr ONCE ONE Administration Azithromycin 500 mg/ Sodium 250 mls @ 250 mls/hr 12/30/23 19:15 Chloride IV 12/30/23 20:14 ONCE ONE Magnesium Sulfate 4 gm in 50 mls @ 150 mls/hr 12/30/23 19:30 12/30/23 19:30 Magnesium Sulfate 4gm/50ml Premix IV 12/30/23 19:49 150 mls/hr ONCE ONE Administration Indomethacin 50 mg 12/30/23 20:00 12/30/23 19:48 Indomethacin 25 Mg Capsule PO 12/30/23 20:01 50 mg ONCE ONE Administration Ondansetron HCl 4 mg 12/30/23 20:00 12/30/23 19:34 Ondansetron 4mg/2ml Vial IV 12/30/23 20:01 4 mg ONCE ONE Administration Promethazine HCl 25 mg 12/30/23 20:00 12/30/23 19:48 Promethazine Hcl 25mg/Ml 1ml Vial IV 12/30/23 20:01 25 mg ONCE ONE Administration Terbutaline Sulfate 0.25 mg 12/30/23 19:15 12/30/23 19:11 Terbutaline Sulfate 1mg/Ml Vial SQ 12/30/23 19:16 0.25 mg ONCE ONE Administration ORDERS Category Date Time Status Amnisure Test [ Membrane Rupture (Rapid)] Stat Lab 12/30/23 18:59 Completed Drug Screen,Urine Stat Lab 12/30/23 18:42 Completed UA [Urinalysis and Microscopic] Stat Lab 12/30/23 18:42 Completed Urine Culture Stat Micro 12/30/23 18:42 Received
== END 2023-12-30 23:19 | disposition home or self-care (01) | DRG 832 ==
LOC: OBOUT 18:28 → OB 18:29 → OBOUT 20:03 → OB 20:09
PROVIDERS: Visit Provider Nurse Practitioner Obstetrics & Gynecology
DX: O30.043 Twin pregnancy, dichorionic/diamniotic, third trimester (principal); O47.1 False labor at or after 37 completed weeks of gestation; Z3A.37 37 weeks gestation of pregnancy
CPT/HCPCS: 80307; 81001; 84112; 87086; J2405

== ENCOUNTER 2025-04-04 08:02 | Emergency (ER) | payer OTHER, SELFPAY ==
[2025-04-04] VITALS (7 sets, daily range): BP systolic 102–122; BP diastolic 65–94; PULSE 44–85; RESP 14–18; TEMP 36.7–36.9; O2SAT 99–100; BMI 24.3
--- NOTE | 2025-04-04 08:31 | CT_ITS ---
FINAL REPORT TECHNIQUE: Thin section axial images are obtained through the abdomen and pelvis after intravenous contrast. Reconstruction images were obtained from the axial data. Exam was performed using dose reduction techniques. This study was performed with techniques to keep radiation doses as low as reasonably achievable (ALARA). Individualized dose reduction techniques using automated exposure control or adjustment of mA and/or kV according to the patient's size were employed. CLINICAL HISTORY: RLQ abdominal pain, appendicitis? COMPARISON: 06/02/2023 FINDINGS: LUNG BASES: Lung bases are clear. Heart size is normal. LIVER: Homogeneous. No focal lesion. GALLBLADDER/BILIARY SYSTEM: Gallbladder is present. No gallstones. No biliary dilatation. SPLEEN: Unremarkable. PANCREAS: Unremarkable. ADRENALS: Unremarkable. KIDNEYS/URETERS/BLADDER: No hydronephrosis, renal mass, or renal stone. Unremarkable urinary bladder. GI TRACT: No small bowel obstruction or dilatation. Normal appendix. There is mild wall thickening of the distal colon, that may be secondary to incomplete distention or mild colitis. PELVIC ORGANS: An IUD is present for the uterus, which is otherwise unremarkable for age. LYMPH NODES/RETROPERITONEUM/MESENTERY: A few small mesenteric nodes are again seen, similar to the prior exam. No pelvic adenopathy is present. No abdominal aortic aneurysm. ABDOMINAL WALL: The abdominal wall is intact. FREE FLUID: No ascites. BONES: No acute osseous abnormality. IMPRESSION: Normal appendix. Mild wall thickening of the distal colon, that may be secondary to incomplete distention or mild colitis. Reviewed, Interpreted and Dictated by Ying Huff MD Transcribed by Tesha Sharma Authenticated and [facility]
[2025-04-04 08:32] LABS: Microscopic, Urine URINE MICROSCOPIC (MICROSCOPIC)
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
--- NOTE | 2025-04-04 08:40 | PC.NURSE ---
MEDICATED PT PER EMAR, PT UPDATED ON POC. CALL LIGHT WITHIN REACH
[2025-04-04] MEDS: MORPHINE 2MG/ML SYRINGE 2 MG IV (08:43)
[2025-04-04] MEDS: ONDANSETRON 4MG/2ML VIAL 4 MG IV (08:43)
[2025-04-04 08:46] LABS: Bilirubin,Urine Negative (Negative); Color,Urine YELLOW (Yellow); Glucose,Urine (UA) Negative (Negative); Ketones,Urine Negative (Negative); Leukocyte Esterase,Urine TRACE (Negative); PH,Urine 6.5 (5.0-8.5); Protein,Urine 2+ (Negative); Specific Gravity, Urine 1.025 (1.005-1.030); Urobilinogen,Urine 0.2 EU/dl (0.2)
[2025-04-04 08:47] LABS: Alanine Aminotransferase 57 U/L (12-78); Albumin Level 4.7 g/dl (3.5-5.0); Albumin/Globulin Ratio 1.3 (1.1-1.8); Alkaline Phosphatase 67 U/L (38-126); Anion Gap 11.3 mEq/L (5-15); Aspartate Amino Transferase 38 U/L (14-36); Bilirubin,Total 1.3 mg/dl (0.2-1.3); Blood Urea Nitrogen 10 mg/dl (7-17); Calcium 9.7 mg/dl (8.4-10.2); Carbon Dioxide 30 mmol/L (22.0-30.0); Chloride 103 mmol/L (98-107); Creatinine Clearance Estimated 109 mL/min (50-200); Creatinine,Serum 0.90 mg/dl (0.52-1.04); Estimated Glomerular Filt Rate 76 ml/min (>60); GFR (African American) 92 ML/MIN (>60); Globulin 3.7 g/dL (1.3-3.2); Glucose 86 mg/dl (74-100); Hematocrit 42.5 % (37.0-47.0); Hemoglobin 14.0 g/dL (12.2-16.2); Immature Granulocytes % 0.4 %; Lipase 45 U/L (23-300); Mean Corpuscular HGB Conc 32.9 g/dL (31.8-35.4); Mean Corpuscular Hemoglobin 27.9 pg (27.0-31.2); Mean Corpuscular Volume 84.7 fl (81-99); Nucleated Red Blood Cells % 0 %; Platelet Count 240 K/mm3 (142-424); Potassium 4.3 mmoL/L (3.5-5.1); Red Blood Count 5.02 M/mm3 (4.20-5.40); Red Cell Distribution Width-SD 39.8 fL; Sodium 140 mmol/L (136-145); Total Protein,Serum 8.4 g/dl (6.3-8.2); White Blood Count 9.2 K/mm3 (4.8-10.8)
[2025-04-04 08:50] LABS: Urine Pregnancy, HCG Qual. Negative (Negative)
[2025-04-04 08:53] LABS: C-Reactive Protein 1.1 mg/L (0-4)
--- NOTE | 2025-04-04 09:00 | PC.NURSE ---
PT TO CT
[2025-04-04] MEDS: SODIUM CHLORIDE 0.9% 10ML SYR (RAD ONLY) 10 ML IV (09:04)
[2025-04-04] MEDS: IOPAMIDOL-370 (76%);100ML BOTTLE 75 ML IV (09:04)
[2025-04-04 09:06] LABS: Bacteria,Urine 2+ /lpf
--- NOTE | 2025-04-04 09:20 | PC.NURSE ---
PT RETURNED FROM CT
--- NOTE | 2025-04-04 10:00 | PC.NURSE ---
rounded on pt, no needs at this time. call light within reach.
[2025-04-04 10:49] LABS: Hepatitis C Ab Qual. W/ RFX NEGATIVE (Negative)
--- NOTE | 2025-04-04 10:57 | PC.NURSE ---
dr whitlock at bedside to update pt
== END 2025-04-04 11:08 | disposition home or self-care (01) ==
PROVIDERS: Emergency Provider Student in an Organized Health Care Education/Training Program; PCP Internal Medicine Adolescent Medicine
DX: K52.9 Noninfective gastroenteritis and colitis, unspecified (principal)
CPT/HCPCS: 74177; 80053; 81001; 81025; 83690; 85025; 86140; 86803; 87086; 87389; 87491; 87591; 87661; 96374; 96375; 99285; J2270; J2405; Q9967